=== PATIENT | female | born 1980 | race Caucasian/White ===

== ENCOUNTER 2023-04-21 07:54 | Outpatient (OUT) | payer OTHER, SELFPAY | END 2023-04-21 07:55 | disposition home or self-care (01) | LOC: PST 07:58 | PROVIDERS: PCP Family Medicine; Visit Provider Obstetrics & Gynecology | DX: Z01.818 Encounter for other preprocedural examination (principal); N92.0 Excessive and frequent menstruation with regular cycle; R10.2 Pelvic and perineal pain; N94.10 Unspecified dyspareunia ==

== ENCOUNTER 2023-04-28 05:57 | Day surgery (SDC) | payer OTHER, SELFPAY ==
[2023-04-21 08:39] VITALS: BP 114/73; PULSE 82; RESP 16; TEMP 36.1; O2SAT 97; BMI 30.6
[2023-04-28] VITALS (18 sets, daily range): BP systolic 97–127; BP diastolic 54–76; PULSE 69–96; RESP 10–20; TEMP 36.3–36.4; O2SAT 95–100; BMI 30.8
[2023-04-28 06:21] LABS: Basophils Absolute Auto 0.1 10^3/uL (0.0-0.1); Basophils Percent Auto 0.8 % (0.2-2.0); Eosinophils Absolute Auto 0.1 10^3/uL (0.0-0.7); Eosinophils Percent Auto 0.8 % (0.9-7.0); Hematocrit 38.8 % (36.0-48.0); Hemoglobin 12.9 g/dL (12.0-16.0); Immature Granulocytes Abs Auto 0.02 10^3/uL (0.00-0.03); Immature Granulocytes Pct Auto 0.3 % (0.0-0.5); Lymphocytes Absolute Auto 1.3 10^3/uL (1.2-3.8); Lymphocytes Percent Auto 21.2 % (20.5-60.0); Mean Corpuscular HGB Conc 33.2 g/dL (29.9-35.2); Mean Corpuscular Hemoglobin 31.7 pg (26.7-34.0); Mean Corpuscular Volume 95.3 fL (81.0-99.0); Mean Platelet Volume 9.1 fL (9.5-13.5); Monocytes Absolute Auto 0.7 10^3/uL (0.3-0.8); Monocytes Percent Auto 10.7 % (1.7-12.0); Neutrophils Absolute Auto 4.1 10^3/uL (1.4-6.5); Neutrophils Percent Auto 66.2 % (43.0-75.0); Platelet Count 329 10^3/uL (150-450); Red Blood Count 4.07 10^6/uL (4.20-5.40); White Blood Count 6.3 10^3/uL (4.0-11.0)
[2023-04-28] MEDS: SCOPOLAMINE 1 MG/3 DAYS TRANSDERM PATCH 1 PATCH TD (06:37)
[2023-04-28] MEDS: LACTATED RINGER'S SOLUTION 1,000 ML 50 ML IV (06:38)
[2023-04-28 06:47] LABS: HCG Quantitative <1 mIU/mL
[2023-04-28] MEDS: METOCLOPRAMIDE HCL 10 MG/2 ML VIAL IVP (06:57)
--- NOTE | 2023-04-28 08:06 | P.ON_ITS ---
Brief Operative Note Date of procedure: 04/28/23 Pre-op diagnosis: MENORRHAGIA, DYSMENORRHEA, FAILED IUD, PELVIC PAIN, DYSPAREU ZEHRA Post-op diagnosis: same as pre-op Procedure: NAME OF PROCEDURE: [diagnostic laparoscopy with lysis of omental adhesions] PROCEDURE: The patient was taken back to the Operating Room where she was placed in dorsal lithotomy position after given general anesthesia. The patient was prepped and draped in normal sterile fashion. A sponge stick was placed into the patient's vagina. Attention was turned to the patient's abdomen, where a small umbilical incision was made. The fascia was tented using Ed clamps and the fascia was entered sharply. Confirmation of intraabdominal placement of the 10 mm port was confirmed under direct visualization using a laparoscope. The patient's abdomen was then insufflated using CO2 gas with approximately 4 liters. A second port was placed right and left laterally, this was done under direct visualization with a 5 mm ports. Survey of the patient's abdomen demonstrated normal liver and gallbladder. Survey of the patient's pelvic anatomy demonstrated normal appearing rt and lt ovary and tubes as well as normal appearing uterus. No endometrial implants could be noted, no evidence of any pelvic disease was seen, normal appearing pelvic cavity. All instruments were removed from the patient's abdomen. significant omental adhesions with lysis using the ligasure apparatus. The patient's abdomen was deinsufflated of CO2 gas. The patient tolerated the procedure well. Sponge stick was removed from the patient's vagina. The patient's infraumbilical fascia was closed using #0 Vicryl on a GI needle. The patient's skin was closed laterally and infraumbilically using 4-0 Vicryl. The patient tolerated the procedure well. Sponge, lap and needle counts were correct x 2. The patient was taken to Recovery Room in stable condition.Clips from prior surgery noted adhered to bladder, the clips were grasped and gently removed Anesthesia: ILA Surgeon: John Arreguin Assurance Manager Insurance: Katrin Sorenson Estimated blood loss (mL): 5 Pathology: none sent Condition: stable Disposition: PACU
[2023-04-28] MEDS: HYDROMORPHONE HCL 0.5 MG/0.5 ML SYRINGE IV (08:46)
[2023-04-28] MEDS: LACTATED RINGER'S SOLUTION 1,000 ML 150 ML IV (09:47)
--- NOTE | 2023-04-28 10:36 | PC.NURSE ---
pt urinates without difficulty
== END 2023-04-28 10:40 | disposition home or self-care (01) ==
PROVIDERS: PCP Family Medicine; Visit Provider Obstetrics & Gynecology
PROC: (CPT 840; principal; 2023-04-28 07:00)
DX: N92.0 Excessive and frequent menstruation with regular cycle (principal); R10.2 Pelvic and perineal pain; N94.10 Unspecified dyspareunia; E88.81 Metabolic syndrome and other insulin resistance; E66.9 Obesity, unspecified; Z87.891 Personal history of nicotine dependence; Z90.49 Acquired absence of other specified parts of digestive tract; Z68.30 Body mass index [BMI] 30.0-30.9, adult; K66.0 Peritoneal adhesions (postprocedural) (postinfection)
CPT/HCPCS: 49329; 58301; 58558; 36415; 84702; 85025; 88305; J1170; J2704

== ENCOUNTER 2023-08-08 21:36 | Outpatient (REF) | payer BC, SELFPAY ==
[2023-08-12 05:07] LABS: Age Gdln ACOG Testing Note (.); HPV Aptima Negative (Negative); IGP, Aptima HPV, rfx 16/18,45 Note (.)
== END 2023-08-08 21:37 | disposition home or self-care (01) ==
LOC: LAB 21:36
PROVIDERS: PCP Family Medicine; Visit Provider Obstetrics & Gynecology
DX: Z01.419 Encounter for gynecological examination (general) (routine) without abnormal findings (principal)
CPT/HCPCS: 87624; G0145

== ENCOUNTER 2023-12-20 14:39 | Outpatient (OUT) | payer BC, SELFPAY ==
[2023-12-20 15:18] LABS: Basophils Percent Auto 0.7 % (0.2-2.0); Eosinophils Absolute Auto 0.1 10^3/uL (0.0-0.7); Eosinophils Percent Auto 0.8 % (0.9-7.0); Hematocrit 36.1 % (36.0-48.0); Hemoglobin 11.8 g/dL (12.0-16.0); Immature Granulocytes Abs Auto 0.01 10^3/uL (0.00-0.03); Immature Granulocytes Pct Auto 0.2 % (0.0-0.5); Lymphocytes Absolute Auto 1.4 10^3/uL (1.2-3.8); Lymphocytes Percent Auto 23.5 % (20.5-60.0); Mean Corpuscular HGB Conc 32.7 g/dL (29.9-35.2); Mean Corpuscular Hemoglobin 30.5 pg (26.7-34.0); Mean Corpuscular Volume 93.3 fL (81.0-99.0); Mean Platelet Volume 9.3 fL (9.5-13.5); Monocytes Absolute Auto 0.5 10^3/uL (0.3-0.8); Monocytes Percent Auto 7.8 % (1.7-12.0); Platelet Count 327 10^3/uL (150-450); Red Blood Count 3.87 10^6/uL (4.20-5.40); Red Cell Distribution Width 12.5 % (11.0-15.0)
[2023-12-20 15:48] LABS: INR 0.99; Partial Thromboplastin Time 30.1 sec (22.3-36.2); Prothrombin Time 10.5 sec (9.0-11.6)
[2023-12-20 16:00] LABS: Alanine Aminotransferase 31 U/L (14-59); Albumin Globulin Ratio 0.7; Albumin Level 3.4 g/dL (3.4-5.0); Alkaline Phosphatase 71 U/L (46-116); Anion Gap 13.3; Aspartate Amino Transferase 19 U/L (15-37); BUN Creatinine Ratio 15.5; Bilirubin Direct 0.1 mg/dL (0.0-0.2); Bilirubin Total 0.4 mg/dL (0.2-1.0); Calcium 9.3 mg/dL (8.5-10.1); Carbon Dioxide 27.3 mmol/L (21.0-32.0); Chloride 103 mmol/L (98-107); Estimated GFR (African America >60 (>=60); Estimated GFR (Non-African Ame >60 (>=60); Globulin 4.7 g/dL; Glucose 85 mg/dL (74-106); Potassium 3.6 mmol/L (3.5-5.1); Sodium 140 mmol/L (136-145); Total Protein 8.1 g/dL (6.4-8.2)
== END 2023-12-20 14:40 | disposition home or self-care (01) ==
LOC: PST 14:40
PROVIDERS: PCP Family Medicine; Visit Provider Obstetrics & Gynecology
DX: Z01.812 Encounter for preprocedural laboratory examination (principal); N92.0 Excessive and frequent menstruation with regular cycle; R10.2 Pelvic and perineal pain; N94.6 Dysmenorrhea, unspecified; N94.10 Unspecified dyspareunia
CPT/HCPCS: 80048; 80076; 85025; 85610; 85730; 86850; 86900; 86901

== ENCOUNTER 2023-12-29 13:40 | Inpatient (IN) | payer BC, SELFPAY ==
[2023-12-20 15:05] VITALS: BP 116/74; PULSE 67; TEMP 36.5; O2SAT 98; BMI 32.6
[2023-12-29] VITALS (13 sets, daily range): BP systolic 110–136; BP diastolic 69–84; PULSE 74–91; TEMP 36.2–36.9; O2SAT 92–100; BMI 31.8
[2023-12-29 11:27] LABS: Basophils Percent Auto 0.7 % (0.2-2.0); Eosinophils Absolute Auto 0.1 10^3/uL (0.0-0.7); Eosinophils Percent Auto 1.4 % (0.9-7.0); Hematocrit 40.8 % (36.0-48.0); Hemoglobin 13.4 g/dL (12.0-16.0); Immature Granulocytes Abs Auto 0.02 10^3/uL (0.00-0.03); Immature Granulocytes Pct Auto 0.3 % (0.0-0.5); Lymphocytes Absolute Auto 1.3 10^3/uL (1.2-3.8); Lymphocytes Percent Auto 22.5 % (20.5-60.0); Mean Corpuscular HGB Conc 32.8 g/dL (29.9-35.2); Mean Corpuscular Hemoglobin 30.4 pg (26.7-34.0); Mean Corpuscular Volume 92.5 fL (81.0-99.0); Monocytes Absolute Auto 0.6 10^3/uL (0.3-0.8); Monocytes Percent Auto 10.1 % (1.7-12.0); Neutrophils Absolute Auto 3.7 10^3/uL (1.4-6.5); Platelet Count 370 10^3/uL (150-450); Red Blood Count 4.41 10^6/uL (4.20-5.40); Red Cell Distribution Width 12.5 % (11.0-15.0); White Blood Count 5.7 10^3/uL (4.0-11.0)
[2023-12-29 11:51] LABS: HCG Quantitative <1 mIU/mL
[2023-12-29] MEDS: LACTATED RINGER'S SOLUTION 1,000 ML 50 ML IV ×2 (11:58→13:32)
[2023-12-29] MEDS: FAMOTIDINE/PF 20 MG/2 ML VIAL IV (11:59)
[2023-12-29] MEDS: SCOPOLAMINE 1 MG/3 DAYS TRANSDERM PATCH 1 PATCH TD (11:59)
[2023-12-29] MEDS: CEFAZOLIN SODIUM/DEXTROSE,ISO 2 GM/50 ML PIGGYBACK IV ×3 (12:34→23:39)
--- NOTE | 2023-12-29 14:31 | P.ON_ITS ---
Brief Operative Note Date of procedure: 12/29/23 Pre-op diagnosis general: pelvic pain, dysmenorrhea, dyspareunia, aub Post-op diagnosis: same as pre-op Procedure: NAME OF PROCEDURE: [ ]Total abdominal hysterectomy, bilateral salpingectomy with cystoscopy. PROCEDURE: Patient was taken back to the Operating Room where she was given general anesthesia without difficulty. She was then prepped and draped in the normal sterile fashion. A Pfannenstiel skin incision was then made 2 cm above the symphysis and pubis and carried down to underlying rectus fascia using a Bovie. The fascia was incised in the midline and extended bilaterally using Rivers scissors. Two Ed clamps were placed on the superior aspect of the fascia and dissected off the underlying rectus muscle. The same was performed on the inferior aspect as well. The muscle was then in the midline. The peritoneum was identified and entered bluntly. Peritoneum was then extended superiorly and inferiorly with good visualization of the bladder. An O'Lxqskhel-T-Waqpxu retractor was placed into the patient's abdomen. The bowel was packed away with moist laparotomy sponges and the bladder blade was inserted. A Leahey tenaculum was placed on the patient's uterus and used for retraction. LigaSure apparatus was then used to come across the mesosalpingx from the fimbriated end to the uteroovarian ligament on the patient's right side which was then cauterized and transected. TThis wascarried down serially through the broad ligament and across the round ligament. The bladder flap was then created using the Metzenbaum scissors, and thebladder was easily dissected off the patient's lower uterine segment. A curved Stephan was placed across the uterine artery on the right side which was clamped, transected, and suture ligated using #0 Monocryl. This was performed on the contralateral side as well. The bladder was further dissected and a Zeppelin clamp was then placed across the uterosacral and cardinal ligaments. This was transected and suture ligated using #0 Monocryl. This was performed on the contralateral side as well. The uterus was then amputated using Katie scissors. The patient's cuff was closed using #0 PDS in a running locked fashion and this was transfixed to the ipsilateral uterosacral and cardinal ligaments. Excellent hemostasis was assured. The patient's abdomen wascopiously irrigated using warm saline. Cystoscopy was performed. Bladder was intact. Efflux was noted from both ostia. Cystoscope was removed.After excellent hemostasis was assured, all instruments were removed from the patient's abdomen. The patient's peritoneum was closed using 3-0 Vicryl in a running fashion. The patient's fascia was closed using #0 Vicryl in a running fashion. The patient's skin was closed using 4-0 vicryl on a randell needle. The patient tolerated the procedure well. Sponge, lap, and needle counts were correct times two. Patient taken to the Recovery Room in stable condition Anesthesia: ILA Surgeon: John Arreguin Exceptional Student Education Teacher: Mily Napier Estimated blood loss (mL): 100 Pathology: none sent (uterus cervix and tube) Condition: stable Disposition: PACU Urinary Catheter Management Urinary Catheter Management Urethral: Cath placed during this visit: no
[2023-12-29] MEDS: HYDROMORPHONE HCL 0.5 MG/0.5 ML SYRINGE IV ×2 (15:05→15:11)
--- NOTE | 2023-12-29 15:27 | PC.NURSE ---
Medicated with IV Dilaudid as ordered
--- NOTE | 2023-12-29 15:30 | PC.NURSE ---
Medicated as ordered for pain
[2023-12-29] MEDS: OXYCODONE HCL/ACETAMINOPHEN 5MG/325MG 2 TAB PO (16:41)
[2023-12-29] MEDS: LACTATED RINGER'S SOLUTION 1,000 ML 125 ML IV (17:37)
[2023-12-29] MEDS: ONDANSETRON PF 4 MG/2 ML VIAL IV (23:43)
[2023-12-29] MEDS: KETOROLAC TROMETHAMINE 30 MG/ML VIAL IVP (23:43)
[2023-12-30] MEDS: LACTATED RINGER'S SOLUTION 1,000 ML 125 ML IV (01:26)
[2023-12-30 04:51] VITALS: BP 114/69; PULSE 69; TEMP 37.2; O2SAT 97
[2023-12-30 05:44] LABS: Basophils Percent Auto 0.2 % (0.2-2.0); Eosinophils Percent Auto 0.1 % (0.9-7.0); Hematocrit 35.4 % (36.0-48.0); Hemoglobin 11.5 g/dL (12.0-16.0); Immature Granulocytes Abs Auto 0.03 10^3/uL (0.00-0.03); Immature Granulocytes Pct Auto 0.2 % (0.0-0.5); Lymphocytes Absolute Auto 1.3 10^3/uL (1.2-3.8); Lymphocytes Percent Auto 10.4 % (20.5-60.0); Mean Corpuscular HGB Conc 32.5 g/dL (29.9-35.2); Mean Corpuscular Hemoglobin 30.5 pg (26.7-34.0); Mean Corpuscular Volume 93.9 fL (81.0-99.0); Mean Platelet Volume 9.7 fL (9.5-13.5); Monocytes Absolute Auto 1.4 10^3/uL (0.3-0.8); Monocytes Percent Auto 11.1 % (1.7-12.0); Neutrophils Absolute Auto 9.5 10^3/uL (1.4-6.5); Platelet Count 343 10^3/uL (150-450); Red Blood Count 3.77 10^6/uL (4.20-5.40); Red Cell Distribution Width 12.4 % (11.0-15.0); White Blood Count 12.2 10^3/uL (4.0-11.0)
[2023-12-30] MEDS: ENOXAPARIN SODIUM 40 MG/0.4 ML SYRINGE SUBQ (06:03)
[2023-12-30] MEDS: OXYCODONE HCL/ACETAMINOPHEN 5MG/325MG 1 TAB PO (09:04)
[2023-12-30] MEDS: MAGNESIUM HYDROXIDE 2,400 MG/10 ML ORAL.SUSP 2400 MG PO (09:04)
[2023-12-30] MEDS: KETOROLAC TROMETHAMINE 30 MG/ML VIAL IVP (09:51)
[2023-12-30] MEDS: SIMETHICONE 80 MG TAB.CHEW PO (09:57)
--- NOTE | 2023-12-30 11:43 | P.GYNPN_ITS ---
SYSTEMS ENG - PN: Subj Post-Op Interval history: denies cp sob ct, ambulating well, denies nv.d.f.c. positive flatus Subjective: patient reports feeling better, patient has no complaints and pain is well controlled Exam Constitutional Vital Signs, click to edit/add: Last Vital Signs Temp 98.9 F 12/30/23 04:51 Pulse 69 12/30/23 04:51 Resp 16 12/30/23 04:51 BP 114/69 12/30/23 04:51 Pulse Ox 97 12/30/23 04:51 O2 Del Method Room Air 12/30/23 04:51 Documenting provider has reviewed patient's vital signs: yes Common normals: no apparent distress Respiratory Common normals: normal respiratory effort and clear to auscultation bilaterally Cardio Common normals: regular rate and regular rhythm GI Common normals: Normal to inspection, nondistended, normoactive bowel sounds present Extremity Common normals: no clubbing, cyanosis or edema and no calf tenderness Results Labs Labs: Short CBC 12/30/23 Range/Units 04:33 WBC 12.2 H (4.0-11.0) 10^3/uL Hgb 11.5 L (12.0-16.0) g/dL Hct 35.4 L (36.0-48.0) % Plt Count 343 (150-450) 10^3/uL SYSTEMS ENG - A/P Postoperative Procedures: Procedures Operation Date: 12/29/23 12:30 Actual Procedure Side Surgeon p Total Abdominal Hysterectomy, Bilateral salpingectomy, Cystoscopy Not Applicable John Arreguin DO Postoperative day: 1 Postoperative status SYSTEMS ENG: doing well Post-operative plan SYSTEMS ENG: routine post-op care, discharge and other (precautions given, rx on chart, fu 1wk) Fall Risk Details Lewis fall scale risk level: Low Fall Risk Current medications: Current Medications Docusate Sodium (Docusate Sodium 100 Mg Capsule) 100 mg PO BID PRN PRN Reason: Constipation Enoxaparin Sodium (Enoxaparin Sodium 40 Mg/0.4 Ml Syringe) 40 mg SUBQ Q24H [facility] Last Admin: 12/30/23 06:03 Dose: 40 mg Lactated Ringer's (Lactated Ringers) 1,000 mls @ 125 mls/hr IV .Q8H [facility] Last Admin: 12/30/23 09:56 Dose: Not Given Promethazine HCl 25 mg/ Sodium (Chloride) 51 mls @ 204 mls/hr IV Q6H PRN PRN Reason: Nausea And Vomiting Ibuprofen (Ibuprofen 400 Mg Tablet) 800 mg PO Q6H PRN PRN Reason: Pain Ketorolac Tromethamine (Ketorolac Tromethamine 30 Mg/Ml Vial) 30 mg IVP Q6H PRN PRN Reason: Pain Last Admin: 12/30/23 09:51 Dose: 30 mg Ondansetron HCl (Ondansetron Pf 4 Mg/2 Ml Vial) 4 mg IV Q6H PRN PRN Reason: Nausea Last Admin: 12/29/23 23:43 Dose: 4 mg Oxycodone/Acetaminophen (Oxycodone Hcl/Acetaminophen 5mg/325mg) 1 tab PO Q6H PRN PRN Reason: Pain Last Admin: 12/30/23 09:04 Dose: 1 tab Oxycodone/Acetaminophen (Oxycodone Hcl/Acetaminophen 5mg/325mg) 2 tab PO Q6H VT N PRN Reason: Pain Last Admin: 12/29/23 16:41 Dose: 2 tab Simethicone (Simethicone 80 Mg Tab.Chew) 80 mg PO PCHS PRN PRN Reason: Abdominal Distention Last Admin: 12/30/23 09:57 Dose: 80 mg Temazepam (Temazepam 15 Mg Capsule) 30 mg PO QHS PRN PRN Reason: Sleep Time Spent With Patient Time: Total time spent is greater than 50% in coordination of care (as documented) at patient's floor/unit and/or counseling patient: Time with patient: less than 15 minutes Urinary Catheter Management Urinary Catheter Management Urethral: Cath placed during this visit: yes Urethral indwelling: No Insertion date: 12/29/23
--- OUTSIDE RECORDS SUMMARY | 2023-12-30 12:17 | XMS_ITS | CCD ---
Author Organization [facility] Care Team Providers Care Ip/Mosaic Technician Name Role Phone DONNA, DR BLACK Primary Care Unavailable ANASTACIA SANCHEZ Consulting Unavailable SHAYNA, DR KAREL Christy Attending Unavailable SHAYNA, DR KAREL Christy Admitting Unavailable CARROLL, DR MAY Consulting Unavailable CARROLL, DR MAY Admitting Unavailable CARROLL, DR MAY Attending Unavailable DONNA, DR BLACK Primary Care Unavailable SHAYNA, DR KAREL Christy Consulting Unavailable SHAYNA, DR KAREL Christy Admitting Unavailable SHAYNA, DR KAREL Christy Attending Unavailable DONNA, DR BLACK Primary Care Unavailable ANASTACIA SANCHEZ Consulting Unavailable DONNA, DR BLACK Primary Care Unavailable SHAYNA, DR KAREL Christy Attending Unavailable SHAYNA, DR KAREL Christy Admitting Unavailable EZEQUIEL, DR JJ Jordan Consulting Unavailable SHAYNA, DR KAREL Christy Consulting Unavailable DONNA, DR BLACK Primary Care Unavailable SHAYNA, DR KAREL Christy Consulting Unavailable SHAYNA, DR KAREL Christy Admitting Unavailable SHAYNA, DR KAREL Christy Attending Unavailable DONNA, DR BLACK Primary Care Unavailable ANASTACIA SANCHEZ Consulting Unavailable SHAYNA, DR KAREL Christy Admitting Unavailable SHAYNA, DR KAREL Christy Attending Unavailable ANASTACIA SANCHEZ Consulting Unavailable SHAYNA, DR KAREL Christy Attending Unavailable SHAYNA, DR KAREL Christy Admitting Unavailable DONNA, DR BLACK Primary Care Unavailable DONNA, DR BLACK Primary Care Unavailable SHAYNA, DR KAREL Christy Attending Unavailable SHAYNA, DR KAREL Christy Consulting Unavailable SHAYNA, DR KAREL Christy Admitting Unavailable DEVENDRA LOIVA Consulting Unavailable DONNA, DR BLACK Primary Care Unavailable SHAYNA, DR KAREL Christy Consulting Unavailable SHAYNA, DR KAREL Christy Admitting Unavailable SHAYNA, DR KAREL Christy Attending Unavailable SHAYNA, DR KAREL Christy Attending Unavailable DONNA, DR BLACK Consulting Unavailable SHAYNA, DR KAREL Christy Admitting Unavailable DONNA, DR BLCAK Primary Care Unavailable SHAYNA, DR KAREL Christy Consulting Unavailable CALEROHITESH MONTGOMERY Consulting Unavailable SHAYNA, DR KAREL Christy Attending Unavailable SHAYNA, DR KAREL Christy Admitting Unavailable DONNA, DR BLACK Consulting Unavailable HOY, DR BLACK Primary Care Unavailable SANCHEZ, ANASTACIA Consulting Unavailable HOOmar, DR BLACK Primary Care Unavailable SHAYNA, DR KAREL Christy Consulting Unavailable SHAYNA, DR KAREL Christy Admitting Unavailable SHAYNA, DR KAREL Christy Attending Unavailable DEVENDRA OLIVA Consulting Unavailable DONNA, DR BLACK Primary Care Unavailable SANCHEZ, ANASTACIA Consulting Unavailable SHAYNA, DR KAREL Christy Admitting Unavailable SHAYNA, DR KAREL Christy Attending Unavailable CORRAL, DR KAREL Christy Attending Unavailable CORRAL, DR KAREL Christy Consulting Unavailable CORRAL, DR KAREL Christy Admitting Unavailable HOY, DR BLACK Primary Care Unavailable HOY, DR BLACK Primary Care Unavailable CORRAL, DR KAREL Christy Consulting Unavailable SHAYNA, DR KAREL Christy Admitting Unavailable SHAYNA, DR KAREL Christy Attending Unavailable FOREIGN BERNAL Consulting Unavailable RUBINY, DR BLACK Admitting Unavailable HOY, DR BLACK Attending Unavailable HOY, DR BLACK Consulting Unavailable HOY, DR BLACK Primary Care Unavailable BROWNJJ Consulting Unavailable SHAYNA, DR KAREL Christy Consulting Unavailable SHAYNA, DR KAREL Christy Attending Unavailable REQUEST, DR BARRON LISTED Primary Care Unavaila ble SHAYNA, DR KAREL Christy Admitting Unavailable SHAYNA, DR KAREL Christy Attending Unavailable HOOmar, DR BLACK Consulting Unavailable SHAYNA, DR KAREL Christy Admitting Unavailable HOY, DR BLACK Primary Care Unavailable SANCHEZ, ANASTACIA Consulting Unavailable HOY, DR BLACK Primary Care Unavailable HOY, DR BLACK Admitting Unavailable HOOmar, DR BLACK Attending Unavailable SANCHEZ, ANASTACIA Admitting Unavailable ZIMEREDITH, DR CIARA Oliva Consulting Unavailable SANCHEZ, ANASTACIA Attending Unavailable HOY, DR BLACK Primary Care Unavailable SANCHEZ, ANASTACIA Consulting Unavailable SHAYNA, DR KAREL Christy Attending Unavailable SHAYNA, DR KAREL Christy Admitting Unavailable HOY, DR BLACK Primary Care Unavailable SHAYNA, DR KAREL Christy Consulting Unavailable SHAYNA, DR KAREL Christy Attending Unavailable SHAYNA, DR KAREL Christy Admitting Unavailable DONNA, DR BLACK Primary Care Unavailable CARROLL, DR MAY Consulting Unavailable CARROLL, DR MAY Admitting Unavailable CARROLL, DR MAY Attending Unavailable DONNA, DR BLACK Primary Care Unavailable YADIRA HODGES Attending Unavailable ANNA BRADEN Attending Unavailable ANNA BRADEN Attending Unavailable YADIRA HODGES Attending Unavailable Problems Active Problems Problem Classification Problem Date Documented Da te Episodic/Chronic Other connective tissue disease (1 source) Pain in left leg; Translations: [PAIN IN LEFT LEG] Onset: 04-22-2022 Episodic Other connective tissue disease (1 source) Pain in right leg; Translations: [PAIN IN RIGHT LEG] Onset: 04-22-2022 Episodic Other nervous system disorders (1 source) Other chronic pain; Translations: [OTHER CHRONIC PAIN] Onset: 04-22-2022 Chronic Spondylosis; intervertebral disc disorders; other back problems (12 sources) Spondylosis without myelopathy or radiculopathy, cervical region; Translations: [Spondylosis without myelopathy or radiculopathy, lumbar region] Onset: 07-23-2021 Chronic Spondylosis; intervertebral disc disorders; other back problems (20 sources) Radiculopathy, lumbar region; Translations: [Cervicalgia] Onset: 08-17-2021 Episodic Unclassified (4 sources) LOW BACK PAIN, UNSPECIFIED; Translations: [LOW BACK PAIN, UNSPECIFIED] Onset: 03-03-2022 Unclassified (1 source) CONTACT W/AND (SUSP) EXPOS COVID-19; Translations: [CONTACT W/AND (SUSP) EXPOS COVID-19] Onset: 01-27-2022 Past or Other Problems Problem Classification Problem Date Documented Date Episodic/Chronic Immunizations and screening for infectious disease (1 source) Encounter for screening for human papillomavirus (HPV); Translations: [ENC SCREENING HUMAN PAPILLOMAVIRUS] Onset: 01-13-2022 Episodic Other screening for suspected conditions (not mental disorders or infectious disease) (4 sources) Encounter for screening for malignant neoplasm of cervix; Translations: [ENC SCREENING MALIG NEOPLASM CERV] Onset: 01-11-2022 Episodic Other skin disorders (4 sources) Generalized hyperhidrosis; Translations: [GENERALIZED HYPERHIDROSIS] Onset: 01-12-2022 Episodic Residual codes; unclassified (4 sources) Localized edema; Translations: [LOCALIZED EDEMA] Onset: 07-28-2021 Episodic Unclassified (1 source) LOW BACK PAIN, UNSPECIFIED; Translations: [LOW BACK PAIN, UNSPECIFIED] Onset: 06-15-2022 Results Test Name Value Interpretation Reference Range Facility XR LSPINE W_OBLS AND FLEX_EX Ton 06-16-2022 XR LSPINE W_OBLS AND FLEX_EXT EXAMINATION: XR LSPINE W_OBLS AND FLEX_EXT HISTORY: Lumbar radiculitis COMPARISON: 12/14/2019 FINDINGS: BONES: Normal alignment of the lumbar spine with no acute fracture or spondylolisthesis. Minimal degenerative change DISC SPACES: Stable mild to moderate narrowing L5-S1 PARASPINOUS: Negative. No paraspinous abnormality is seen. OTHER: No transient spondylolisthesis with flexion or extension IMPRESSION: Stable degenerative changes with no dynamic instability Electronically authenticated by: JJ NIEVES Date: 2022-06-16 07:28 Normal [facility] XR CSPINE OBL FLEX_EXTon XR CSPINE OBL FLEX_EXT EXAMINATION: XR CSPINE OBL FLEX_EXT HISTORY: Neck pain ; acute cervical spine pain, no known injury COMPARISON: No relevant comparison available. FINDINGS: BONES: Straightening of the normal lordotic curvature. No fracture, spondylolisthesis, or change in alignment during flexion and extension. No facet joint widening or fracture. Minimal degenerative changes of the facet joints at C5-6 and C6-7. DISC SPACES: Minimal narrowing C4-5, C5-6, C6-7-7. PARASPINOUS: No paraspinous abnormality is seen. OTHER: Negative. IMPRESSION: 1. No appreciable acute abnormality. 2. Multilevel mild degenerative changes. Electronically authenticated by: CIARA ROQUE Date: 2022-03-31 15:57 Normal [facility] PREG HCG QUALon 01-26-2022 , QUAL Negative Normal NEGATIVE [facility] Comment on above: Performed By: #### P REG #### [facility] [address] [place] [address] Dr. Linnette Ventura [facility] SARS-CoV-2 (COVID-19) RNA AYAZ+probe Ql (Unsp spec) Not detected Normal NOT DETECTED [facility] Comment on above: Result Comment: When diagnostic testing is negative, the possibility of a false negative should be considered in the context of a patient's recent exposures and the presence of clinical signs and symptoms consistent with SARS-CoV-2. This test is not yet approved or cleared by the [place] FDA. When there are no FDA-approved or cleared tests available, and other criteria are met, FDA can make tests available under an emergency access mechanism called an Emergency Use Authorization (EUA). The EUA for this test is supported by the [place] of Health and Human Service's declaration that circumstances exist to justify the emergency use of in vitro diagnostics for the detection and/or diagnosis of the virus that causes COVID-19. This EUA will remain in effect for the duration of the COVID-19 declaration justifying emergency of IVDs, unless it is terminated or revoked by the FDA (after which the test may no longer be used). Performed By: #### C VDTB #### [facility] [address] [address] [address] Linnette Ventura PAP ACOG PANEL 2: 30 to 65on 01-15-2022 . . Normal [facility] Comment on above: Result Comment: Perf ormed at: WB Performed By: #### A 1C #### [facility] [address] [place] [address] Dr. Linnette Ventura Age Gdln ACOG Testing 30-65 Normal [facility] Comment on above: Performed By: #### A 1C #### [facility] [address] [place] [address] Dr. Linnette Ventura DIAGNOSIS: Comment Normal [facility] Comment on above: Result Comment: NEGA TIVE FOR INTRAEPITHELIAL LESION OR MALIGNANCY. Performed at: WB Performed By: #### A 1C #### [facility] [address] [place] [address] Dr. Linnette Ventura HPV Aptima Negative Normal Negative [facility] Comment on above: Result Comment: This nucleic acid amplification test detects fourteen high-risk HPV types (16,18,31,33,35,39,45,51,52,56,58,59,66,68) without differentiation. Performed at: =G Performed By: #### A 1C #### [facility] [address] [place] [address] Dr. Linnette Ventura Methodology: Comment Normal [facility] Comment on above: Result Comment: This liquid based ThinPrep(R) pap test was screened with the use of an image guided system. Performed at: WB Performed By: #### A 1C #### [facility] [address] [place] [address] Dr. Linnette Ventura Note: Comment Normal [facility] Comment on above: Result Comment: The Pap smear is a screening test designed to aid in the detection of premalignant and malignant conditions of the uterine cervix. It is not a diagnostic procedure and should not be used as the sole means of detecting cervical cancer. Both false-positive and false-negative reports do occur. . Performed at: WB Performed By: #### A 1C #### [facility] [address] [place] [address] Dr. Linnette Ventura Performed by: Comment Normal [facility] Comment on above: Result Comment: Anna Pollard, Irrigation Equipment Installer (ASCP) Performed at: WB Performed By: #### A 1C #### [facility] [address] [place] [address] Dr. Linnette Ventura Specimen adequacy: Comment Normal [facility] Comment on above: Result Comment: Sati sfactory for evaluation. Endocervical and/or squamous metaplastic cells (endocervical component) are present. Performed at: WB Performed By: #### A 1C #### [facility] [address] [place] [address] Dr. Linnette Ventura CBC AUTO DIFFon 01-12-2022 BASO # 0.0 103/ul Normal 0.0-0.1 [facility] Comment on above: Performed By: #### C BC #### [facility] [address] [place] [address] Dr. Linnette Ventura Basophils/100 WBC (Bld) 0.5 % Normal 0.2-2.0 [facility] Comment on above: Performed By: #### C BC #### [facility] [address] [place] [address] Dr. Linnette Ventura EO # 0.1 103/ul Normal 0.0-0.7 [facility] Comment on above: Performed By: #### C BC #### [facility] [address] [place] [address] Dr. Linnette Ventura Eosinophils/100 WBC (Bld) 1.8 % Normal 0.9-7.0 [facility] Comment on above: Performed By: #### C BC #### [facility] [address] [place] [address] Dr. Linnette Ventura Erythrocyte distribution width (RBC) [Ratio] 12.4 % Normal 11.0-15.0 [facility] Comment on above: Performed By: #### C BC #### [facility] [address] [place] [address] Dr. Linnette Ventura Hematocrit (Bld) [Volume fraction] 39.3 % Normal 36.0-48.0 [facility] Comment on above: Performed By: #### C BC #### [facility] [address] [place] [address] Dr. Linnette Ventura Hemoglobin (Bld) [Mass/Vol] 13.2 g/dL Normal 12.0-16.0 [facility] Comment on above: Performed By: #### C BC #### [facility] [address] [place] [address] Dr. Linnette Ventura IG # 0.02 10e3/ul Normal 0.00-0.03 [facility] Comment on above: Performed By: #### C BC #### [facility] [address] [place] [address] Dr. Linnette Ventura IG % 0.4 % Normal 0.0-0.5 [facility] Comment on above: Performed By: #### C BC #### [facility] [address] [place] [address] Dr. Linnette Ventura LYMPH # 1.4 103/ul Normal 1.2-3.8 [facility] Comment on above: Performed By: #### C BC #### [facility] [address] [place] [address] Dr. Linnette Ventura Lymphocytes/100 WBC (Bld) 24.7 % Normal 20.5-60.0 [facility] Comment on above: Performed By: #### C BC #### [facility] [address] [place] [address] Dr. Linnette Ventura MANUAL DIFF REQ NO Normal [facility] Comment on above: Performed By: #### C BC #### [facility] [address] [place] [address] Dr. Linnette Ventura MCH (RBC) [Entitic mass] 31.8 pg Normal 26.7-34.0 [facility] Comment on above: Performed By: #### C BC #### [facility] [address] [place] [address] Dr. Linnette Ventura MCHC (RBC) [Mass/Vol] 33.6 g/dL Normal 29.9-35.2 [facility] Comment on above: Performed By: #### C BC #### [facility] [address] [place] [address] Dr. Linnette Ventura MCV (RBC) [Entitic vol] 94.7 fL Normal 81.0-99.0 [facility] Comment on above: Performed By: #### C BC #### [facility] [address] [place] [address] Dr. Linnette Ventura MONO # 0.7 103/ul Normal 0.3-0.8 [facility] Comment on above: Performed By: #### C BC #### [facility] [address] [place] [address] Dr. Linnette Ventura Monocytes/100 WBC (Bld) 12.2 % Critically high 1.7-12.0 [facility] Comment on above: Performed By: #### C BC #### [facility] [address] [place] [address] Dr. Linnette Ventura NEUT # 3.3 103/ul Normal 1.4-6.5 [facility] Comment on above: Performed By: #### C BC #### [facility] [address] [place] [address] Dr. Linnette Ventura Neutrophils/100 WBC (Bld) 60.4 % Normal 43.0-75.0 [facility] Comment on above: Performed By: #### C BC #### [facility] [address] [place] [address] Dr. Linnette Ventura Platelet mean volume (Bld) [Entitic vol] 8.9 fL Critically low 9.5-13.5 [facility] Comment on above: Performed By: #### C BC #### [facility] [address] [place] [address] Dr. Linnette Ventura PLT 310 103/ul Normal 150-450 [facility] Comment on above: Performed By: #### C BC #### [facility] [address] [address] [address] Linnette Ventura RBC 4.15 106/ul Critically low 4.20-5.40 [facility] Comment on above: Performed By: #### C BC #### [facility] [address] [place] [address] Dr. Linnette Ventura WBC 5.5 103/ul Normal 4.0-11.0 [facility] Comment on above: Performed By: #### C BC #### [facility] [address] [place] [address] Dr. Linnette Ventura GLYCOHEMOGLOBIN A1Con 2021 ADA RECOMMENDATION SEE BELOW Normal [facility] Comment on above: Result Comment: ADA RECOMMENDED LIMIT 4.0 - 6.0 ADA THERAPEUTIC TARGET < 7.0 ACTION SUGGESTED > 7.0 Performed By: #### A 1C #### [facility] [address] [place] [address] Dr. Linnette Ventura Glucose [Mass/Vol] 100 mg/dL Normal [facility] Comment on above: Performed By: #### A 1C #### [facility] [address] [place] [address] Dr. Linnette Ventura HbA1c (Bld) [Mass fraction] 5.1 % Normal 4.5-6.2 [facility] Comment on above: Performed By: #### A 1C #### [facility] [address] [place] [address] Dr. Linnette Ventura TSHon 01-12-2022 TSH 0.789 uIU/mL Normal 0.358-3.740 [facility] Comment on above: Performed By: #### T SH #### [facility] [address] [place] [address] Dr. Linnette Ventura PREG HCG QUALon 12-22-2021 , QUAL Negative Normal NEGATIVE [facility] Comment on above: Performed By: #### P REG #### [facility] [address] [address] [address] Linnette Ventura Covid-19 PCR (CVDTB)on 11-29 SARS-CoV-2 (COVID-19) RNA AYAZ+probe Ql (Unsp spec) Not detected Normal NOT DETECTED [facility] Comment on above: Result Comment: This test is not yet approved or cleared by the [place] FDA. When there are no FDA-approved or cleared tests available, and other criteria are met, FDA can make tests available under an emergency access mechanism called an Emergency Use Authorization (EUA). The EUA for this test is supported by the [place] of Health and Human Service's (HHS's) declaration that circumstances exist to justify the emergency use of in vitro diagnostics for the detection and/or diagnosis of the virus that causes COVID-19. This EUA will remain in effect (meaning this test can be used) for the duration of the COVID-19 declaration justifying emergency of IVDs, unless it is terminated or revoked by FDA (after which the test may no longer be used). When diagnostic testing is negative, the possibility of a false negative should be considered in the context of a patient's recent exposures and the presence of clinical signs and symptoms consistent with SARS-CoV-2. Performed By: #### P REG #### [facility] [address] [place] [address] Dr. Linnette Ventura PREG HCG QUALon 12-01-2021 , QUAL Negative Normal NEGATIVE [facility] Comment on above: Performed By: #### P REG #### [facility] [address] [place] [address] Dr. Linnette Ventura Covid-19 PCR (CVDTB)on 10-31 SARS-CoV-2 (COVID-19) RNA AYAZ+probe Ql (Unsp spec) Not detected Normal NOT DETECTED [facility] Comment on above: Result Comment: This test is not yet approved or cleared by the [place] FDA. When there are no FDA-approved or cleared tests available, and other criteria are met, FDA can make tests available under an emergency access mechanism called an Emergency Use Authorization (EUA). The EUA for this test is supported by the [place] of Health and Human Service's (HHS's) declaration that circumstances exist to justify the emergency use of in vitro diagnostics for the detection and/or diagnosis of the virus that causes COVID-19. This EUA will remain in effect (meaning this test can be used) for the duration of the COVID-19 declaration justifying emergency of IVDs, unless it is terminated or revoked by FDA (after which the test may no longer be used). When diagnostic testing is negative, the possibility of a false negative should be considered in the context of a patient's recent exposures and the presence of clinical signs and symptoms consistent with SARS-CoV-2. Performed By: #### A 1C #### [facility] [address] [address] [address] Linnette Ventura PREG HCG QUALon 09-01-2021 , QUAL Negative Normal NEGATIVE [facility] Comment on above: Performed By: #### P REG #### [facility] [address] [address] [address] Linnette Ventura Covid-19 PCR (CVDTB)on 08-02 SARS-CoV-2 (COVID-19) RNA AYAZ+probe Ql (Unsp spec) Not detected Normal NOT DETECTED [facility] Comment on above: Result Comment: This test is not yet approved or cleared by the [place] FDA. When there are no FDA-approved or cleared tests available, and other criteria are met, FDA can make tests available under an emergency access mechanism called an Emergency Use Authorization (EUA). The EUA for this test is supported by the [place] of Health and Human Service's (HHS's) declaration that circumstances exist to justify the emergency use of in vitro diagnostics for the detection and/or diagnosis of the virus that causes COVID-19. This EUA will remain in effect (meaning this test can be used) for the duration of the COVID-19 declaration justifying emergency of IVDs, unless it is terminated or revoked by FDA (after which the test may no longer be used). When diagnostic testing is negative, the possibility of a false negative should be considered in the context of a patient's recent exposures and the presence of clinical signs and symptoms consistent with SARS-CoV-2. Performed By: #### C VDTBH #### [facility] [address] [place] [address] Dr. Linnette Ventura US CARL DOP LEG LTon 07-28-20 US CARL DOP LEG LT Ultrasound venous duplex scan left lower extremity CLINICAL: Left leg swelling TECHNIQUE: Boston-scale, color-flow, and Spectral Doppler examination of the left lower extremity were performed with and without provocative maneuvers. FINDINGS: Sonographic examination of the left lower extremity deep venous system to include the common femoral, superficial femoral and popliteal veins, demonstrates normal compressibility, color-flow, respiratory variation, and augmentation. The origin and proximal segment of the greater saphenous vein also demonstrates normal compression and color-flow. There is normal color-flow in the peroneal, posterior tibial, and anterior tibial veins. IMPRESSION: No deep venous thrombosis of the left lower extremity. Electronically authenticated by: JJ CARRILLO Date: 2021-07-28 17:24 Normal [facility] PREG HCG QUALon 07-21-2021 , QUAL Negative Normal NEGATIVE [facility] Comment on above: Performed By: #### P REG #### [facility] [address] [address] [address] Linnette Ventura Encounters Encounter Date Encounter Type Care Provider Facility Start: 11-30-2023 End: 11-30-2023 ambulatory YADIRA HODGES Not Available Start: 10-05-2023 End: 10-05-2023 ambulatory ANNA BRADEN Not Available Start: 09-05-2023 End: 09-05-2023 ambulatory ANNA BRADEN Not Available Start: 08-08-2023 End: 08-08-2023 ambulatory YADIRA HODGES Not Available Start: 07-01-[address] KAREL CORRAL Facili ty:[facility] Start: 06-15-2022 End: 06-16-[address] WAYNE SOLIMAN Facility:[facility] Start: 04-20-2022 End: 04-21-[address] KAREL CORRAL Facility:[facility] Start: 03-31-2022 End: 04-01-2022 ambulatory ANASTACIA SANCHEZ Facility:[facility] Start: 03-11-2022 End: 03-12-[address] KAREL CORRAL Facility:[facility] Start: 02-25-2022 End: 02-26-[address] KAREL CORRAL Facility:[facility] Start: 01-27-2022 Encounter for prepro cedural laboratory examination DR KAREL CORRAL [facility] Start: 01-26-2022 End: 01-26-[address] KAREL CORRAL Facility:[facility] Start: 01-22-2022 End: 01-23-[address] KAREL CORRAL Facility:[facility] Start: 01-22-2022 End: 01-23-2022 Encounter for preprocedural laboratory examination DR KAREL CORRAL Facility:[facility] Start: 01-12-2022 End: 01-13-[address] YADIRA HODGES Facility:[facility] Start: 01-11-2022 End: 01-11-[address] YADIRA HODGES Facility:[facility] Start: 01-06-2022 End: 01-07-[address] WAYNE SOLIMAN Facility:[facility] Start: 12-22-2021 End: 12-22-[address] WAYNE SOLIMAN Facility:[facility] Start: 12-17-2021 End: 12-18-[address] KAREL CORRAL Facility:[facility] Start: 12-09-2021 End: 12-10-[address] WAYNE SOLIMAN Facility:[facility] Start: 12-01-2021 End: 12-01-[address] WAYNE SOLIMAN Facility:[facility] Start: 11-27-2021 End: 11-28-[address] WAYNE SOLIMAN Facility:[facility] Start: 10-08-2021 End: 10-09-[address] WAYNE SOLIMAN Facility:[facility] Start: 09-01-2021 End: 09-01-[address] WAYNE SOLIMAN Facility:[facility] Start: 08-28-2021 End: 08-29-[address] WAYNE SOLIMAN Facility:[facility] Start: 08-06-2021 End: 08-07-2021 ambulatory ANASTACIA SANCHEZ Facility:[facility] Start: 08-03-[address] WAYNE SOLIMAN Facility :[facility] Start: 07-28-2021 End: 07-29-[address] WAYNE SOLIMAN Facility:[facility] Start: 07-21-2021 End: 07-21-[address] KAREL CORRAL Facility:[facility] Payers Date Payer Category Payer Unknown [id number] 2023 Unknown [id number] 1982 Unknown [id number] 2.16.84 0.1.340034.3.579.2.593 1982 Unknown [id number] 2.16.84 0.1.327584.3.579.2.593 1982 Unknown [id number] 2.16.84 0.1.275594.3.579.2.593 1982 Unknown [id number] 2.16.84 0.1.418642.3.579.2.593 1982 Unknown [id number] 2.16.84 0.1.250047.3.579.2.593 1982 Unknown [id number] 2.16.84 0.1.235076.3.579.2.593 1982 Unknown [id number] 2.16.84 0.1.169438.3.579.2.593 1982 Unknown [id number] 2.16.84 0.1.476307.3.579.2.593 1982 Unknown [id number] 2.16.84 0.1.738125.3.579.2.593 1982 Unknown [id number] 2.16.84 0.1.009142.3.579.2.593 1982 Unknown [id number] 2.16.84 0.1.761353.3.579.2.593 1982 Unknown [id number] 2.16.84 0.1.170501.3.579.2.593 1982 Unknown [id number] 2.16.84 0.1.156153.3.579.2.593 1982 Unknown [id number] 2.16.84 0.1.684604.3.579.2.593 1982 Unknown [id number] 2.16.84 0.1.789369.3.579.2.593 1982 Unknown [id number] 2.16.84 0.1.466777.3.579.2.593 1982 Unknown [id number] 2.16.84 0.1.587303.3.579.2.593 1982 Unknown [id number] 2.16.84 0.1.344758.3.579.2.593 1982 Unknown [id number] 2.16.84 0.1.684629.3.579.2.593 1982 Unknown [id number] 2.16.84 0.1.240713.3.579.2.593 1982 Unknown [id number] 2.16.84 0.1.198192.3.579.2.593 1982 Unknown [id number] 2.16.84 0.1.332191.3.579.2.593 1982 Unknown [id number] 2.16.84 0.1.416206.3.579.2.593 1982 Unknown [id number] 2.16.84 0.1.083028.3.579.2.1259 1982 Unknown [id number] 2.16.84 0.1.754317.3.579.2.1259 1982 Unknown [id number] 2.16.84 0.1.000091.3.579.2.1259 1982 Unknown [id number] 2.16.84 0.1.445094.3.579.2.1259 1959 Unknown [id number] Consultation note 04-20-2022 Note Date & Type Note Facility 04-20-2022 Note CONSULTATION CONSULTATION DATE: 04/20/2022 CHIEF COMPLAINT: Chronic low back pain, bilateral leg pain. HISTORY OF PRESENT ILLNESS: This is a 41-year-old female who reports 8-9/10 pain. The patient ambulates without any assistive devices and in a fluid manner and with a normal gait. The patient reports any activity such as twisting, bending, housework activities, squatting aggravate the patient's pain along with ADLs. The patient reports sleep disturbances secondary to the pain. The patient also has a new pain in her cervical region. X-ray of the cervical spine was done. Reports are noted on to the chart. Minor degenerative changes are noted. The patient currently takes Motrin 800 mg q.a.m., Adipex 37 mg daily, Excedrin. The patient's PAST MEDICAL HISTORY / SURGICAL HISTORY / REVIEW OF SYSTEMS are noted on the chart, along with the MEDICATION LIST / ALLERGIES and the X-RAY of her cervical spine. PHYSICAL EXAMINATION: Upon physical examination, this is a pleasant, cooperative female, who does not appear to be in any acute distress. VITAL SIGNS: Stable at 114/78 with a heart rate of 75. At a height of 5'8 , the patient weighs 90 kg. FOCUSED EVALUATION: It was difficult to evaluate the patient because the patient had an exaggerated, non-physiological jump response when palpating the cervical region. The similar response was noted in her lumbar spine. EXTREMITIES: Motor examination of the lower extremity - The patient has good muscle tone in her lower extremities bilaterally. No pedal edema. MUSCULOSKELETAL: Intact at 5/5. NEUROLOGICALLY: Due to the leggings, difficult to ascertain the patient's sensory evaluation. PSYCHIATRICALLY: Affect is appropriate. IMPRESSION: Current working diagnosis on the patient is chronic low back pain, bilateral lower extremity pain, etiology unclear; significant non-physiological jump response. PLAN: We will get a simple x-ray, flexion/extension, of her lumbar spine. Depending on the results there, we will consider the possibility of a lumbar MRI, given the patient's age and her complaint of the bilateral leg discomfort. The patient understands and would like to proceed. CC: aWyne Soliman M.D. [facility] Consultation note 03-11-2022 Note Date & Type Note Facility 03-11-2022 Note CONSULTATION PROCEDURE DATE: 03/11/2022 PROCEDURE NOTE PREOPERATIVE DIAGNOSIS: Bilateral lumbar paravertebral spasms. POSTOPERATIVE DIAGNOSIS: Bilateral lumbar paravertebral spasms. PROCEDURE: Bilateral lumbar trigger point injections. Subsequent to obtaining informed consent, the patient was placed in the supine position. Alcohol prep was used to sterilize the site. A 25 gauge needle with 0.125% Marcaine and 20 mg of Kenalog was divided into two sites. The needle was placed to rest inside the trigger zone. Negative heme. Medication was injected in a fan-like pattern. Patient tolerated procedure well without overt complications. The patient will be followed up in the office in approximately two weeks' time and, in addition, a cervical x-ray will be sent. We will review that x-ray at her follow up. [facility] Consultation note 02-25-2022 Note Date & Type Note Facility 02-25-2022 Note CONSULTATION CONSULTATION DATE: 02/25/2022 HISTORY OF PRESENT ILLNESS: This is a 41-year-old female returning to the clinic status post bilateral lumbar RFA of L2, L3 and L4, L5 completed on 01/26/2022. The patient states she received 50% relief for approximately one week. The patient feels that she has been generally unresponsive to procedures and it is becoming frustrating for her. She currently takes Motrin 800 mg daily, in addition to Adipex, tizanidine 4 mg q.h.s. and tramadol 50 mg b.i.d. The patient feels the tramadol is not effective and would like that medication discharged. She is asking for no other medications at this time. Activities such as standing, walking, sitting, squatting, housework and lifting aggravate her pain. She is considering possibly applying for a medical marijuana card by her PCP. Patient does have sustained allodynia to her diffuse lower back as well as lower lumbar swelling, which is chronic. Patient's REVIEW OF SYSTEMS / PAST MEDICAL HISTORY / ALLERGIES and IMAGES have been reviewed and they are noted on the chart. PHYSICAL EXAM: VITAL SIGNS: Blood pressure is 117/74. Heart rate is 56. Temperature is 98.4. She is 5'8 and weighs 91.8 kg. GENERAL APPEARANCE: Pleasant, appropriate, no acute distress. FOCUSED EXAM - BACK: Diffuse allodynia and edema to her lower lumbar area. No reproduction of spinal axial pain to compression along the facets, which is indicative of successful RFA. Paravertebral muscle tenderness and trigger points identified bilateral lower lumbar area. Positive jump response. Laura's point is non-tender bilaterally. MUSCULOSKELETAL: Motor is intact, 4/5 bilateral to lower extremities. Patient walks with a stable gait, has good muscle tone.. NEUROLOGICAL: Negative polyneuropathy. Radicular sensory is intact to lower extremities. IMPRESSION: Lumbar spondylosis, lumbar degenerative disc, chronic lower back pain and lumbar spasms. PLAN: We will pre-authorize with her insurance for bilateral lumbar trigger point injections. Her spasms are severe enough that compression of those reproduces her pain pattern. I believe she would greatly benefit from these injections. We discussed about an inversion table and patient is going to do her own research on that. Patient will be brought back to the clinic pending authorization for trigger point injections, and patient agrees with this plan. The trigger point injections would be to bilateral trapezius, one injection each side, with 0.125% Marcaine and 20 mg of Kenalog into each site, total of two injections. [facility] Consultation note 01-06-2022 Note Date & Type Note Facility 01-06-2022 Note CONSULTATION CONSULTATION DATE: 01/06/2022 This is a 41-year-old female returning to the clinic status post #2 bilateral MBB to L2, L3 and L4, L5 completed on 12/22/2021. The patient reports it gave her 80% relief for approximately 3 hours. Today she reports her pain 6 out of 10 and is in her lower lumbar area. She does report her legs feeling weak and jello-like by the end of her shift. 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 The patient did have an episode of emesis during her last procedure which was done under local anesthesia. The patient does have concern about getting sick when it comes to her ablation procedures. Current medications include Zanaflex 4 mg q.h.s., Tramadol 50 mg q. day p.r.n., lidocaine gel and 800 mg of ibuprofen. It was recommended at her last appointment to try Solarcaine spray which the patient did but she was not happy with the sensation it gave her. She continues to have numbness, tingling and weakness to bilateral lower extremities. Right is greater than left. She reports no falls or injuries. REVIEW OF SYSTEMS, PAST MEDICAL HISTORY, ALLERGIES AND IMAGES: Have been reviewed and noted in the chart. PHYSICAL EXAM: VITAL SIGNS: Blood pressure 120/74, heart rate is 85, temperature is 98.2. Height is 5'8 , weighs 92.2 kg. GENERAL APPEARANCE: No acute distress. The patient is pleasant and appropriate. FOCUSED EXAM: BACK: Allodynia, diffusely across the lower lumbar region. Reproduction of spinoaxial pain to direct compression along the posterior elements of lumbar facets of L2, L3 and L4 and L5 bilaterally, which is concurrent with ill facet arthropathy, lumbar spondylosis. The patient does radiate to the level of the knee on the right lower extremity. Laura's point is mildly tender to the right with no referral to the groin. MUSCULOSKELETAL: The patient ambulates with a steady gait; does not use assistive device. Muscle density is good. Motor is intact, 5 out of 5 strength bilaterally. NEUROLOGICAL: Patchy hypesthesia noted along L4-5 bilaterally, right greater than left. Plus 1 bilateral patellar reflexes. DIAGNOSIS: Lumbar spondylosis, lumbar degenerative disk, lumbar radiculitis spinoaxial lower back PLAN: We will due a U-tox in the office today. Medications were reinforced as was nutrition and vitamin importance. We will gain authorization to move forward with radiofrequency ablation starting on the right side of L2, L3 and L4, L5 and subsequently move to the left. This will be done under general sedation and I recommend the patient be pre-medicated with 4 mg of IV Zofran prior to the procedure. She is to continue using her Biofreeze and stretches were recommended for her paravertebral muscle. The patient agrees with the plan of care and would like to move forward. [facility] Signed and Approved by: ANASTACIA SANCHEZ . 01/14/2022 16:04:00 [facility] Consultation note 12-09-2021 Note Date & Type Note Facility 12-09-2021 Note CONSULTATION CONSULTATION DATE: 12/09/2021 HISTORY: This is a 41-year-old female, returned to the clinic status post #1 bilateral MBB to L2, L3 and L4, L5 completed on 12/01/2021 that afforded her 80% relief for two hours. Patient was very satisfied with the results and had decreased paresthesia to her bilateral lower legs. Today, she feels her pain is back at baseline and reports it 6/10 and sharp. Activities that aggravate her pain are twisting, turning, pushing, pulling, bending, stairs and lifting. Washing dishes particularly bother her. She does take ibuprofen 800 mg daily in addition to tramadol 50 mg b.i.d. and the use of lidocaine gel. She does not find the gel helpful. She is willing to move forward with the rhizotomy series. Patient's REVIEW OF SYSTEMS / PAST MEDICAL HISTORY / ALLERGIES and IMAGES have been reviewed and they are noted on the chart. PHYSICAL EXAM: VITALS: Blood pressure is 114/74. Heart rate is 89. Temperature is 97.8. She is 5'8 and weighs 93 kg. FOCUSED EXAM - BACK: Range of motion is guarded in lateral rotation, left over right. Flexion and extension are limited as well. Bilateral paravertebral muscles are non-spasmodic but taut. Reproduction of spinal axial pain to direct compression along the posterior elements of the facets that does radiate below the knees. This is concordant with facet arthropathy, lumbar spondylosis at L2, L3 and L4, L5 bilaterally. Laura's point is tender to the right. Levi's is negative. MUSCULOSKELETAL: Motor is intact, 4/5 bilaterally. Patient walks with a stable gait. NEUROLOGICAL: Patchy hypoesthesia noted along bilateral lower extremities to L5-S1 distribution. IMPRESSION: Lumbar degenerative disc disease, lumbar radiculitis, lumbar spondylosis and spinal axial lower back pain. PLAN: Will gain authorization to move forward with the #2 bilateral MBB to L2, L3 and L4, L5. She will be placed on muscle relaxer, Zanaflex 4 mg q.h.s. She was encouraged to use a heat rub and a heat source daily, in addition to taking magnesium glycinate 400 mg q.h.s. Patient states understanding and would like to proceed with the next injection. She will be followed up post procedure. [facility] Signed and Approved by: ANASTACIA SANCHEZ . 12/10/2021 12:52:00 [facility] Consultation note 10-08-2021 Note Date & Type Note Facility 10-08-2021 Note CONSULTATION PAIN MANAGEMENT CONSULTATION This is a pleasant and active 41-year-old female reporting to the clinic status post lumbar epidural steroid injection on 09/01/2021 that the patient reports minimal relief. Today she reports her pain is 6 out of 10. 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 She did have a bilateral medial branch block of L1, L2 and L3, L4 that afforded here minimal relief. The patient feels that we went to high with the procedure as she feels pain much lower. Due to soreness, she is unable to touch her skin in her back along the upper gluteal region. She reports a grinding feeling in her hips. Activities that aggravate her pain are prolonged standing, bending, twisting, turning and transitioning to positions. Activities that mitigate the pain are the use of heat. She takes Motrin 800 mg b.i.d. which she reports minimal to no help. She is inquiring about something different for pain relief. REVIEW OF SYSTEMS, PAST MEDICAL HISTORY, ALLERGIES AND IMAGES: Have been reviewed and noted in the chart. PHYSICAL EXAM: VITAL SIGNS: Blood pressure 97/65, heart rate is 94. Height 5'7 , weighs 89 kg. GENERAL APPEARANCE: No acute distress, pleasant and appropriate. FOCUSED EXAM: Back: Reproduction of the patent's spinal axial pain noted to direct compression of the facets of L2, L3 and L4; L5. Laura's point is tender bilaterally. Levi's as well as compression or thigh thrust test is positive. Range of motion is functional but somewhat guarded in lateral rotation and flexion and extension. MUSCULOSKELETAL: Motor is intact, 4 out of 5 bilaterally. No vasomotor changes. NEUROLOGICAL: Patchy hypesthesia noted along the L4, L5 dermatome to the level of her ankles bilaterally. DIAGNOSIS: Lumbar spondylosis, lumbar radiculitis, lumbar disk displacement and spinal axial lower back pain. PLAN: After discussion with the patient, we agreed to move lower with her MBBs with #1 MBB to L2, L3 and L4, L5. We will start her on Tramadol 50 mg b.i.d. P. r.n. pain. We will start her on tramadol 50 mg b.i.d., p.r.n. for pain. She is to continue with heat rub and with an option to use Salonpas Lidocaine patch for her allodynia. The patient agrees with the plan of care and would like to proceed. She will be followed up in the office post procedure IFC Signed and Approved by: ANASTACIA SANCHEZ . 10/15/2021 12:38:00 [facility] Consultation note 08-06-2021 Note Date & Type Note Facility 08-06-2021 Note [facility] [place], [place] NAME: LIANA JONES DATE OF : MEDICAL REC#: [id number] COLORER MACHINE: JAREN CASE ADMIT DATE: 08/06/2021 14:56:00 VICE INVESTIGATOR DATE: 08/10/2021 10:00 DICTATING PHYSICIAN: ANASTACIA SANCHEZ DICTATION DATE: 08/06/2021 16:00 PAIN MANAGEMENT Consultation Date: 08-06-21 HISTORY OF PRESENT ILLNESS: This is a pleasant 41 year-old female who returns to the clinic status post #1 bilateral medial branch block to L1, L2 and L3, L4 completed on 07-21-21 that afforded her zero relief. Today the patient is stating she has increased weakness in her legs and feels that her Motrin is decreasing the pain but not to a great effect. She states since the injection she feels her left foot has been swollen. She followed up with her PCP Dr. Soliman and testing was sent to rule-out a DVT in her left lower leg. She does ambulate and get around just fine. Has no history of falls. She was doing Physical Therapy for her lower back and had a total of 26 visits and she has thus far completed 18. MEDICATIONS: Ibuprofen 800 mg b.i.d., multivitamin, Adipex. ADL: Activities that aggravate her pain are pushing, pulling, sitting, bending, lifting, and activity. Squatting is extremely uncomfortable for her. Standing decreases the pain. Shes complaining of skin sensitivity to the area of her injections and it is difficult to keep her waistband of her cloths over that area. REVIEW OF SYSTEMS / PAST MEDICAL HISTORY / ALLERGIES / IMAGES and MEDICATIONS: Have been reviewed and are noted in the chart. PHYSICAL EXAM: VITALS:Blood pressure 116/70, heart rate 81, temperature 97.8, height 170 cm, weight 197 pounds. GENERAL:Pleasant in no acute distress. FOCUSED EXAM BACK: Allodynia diffusely across her lower lumbar region. Range of motion is functional, however, guarded in lateral rotation. The patient is unable to tolerate a spinal axial exam or compression to her facets. Possible hematoma to lumbar region. MUSCULOSKELETAL:Motor is intact 4/5 bilaterally. Ambulates with a steady gait with no assist device. NEUROLOGICALLY:Patchy hypoesthesia town bilateral lower extremities along the L4, L5 dermatomes. DIAGNOSIS: 1. Chronic lower back pain. 2. Lumbar neuritis. 3. Lumbar spondylosis. PLAN: 1. I encouraged the patient to use Solarcaine spray on her lower back for the allodynia. 2. At this time and in reviewing the patient's MRI with her, we will not proceed with a #2 bilateral medial branch block, however, we will do a lumbar epidural steroid injection at the level of L3, L4. 3. In addition, the patient is inquiring about aquatic therapy and a TENS unit, stating that that has helped her in the past when doing Physical Therapy. A repeat referral for those services will be given. The patient agrees to proceed with the plan of care and will be followed up in the office post procedure. Electronically Authenticated and Edited by: Anastacia Sanchez CNP on 08/16/2021 11:41 PM EST [facility] Signed and Approved by: ANASTACIA SANCHEZ . 08/16/2021 23:41:00 [facility] Summary Purpose Family History No Family History Records FoundNo Family History Records Found Advance Directives No Advanced Directives Records FoundNo Advanced Directives Records Found Additional Source Comments INFORMATION SOURCE (unrecogn ized section and content) DATE CREATED AUTHOR 07/07/2022 [facility] DATE CREATED AUTHOR 'S ORGANIZ ATION 12/02/[address] [facility] FOR RECORDS PERTAINING TO PATIENTS WHO ARE OR HAVE BEEN ENROLLED IN A CHEMICAL DEPENDENCY/SUBSTANCEABUSE PROGRAM, SOME INFORMATION MAY BE OMITTED. This clinical summary was aggregated from multiple sources. Caution should be exercised in using it in the provision of clinical care. This summary normalizes information from multiple sources, and as a consequence, information in this document may materially change the coding, format and clinical context of patient data. In addition, data may be omitted in some cases. CLINICAL DECISIONS SHOULD BE BASED ON THE PRIMARY CLINICAL RECORDS. [employer] provides no warranty or guarantee of the accuracy or completeness of information in this document.
--- NOTE | 2024-01-02 15:30 | CM.DCFOLLOWU ---
Person spoke with: patient How are you feeling? alright, still some pain How is your pain? still some pain, no bowel movement Did you understand your discharge instructions? yes Do you have any questions about your discharge instructions? no Were you given any prescriptions at discharge? yes Were you able to get your prescriptions filled? yes Do you understand how to take your medications as ordered? yes Do you have any questions about your follow up appointment and do you plan to keep your follow up appointment? no questions, concerns about no bowel movement, has follow up 01/05/[address] Arreguin. Advised to call Dr. Soliman or Dr. Arreguin's office if no BM and pain continues Is there anything else that you would like to discuss? no Questions/Comments/Concerns/Other: no
== END 2023-12-30 13:01 | disposition home or self-care (01) | DRG 743 ==
LOC: SURGOUT 16:01 → MS 12-30 12:14
PROVIDERS: Admitting Provider Obstetrics & Gynecology; PCP Family Medicine; Visit Provider Obstetrics & Gynecology
PROC: 0UT90ZZ Resection of Uterus, Open Approach (ICD-10-PCS; principal; 2023-12-29 12:30)
DX: N92.0 Excessive and frequent menstruation with regular cycle (principal); R10.2 Pelvic and perineal pain; N94.6 Dysmenorrhea, unspecified; N94.10 Unspecified dyspareunia; N93.9 Abnormal uterine and vaginal bleeding, unspecified; Z87.891 Personal history of nicotine dependence; Z90.49 Acquired absence of other specified parts of digestive tract; E66.9 Obesity, unspecified; Z68.30 Body mass index [BMI] 30.0-30.9, adult
CPT/HCPCS: 36415; 84702; 85025; 88307; 94667; 96372; 96374; 96375; 96376; J1094; J1170; J2704

== ENCOUNTER 2024-06-26 08:43 | Outpatient (OUT) | payer BC, SELFPAY ==
[2024-06-26 09:04] LABS: Basophils Percent Auto 0.5 % (0.2-2.0); Eosinophils Percent Auto 0.3 % (0.9-7.0); Hematocrit 38.5 % (36.0-48.0); Hemoglobin 12.8 g/dL (12.0-16.0); Immature Granulocytes Abs Auto 0.01 10^3/uL (0.00-0.03); Immature Granulocytes Pct Auto 0.2 % (0.0-0.5); Lymphocytes Absolute Auto 1.1 10^3/uL (1.2-3.8); Lymphocytes Percent Auto 17.4 % (20.5-60.0); Mean Corpuscular HGB Conc 33.2 g/dL (29.9-35.2); Mean Corpuscular Hemoglobin 30.5 pg (26.7-34.0); Mean Corpuscular Volume 91.9 fL (81.0-99.0); Mean Platelet Volume 9.1 fL (9.5-13.5); Monocytes Absolute Auto 0.6 10^3/uL (0.3-0.8); Monocytes Percent Auto 8.5 % (1.7-12.0); Neutrophils Absolute Auto 4.7 10^3/uL (1.4-6.5); Neutrophils Percent Auto 73.1 % (43.0-75.0); Platelet Count 351 10^3/uL (150-450); Red Blood Count 4.19 10^6/uL (4.20-5.40); Red Cell Distribution Width 12.7 % (11.0-15.0); White Blood Count 6.5 10^3/uL (4.0-11.0)
--- OUTSIDE RECORDS SUMMARY | 2024-06-26 09:07 | XMS_ITS | CCD ---
Author Organization [facility] Care Team Providers Care Grain Processor Name Role Phone DONNA, DR BLACK Primary Care Unavailable ANASTACIA SANCHEZ Consulting Unavailable SHAYNA, DR KAREL Christy Attending Unavailable SHAYNA, DR KAREL Christy Admitting Unavailable KALLIE, DR MAY Consulting Unavailable KALLIE, DR MAY Admitting Unavailable KALLIE, DR MAY Attending Unavailable DONNA, DR BLACK [...] SHAYNA, DR KAREL Christy Admitting Unavailable DEVENDRA OLIVA Consulting Unavailable DONNA, DR [...] KAREL Christy Admitting Unavailable HOY, DR BLACK Consulting Unavailable HOY, DR BLACK Primary Care Unavailable SANCHEZ, ANASTACIA Consulting Unavailable HOY, DR BLACK Primary Care Unavailable CORRAL, DR KAREL Christy Consulting Unavailable SHAYNA, DR KAREL Christy Admitting Unavailable CORRAL, DR KAREL Christy Attending Unavailable DEVENDRA OLIVA Consulting Unavailable HOY, DR BLACK Primary Care Unavailable SANCHEZ, ANASTACIA Consulting Unavailable SHAYNA, DR KAREL Christy Admitting Unavailable CORRAL, DR KAREL Christy Attending Unavailable CORRAL, DR KAREL Christy Attending Unavailable CORRAL, DR KAREL Christy Consulting Unavailable CORRAL, DR KAREL Christy Admitting Unavailable HOY, DR BLACK Primary Care Unavailable HOY, DR BLACK Primary Care Unavailable SHAYNA, DR KAREL Christy Consulting Unavailable SHAYNA, DR KAREL Christy Admitting Unavailable CORRAL, DR KAREL Christy Attending Unavailable FOREIGN BERNAL Consulting Unavailable HOY, DR BLACK Admitting Unavailable HOY, DR BLACK Attending Unavailable HOY, DR BLACK Consulting Unavailable HOY, DR BLACK Primary Care Unavailable BROWN, JJ Consulting Unavailable SHAYNA, DR KAREL Christy Consulting Unavailable SHAYNA, DR KAREL Christy Attending Unavailable REQUEST, DR BEATRICE STUART Primary Care Unavaila ble SHAYNA, DR KAREL Christy Admitting Unavailable CORRAL, DR KAREL Christy Attending Unavailable HOY, DR BLACK Consulting Unavailable CORRAL, DR KAREL Christy Admitting Unavailable HOY, DR BLACK Primary Care Unavailable SANCHEZ, ANASTACIA Consulting Unavailable HOY, DR BLACK Primary Care Unavailable HOY, DR BLACK Admitting Unavailable HOY, DR BLACK Attending Unavailable SANCHEZ, ANASTACIA Admitting Unavailable ZIEBER, DR CIARA Oliva Consulting Unavailable SANCHEZ, ANASTACIA Attending Unavailable HOY, DR BLACK Primary Care Unavailable SANCHEZ, ANASTACIA Consulting Unavailable CORRAL, DR KAREL Christy Attending Unavailable CORRAL, DR KAREL Christy Admitting Unavailable HOY, DR BLACK Primary Care Unavailable CORRAL, DR KAREL Christy Consulting Unavailable SHAYNA, DR KAREL Christy Attending Unavailable CORRAL, DR KAREL Christy Admitting Unavailable HOY, DR BLACK Primary Care Unavailable KALLIE, DR MAY Consulting Unavailable KALLIE, DR MAY Admitting Unavailable KALLIE, DR MAY Attending Unavailable HOY, DR BLACK Primary Care Unavailable KALLIE, YADIRA Attending Unavailable ASIYA, ANNA Attending Unavailable ASIYA, ANNA Attending Unavailable KALLIEYADIRA Attending Unavailable KALLIEYADIRA STERN Attending Unavailable KALLIEYADIRA STERN Attending Unavailable Liliane Taylor Attending Unavailable Kallie, Yadira Referring Unavailable Liliane Taylor Attending Unavailable Problems Active Problems Problem Classification Problem Date Documented Da te Episodic/Chronic Other connective tissue disease (1 source) Pain in left leg; Translations: [PAIN IN LEFT LEG] Onset: 04-22-2022 Episodic Other connective tissue disease (1 source) Pain in right leg; Translations: [PAIN IN RIGHT LEG] Onset: 04-22-2022 Episodic Other nervous system disorders (2 sources) Other chronic pain; Translations: [OTHER CHRONIC PAIN] Onset: 04-22-2022 Chronic Spondylosis; intervertebral disc disorders; other back problems (12 sources) Spondylosis without myelopathy or radiculopathy, cervical region; Translations: [Spondylosis without myelopathy or radiculopathy, lumbar region] Onset: 07-23-2021 Chronic Unclassified (4 sources) LOW BACK PAIN, UNSPECIFIED; [...] [ENC SCREENING HUMAN PAPILLOMAVIRUS] Onset: 01-13-2022 Episodic Nonmalignant breast conditions (2 sources) Hypertrophy of breast; Translations: [Ptosis of breast] Onset: 03-07-2024 Episodic Other screening for suspected conditions (not mental disorders or infectious disease) (4 sources) Encounter for screening for malignant neoplasm of cervix; Translations: [ENC SCREENING MALIG NEOPLASM CERV] Onset: 01-11-2022 Episodic Other skin disorders (4 sources) Generalized hyperhidrosis; Translations: [GENERALIZED HYPERHIDROSIS] Onset: 01-12-2022 Episodic Residual codes; unclassified (4 sources) Localized edema; Translations: [LOCALIZED EDEMA] Onset: 07-28-2021 Episodic Spondylosis; intervertebral disc disorders; other back problems (20 sources) Radiculopathy, lumbar region; Translations: [Cervicalgia] Onset: 08-17-2021 Episodic Unclassified (1 source) LOW BACK PAIN, UNSPECIFIED; Translations: [LOW BACK PAIN, UNSPECIFIED] Onset: 06-15-2022 Results Test Name Value Interpretation Reference Range Facility Plastic Surgery Visit Report on 02-15-2024 Plastic Surgery Visit Report [facility] Plastic Reconstructive Surgery [address], [address] [place] [address] OFFICE VISIT Date of Service: 02/15/24 MR#: [id number] Acct: [id number] Name: LIANA KHAN Rep #: [id number] : 1980 Provider: Dr. Liliane white MD Age/Sex: 43/F Location: [facility] Status: Signed Intake Vital Signs 02/15/24 15:04 Height 5 ft 7 in Weight: 208 lb 3 oz BMI 32.5 BP 108/68 Blood Pressure Location Lt brachial Position Sitting Respiration 18 Pulse 95 Temp 98.3 F Temp Source Oral Pulse Oximetry (%) 97 Oxygen Delivery Method room air Intake Visit Reasons: Breast Reduction Chief Complaint: breast reduction consult Is patient in pain?: Yes (back) Allergies No Known Allergies Allergy (Verified 02/15/24 15:05) Medications ???Medication ???Instructions ???Recorded ???Confirmed ???Type ibuprofen 800 mg tablet 800 mg PO BID 02/15/24 02/15/24 History multivitamin (Daily Multi-Vitamin 1 tab PO DAILY 02/15/24 02/15/24 History tablet) omeprazole 10 mg capsule,delayed 10 mg PO DAILY 02/15/24 02/15/24 History release Nurse's Note: pt here for breast reduction consult [facility] Medical History (Updated 02/15/24 @ 15:[address] Liliane Taylor MD) History of back problems Surgical History (Updated 02/15/24 @ 14:34 by Giselle Alex) History of cholecystectomy History of section History of appendectomy History of hysterectomy Family History (Updated 02/15/24 @ 15:04 by Giselle Alex) Grandmother Alcohol abuse Anxiety Asthma Arthritis Cancer ovarian Diabetes Uterine cancer Hypertension High cholesterol Grandfather Alcohol abuse Asthma Heart disease High cholesterol CVA (cerebral vascular accident) Mother Anxiety Alcohol abuse Cancer cervical and ovarian,uterine Brother Alcohol abuse Social History (Updated 02/15/24 @ 14:58 by Giselle Alex) Smoking Status: Never smoker alcohol intake: current details: social substance use type: does not use additional social history: pt denies vaping, denies marijuana, does not use aspirin Uses edibles daily for lower back pain uses 800mg ibuprofen daily HPI Breast Reduction Details: Liana is a 43-year-old female who presents for consideration of breast reduction. She states she is otherwise in good health. She has a long history of neck and back pain. She has pursued physical therapy and senior caregiver for her back in the past. She is currently being seen by pain management for this. She has had 3 children and breast-fed her last 1 for approximately 1 year. She has never had a mammogram. There is a history of breast cancer in a paternal grandmother and a paternal aunt. She takes marijuana edibles occasionally for back pain. She denies use of nicotine. Dr. Soliman is her PCP. ROS General General: Yes good health; No fever(s) or weight loss HENMT HENMT: No rhinitis, sore throat/mouth sore, nasal congestion, contacts or glaucoma Endo Endocrine: No thyroid disease, polydipsia, heat intolerance, cold intolerance, hepatitis or excessive urine Skin Skin: No Bleeding, bruising, changing moles or suspicious lesion Musc Musculoskeletal: Yes back pain; No joint pain, joint stiffness, muscle weakness, osteoarthritis or Muscle aches/ myalgia Neuro Neurological: No headache(s), No lightheadedness and No numbness Psych Psychiatric: No depression, claustrophobia or anxiety Resp Respiratory: No spitting up, shortness of breath, sleep apnea, asthma, emphysema, TB, Cough or Smoker Gastro Gastrointestinal: No diarrhea, constipation, blood in stool, nausea, vomiting or abdominal bloating Gary Hematologic: No anemia, No bleeding and No abnormal bleeding Genitourinary: No urinary frequency, blood in urine or incontinence Exam Details Patient with evidence of solar damaged skin. She has bilateral breast hypertrophy and grade 3 ptosis. There is no palpable masses or axillary adenopathy. She has pierced nipples. Her areolas are widened. She has hypertrophy of the trapezius muscle. She would be a good candidate for breast reduction surgery based on her size and history of chronic neck and back pain. I reviewed breast reduction surgery with her including the incisions and scars as well as the limitations after surgery. She is aware that she would have smaller areolas following the surgery. I reviewed the recovery time as well as a surgical preparation including medical clearance and preop appointments. The expected pre-, intra-, postoperative course is reviewed. She will need to be off all marijuana edibles for 3 months. I will then see her back for evaluation. Following this, we will pursue obtaining preauthorization for breast reduction surgery after h (more content not included)... Normal [facility] XR LSPINE W_OBLS AND FLEX_EX Ton 06-16-2022 [...] JJ NIEVES Date: 2022-06-16 07:28 Normal [facility] XR CSPINE OBL FLEX_EXTon XR CSPINE OBL [...] by: CIARA ROQUE Date: 2022-03-31 15:[address] [facility] PREG HCG QUALon 01-26-2022 , QUAL Negative Normal NEGATIVE [facility] Comment on above: Performed By: #### P REG #### [facility] [address] [place] [address] Dr. Linnette Ventura Covid-19 PCR (CVDTBH)on 12-31 SARS-CoV-2 (COVID-19) RNA AYAZ+probe Ql (Unsp spec) Not detected Normal NOT DETECTED [facility] Comment on above: Result Comment: When [...] for this test is supported by the Special Agent Secret Service of Health and Human Service's declaration that [...] longer be used). Performed By: #### C VDTBH #### [facility] [address] [place] [address] Dr. Linnette Ventura PAP ACOG PANEL 2: 30 to 65on 01-15-[address] [facility] Comment on above: Result Comment: Perf ormed at: WB Performed By: #### A 1C #### [facility] [address] [place] [address] Dr. Linnette Ventura Age Gdln ACOG Testing -[address] [facility] Comment on above: Performed By: #### A 1C #### [facility] [address] [address] [address] Linnette Ventura DIAGNOSIS: Comment Normal [facility] Comment on above: Result Comment: NEGA TIVE FOR INTRAEPITHELIAL LESION OR MALIGNANCY. Performed at: WB Performed By: #### A 1C #### [facility] [address] [place] [address] Dr. Linnette Ventura HPV Aptima Negative Normal Negative [facility] Comment on above: Result Comment: This nucleic acid amplification test detects fourteen high-risk HPV types (16,18,31,33,35,39,45,51,52,56,58,59,66,68) without differentiation. Performed at: =G Performed By: #### A 1C #### [facility] [address] [place] [address] Dr. Linnette Ventura Methodology: Comment Normal [facility] Comment on above: Result Comment: This liquid based ThinPrep(R) pap test was screened with the use of an image guided system. Performed at: WB Performed By: #### A 1C #### [facility] [address] [place] [address] Dr. Linnette Ventura Note: Comment Normal [facility] Comment on above: Result Comment: The [...] WB Performed By: #### A 1C #### [facility] [address] [place] [address] Dr. Linnette Ventura Performed by: Comment Normal [facility] Comment on above: Result Comment: Anna Pollard, Golf Course [employer] (ASCP) Performed at: WB Performed By: #### A 1C #### [facility] [address] [place] [address] Dr. Linnette Ventura Specimen adequacy: Comment Normal [facility] Comment on above: Result Comment: Sati sfactory for evaluation. Endocervical and/or squamous metaplastic cells (endocervical component) are present. Performed at: WB Performed By: #### A 1C #### [facility] [address] [place] [address] Dr. Linnette Ventura CBC AUTO DIFFon 01-12-2022 BASO # 0.0 103/ul Normal 0.0-0.1 [facility] Comment on above: Performed By: #### C BC #### [facility] [address] [place] [address] Dr. Linnette Ventura Basophils/100 WBC (Bld) 0.5 % Normal 0.2-2.0 [facility] Comment on above: Performed By: #### C BC #### [facility] [address] [place] [address] Dr. Linnette Ventura EO # 0.1 103/ul Normal 0.0-0.7 [facility] Comment on above: Performed By: #### C BC #### [facility] [address] [place] [address] Dr. Linnette Ventura Eosinophils/100 WBC (Bld) 1.8 % Normal 0.9-7.0 [facility] Comment on above: Performed By: #### C BC #### [facility] [address] [place] [address] Dr. Linnette Ventura Erythrocyte distribution width (RBC) [Ratio] 12.4 % Normal 11.0-15.0 [facility] Comment on above: Performed By: #### C BC #### [facility] [address] [place] [address] Dr. Linnette Ventura Hematocrit (Bld) [Volume fraction] 39.3 % Normal 36.0-48.0 [facility] Comment on above: Performed By: #### C BC #### [facility] [address] [place] [address] Dr. Linnette Ventura Hemoglobin (Bld) [Mass/Vol] 13.2 g/dL Normal 12.0-16.0 [facility] Comment on above: Performed By: #### C BC #### [facility] [address] [place] [address] Dr. Linnette Ventura IG # 0.02 10e3/ul Normal 0.00-0.03 [facility] Comment on above: Performed By: #### C BC #### [facility] [address] [place] [address] Dr. Linnette Ventura IG % 0.4 % Normal 0.0-0.5 [facility] Comment on above: Performed By: #### C BC #### [facility] [address] [place] [address] Dr. Linnette Ventura LYMPH # 1.4 103/ul Normal 1.2-3.8 [facility] Comment on above: Performed By: #### C BC #### [facility] [address] [place] [address] Dr. Linnette Ventura Lymphocytes/100 WBC (Bld) 24.7 % Normal 20.5-60.0 [facility] Comment on above: Performed By: #### C BC #### [facility] [address] [place] [address] Dr. Linnette Ventura MANUAL DIFF REQ NO Normal [facility] Comment on above: Performed By: #### C BC #### [facility] [address] [place] [address] Dr. Linnette Ventura MCH (RBC) [Entitic mass] 31.8 pg Normal 26.7-34.0 [facility] Comment on above: Performed By: #### C BC #### [facility] [address] [place] [address] Dr. Linnette Ventura MCHC (RBC) [Mass/Vol] 33.6 g/dL Normal 29.9-35.2 [facility] Comment on above: Performed By: #### C BC #### [facility] [address] [place] [address] Dr. Linnette Ventura MCV (RBC) [Entitic vol] 94.7 fL Normal 81.0-99.0 [facility] Comment on above: Performed By: #### C BC #### [facility] [address] [place] [address] Dr. Linnette Ventura MONO # 0.7 103/ul Normal 0.3-0.8 [facility] Comment on above: Performed By: #### C BC #### [facility] [address] [place] [address] Dr. Linnette Ventura Monocytes/100 WBC (Bld) 12.2 % Critically high 1.7-12.0 [facility] Comment on above: Performed By: #### C BC #### [facility] [address] [place] [address] Dr. Linnette Ventura NEUT # 3.3 103/ul Normal 1.4-6.5 [facility] Comment on above: Performed By: #### C BC #### [facility] [address] [address] [address] Linnette Ventura Neutrophils/100 WBC (Bld) 60.4 % Normal 43.0-75.0 [facility] Comment on above: Performed By: #### C BC #### [facility] [address] [address] [address] Linnette Ventura Platelet mean volume (Bld) [Entitic vol] 8.9 fL Critically low 9.5-13.5 [facility] Comment on above: Performed By: #### C BC #### [facility] [address] [address] [address] Linnette Ventura PLT 310 103/ul Normal 150-450 [facility] Comment on above: Performed By: #### C BC #### [facility] [address] [place] [address] Dr. Linnette Ventura RBC 4.15 106/ul Critically low 4.20-5.40 [facility] Comment on above: Performed By: #### C BC #### [facility] [address] [address] [address] Linnette Ventura WBC 5.5 103/ul Normal 4.0-11.0 [facility] Comment on above: Performed By: #### C BC #### [facility] [address] [address] [address] Linnette Ventura GLYCOHEMOGLOBIN A1Con 2021 ADA RECOMMENDATION SEE BELOW Normal [facility] Comment on above: Result Comment: ADA RECOMMENDED LIMIT 4.0 - 6.0 ADA THERAPEUTIC TARGET < 7.0 ACTION SUGGESTED > 7.0 Performed By: #### A 1C #### [facility] [address] [address] [address] Linnette Ventura Glucose [Mass/Vol] 100 mg/dL Normal [facility] Comment on above: Performed By: #### A 1C #### [facility] [address] [place] [address] Dr. Linnette Ventura HbA1c (Bld) [Mass fraction] 5.1 % Normal 4.5-6.2 [facility] Comment on above: Performed By: #### A 1C #### [facility] [address] [address] [address] Linnette Ventura TSHon 01-12-2022 TSH 0.789 uIU/mL Normal 0.358-3.740 [facility] Comment on above: Performed By: #### T SH #### [facility] [address] [address] [address] Linnette Ventura PREG HCG QUALon 12-22-2021 , QUAL Negative Normal NEGATIVE [facility] Comment on above: Performed By: #### P REG #### [facility] [address] [address] [address] Linnette Ventura Covid-19 [facility]on [facility]-29 SARS-CoV-2 (COVID-19) RNA AYAZ+probe Ql (Unsp spec) Not detected Normal NOT DETECTED [facility] Comment on above: Result Comment: This test is not yet approved or cleared by the [place] FDA. When there are no FDA-approved or cleared tests available, and other criteria are met, FDA can make tests available under an emergency access mechanism called an Emergency Use Authorization (EUA). The EUA for this test is supported by the Special Agent Secret Service of Health and Human Service's (HHS's) declaration [...] SARS-CoV-2. Performed By: #### P REG #### [facility] [address] [place] [address] Dr. Linnette Ventura PREG HCG QUALon 12-01-2021 , QUAL Negative Normal NEGATIVE [facility] Comment on above: Performed By: #### P REG #### [facility] [address] [address] [address] Linnette Ventura Covid-19 PCR (CVDTB)on 10-31 SARS-CoV-2 (COVID-19) RNA AYAZ+probe Ql (Unsp spec) Not detected Normal NOT DETECTED [facility] Comment on above: Result Comment: This test is not yet approved or cleared by the [place] FDA. When there are no FDA-approved or cleared tests available, and other criteria are met, FDA can make tests available under an emergency access mechanism called an Emergency Use Authorization (EUA). The EUA for this test is supported by the Special Agent Secret Service of Health and Human Service's (HHS's) declaration [...] SARS-CoV-2. Performed By: #### A 1C #### [facility] [address] [place] [address] Dr. Linnette Ventura PREG HCG QUALon 09-01-2021 , QUAL Negative Normal NEGATIVE [facility] Comment on above: Performed By: #### P REG #### [facility] [address] [place] [address] Dr. Linnette Ventura Covid-19 PCR (CVDTB)on 08-02 SARS-CoV-2 (COVID-19) RNA AYAZ+probe Ql (Unsp spec) Not detected Normal NOT DETECTED [facility] Comment on above: Result Comment: This test is not yet approved or cleared by the [place] FDA. When there are no FDA-approved or cleared tests available, and other criteria are met, FDA can make tests available under an emergency access mechanism called an Emergency Use Authorization (EUA). The EUA for this test is supported by the [place] of Health and Human Service's (HHS's) declaration [...] consistent with SARS-CoV-2. Performed By: #### C [facility] #### [facility] [address] [address] [address] Linnette Ventura US CARL DOP LEG [...] JJ CARRILLO Date: 2021-07-28 17:24 Normal [facility] PREG HCG QUALon 07-21-2021 , QUAL Negative Normal NEGATIVE [facility] Comment on above: Performed By: #### P REG #### [facility] [address] [address] [address] Linnette Ventura Encounters Encounter Date Encounter Type Care Provider Facility Start: 06-12-2024 ambulatory [facility] Start: 02-15-2024 End: 02-15-2024 ambulatory [facility] Start: 02-08-2024 End: 02-08-2024 ambulatory YADIRA KALLIE Not Available Start: 01-05-2024 End: 01-05-2024 ambulatory YADIRA KALLIE Not Available Start: 11-30-2023 End: 11-30-2023 ambulatory YADIRA KALLIE Not Available Start: 10-05-2023 End: 10-05-2023 ambulatory ANNA BRADEN Not Available Start: 09-05-2023 End: 09-05-2023 ambulatory ANNA BRADEN Not Available Start: 08-08-2023 End: 08-08-2023 ambulatory YADIRA KALLIE Not Available Start: 07-01-[address] KAREL [...] prepro cedural laboratory examination DR KAREL CORRAL [facility] Start: 01-26-2022 End: 01-26-[address] [...] CORRAL Facility:[facility] Payers Date Payer Category Payer Self-pay 2023 Unknown [id number] 2023 Unknown [id number] 1980 Unknown [id number] 2.16.84 [id number] 1980 Unknown [id number] 2.16.84 0.1.922426.3.579.2.593 1982 Unknown [id number] 2.16.84 0.1.350536.3.579.2.593 1982 Unknown [id number] 2.16.84 0.1.979678.3.579.2.593 1982 Unknown [id number] 2.16.84 0.1.432302.3.579.2.593 1982 Unknown [id number] 2.16.84 0.1.057693.3.579.2.593 1982 Unknown [id number] 2.16.84 0.1.869286.3.579.2.593 1982 Unknown [id number] 2.16.84 0.1.401331.3.579.2.593 1982 Unknown [id number] 2.16.84 0.1.501936.3.579.2.593 1982 Unknown [id number] 2.16.84 0.1.242106.3.579.2.593 1982 Unknown [id number] 2.16.84 0.1.123778.3.579.2.593 1982 Unknown [id number] 2.16.84 0.1.149039.3.579.2.593 1982 Unknown [id number] 2.16.84 0.1.918254.3.579.2.593 1982 Unknown [id number] 2.16.84 0.1.509088.3.579.2.593 1982 Unknown [id number] 2.16.84 0.1.955715.3.579.2.593 1982 Unknown [id number] 2.16.84 0.1.052465.3.579.2.593 1982 Unknown [id number] 2.16.84 0.1.442143.3.579.2.593 1982 Unknown [id number] 2.16.84 0.1.978978.3.579.2.593 1982 Unknown [id number] 2.16.84 0.1.954373.3.579.2.593 1982 Unknown [id number] 2.16.84 0.1.153877.3.579.2.593 1982 Unknown [id number] 2.16.84 0.1.310955.3.579.2.593 1982 Unknown [id number] 2.16.84 0.1.752930.3.579.2.593 1982 Unknown [id number] 2.16.84 0.1.088936.3.579.2.593 1982 Unknown [id number] 2.16.84 0.1.031899.3.579.2.1259 1980 Unknown [id number] 2.16.84 0.1.103871.3.579.2.1259 1980 Unknown [id number] 2.16.84 0.1.047777.3.579.2.1259 1982 Unknown [id number] 2.16.84 0.1.147731.3.579.2.1259 1982 Unknown [id number] 2.16.84 0.1.766119.3.579.2.1259 1982 Unknown [id number] 2.16.84 0.1.111216.3.579.2.1259 1959 Unknown [id number] Unknown [id number] 2.16.8 40.1.005210.3.579.2.462 Unknown [id number] 2.16.8 40.1.454479.3.579.2.462 Consultation note 04-20-2022 Note Date & Type [...] understands and would like to proceed. CC: Wayne Soliman M.D. [facility] Consultation note 03-11-2022 Note Date & Type [...] that x-ray at her follow up. [facility] Consultation note 02-25-2022 Note Date & Type [...] each site, total of two injections. [facility] Consultation note 01-06-2022 Note Date & Type [...] care and would like to move forward. [facility] Signed and Approved by: ANASTACIA SANCHEZ . 01/14/2022 16:04:00 [facility] Consultation note 12-09-2021 Note Date & Type [...] She will be followed up post procedure. [facility] Signed and Approved by: ANASTACIA SANCHEZ . 12/10/2021 12:52:00 [facility] Consultation note 10-08-2021 Note Date & Type [...] by: ANASTACIA SANCHEZ . 10/15/2021 12:38:00 [facility] Consultation note 08-06-2021 Note Date & Type Note Facility 08-06-2021 Note The [place], [place] NAME: LIANA JONES DATE OF : MEDICAL REC#: [id number] FAMILY LAW ATTORNEY: 1421 JAREN GUAJARDO ADMIT DATE: 08/06/2021 14:56:00 PUBLIC HEALTH ASSISTANT DATE: 08/10/2021 10:00 DICTATING PHYSICIAN: ANASTACIA SANCHEZ [...] Anastacia Sanchez CNP on 08/16/2021 11:41 PM [facility] Signed and Approved by: ANASTACIA SANCHEZ . 08/16/2021 23:41:00 [facility] Summary Purpose Family History No Family History Records FoundNo Family History Records FoundNo Family History Records Found Advance Directives No Advanced Directives Records FoundNo Advanced Directives Records FoundNo Advanced Directives Records Found Additional Source Comments INFORMATION SOURCE (unrecogn ized section and content) DATE CREATED AUTHOR 07/07/2022 [facility] DATE CREATED AUTHOR AUTHOR'S ORGANIZ ATION 02/15/2024 [facility] EPIC DATE CREATED AUTHOR AUTHOR'S ORGANIZ ATION 06/12/2024 [facility] FOR RECORDS PERTAINING TO PATIENTS WHO ARE [...] BE BASED ON THE PRIMARY CLINICAL RECORDS. [facility]. provides no warranty or guarantee of the accuracy or completeness of information in this document.
[2024-06-26 10:47] LABS: C Reactive Protein 2.59 mg/dL (<=0.50); Uric Acid 4.4 mg/dL (2.6-6.0)
[2024-06-27 06:10] LABS: Antistreptolysin O Ab 66.7 IU/mL (0.0-200.0); Rheumatoid Factor (RF) <10.0 IU/mL (<14.0)
[2024-06-27 16:10] LABS: Antinuclear Antibodies, IFA Positive (.)
== END 2024-06-26 08:44 | disposition home or self-care (01) ==
LOC: LAB 08:44
PROVIDERS: PCP Family Medicine; Visit Provider Family Medicine
DX: M19.90 Unspecified osteoarthritis, unspecified site (principal); R53.83 Other fatigue
CPT/HCPCS: 36415; 84550; 85025; 86038; 86060; 86140; 86431

== ENCOUNTER 2024-06-27 14:34 | Outpatient (OUT) | payer BC, SELFPAY ==
--- NOTE | 2024-06-27 14:41 | XR_ITS ---
The [address] [address] Patient Name: LIANA KHAN MRN: [id number] date: 1980 Sex: F Assigned Patient Location: [facility] Current Patient Location: Accession/Order Number: [id number] Exam Date: 06/27/2024 14:50 Report Date: 07/01/2024 12:00 At the request of: WAYNE THOMPSON Procedure: XR foot RT 2V PROCEDURE: XR foot RT 2V HISTORY: Right Foot Pain ; first metatarsal phalangeal joint pain COMPARISON: None. FINDINGS: BONES:No fracture, acute abnormality, or significant arthropathy. SOFT TISSUES:1.2 cm lobular density/calcification within soft tissues plantar medial to the first metatarsal neck. EFFUSION:None visible. OTHER: Negative. XR/XR foot RT 2V IMPRESSION: 1. No acute bone abnormality or significant degenerative joint disease. 2. Irregular soft tissue density, possibly calcification within plantar medial soft tissues of uncertain etiology; bone lesion versus sequela of remote injury. Consider MRI of the right foot. Electronically authenticated by: CIARA ROQUE Date: 07/01/2024 12:00
--- OUTSIDE RECORDS SUMMARY | 2024-06-27 14:51 | XMS_ITS | CCD ---
Author Organization [facility] Care Team Providers Care Rn Delivery Name Role Phone DONNA, DR BLACK Primary [...] Unavailable ANASTACIA SANCHEZ Consulting Unavailable SHAYNA, DR KARLE Christy Attending Unavailable SHAYNA, DR KAREL Christy [...] Report on 02-15-2024 Plastic Surgery Visit Report [facility] Plastic Reconstructive Surgery [address], [address] [place] [address] OFFICE VISIT Date of Service: 02/15/24 MR#: [id number] Acct: [id number] Name: LIANA KHAN Rep #: [id number] : 1980 Provider: Dr. Liliane white MD Age/Sex: 43/F Location: [facility] Status: Signed Intake Vital Signs 02/15/24 15:04 [...] Note: pt here for breast reduction consult [facility] Medical History (Updated 02/15/24 @ 15:36 by [...] pain. She has pursued physical therapy and home care coordinator for her back in the past. She [...] after h (more content not included)... Normal [facility] XR LSPINE W_OBLS AND FLEX_EX Ton 06-16-2022 [...] JJ NIEVES Date: 2022-06-16 07:28 Normal [facility] XR CSPINE OBL FLEX_EXTon XR CSPINE [...] by: CIARA ROQUE Date: 2022-03-31 15:57 Normal [facility] PREG HCG QUALon 01-26-2022 , QUAL Negative Normal NEGATIVE [facility] Comment on above: Performed By: #### P REG #### [facility] [address] [place] [address] Dr. Linnette Ventura Covid-19 PCR (CVDTBH)on 12-31 SARS-CoV-2 (COVID-19) RNA AYAZ+probe Ql (Unsp spec) Not detected Normal NOT DETECTED [facility] Comment on above: Result Comment: When [...] for this test is supported by the Juvenile Correctional Officer of Health and Human Service's declaration that [...] used). Performed By: #### C VDTBH #### [facility] [address] [place] [address] Dr. Linnette Ventura PAP ACOG PANEL 2: 30 to 65on 01-15-2022 . . Normal [facility] Comment on above: Result Comment: Perf ormed at: WB Performed By: #### A 1C #### [facility] [address] [place] [address] Dr. Linnette Ventura Age Gdln ACOG Testing -67 Normal [facility] Comment on above: Performed By: #### A 1C #### [facility] [address] [address] [address] Linnette Ventura DIAGNOSIS: Comment Normal [facility] Comment on above: Result Comment: NEGA TIVE FOR INTRAEPITHELIAL LESION OR MALIGNANCY. Performed at: WB Performed By: #### A 1C #### [facility] [address] [place] [address] Dr. Linnette Ventura HPV Aptima Negative Normal Negative [facility] Comment on above: Result Comment: This nucleic acid amplification test detects fourteen high-risk HPV types (16,18,31,33,35,39,45,51,52,56,58,59,66,68) without differentiation. Performed at: =G Performed By: #### A 1C #### [facility] [address] [place] [address] Dr. Linnette Ventura Methodology: Comment Normal [facility] Comment on above: Result Comment: This liquid based ThinPrep(R) pap test was screened with the use of an image guided system. Performed at: WB Performed By: #### A 1C #### [facility] [address] [place] [address] Dr. Linnette Ventura Note: Comment Normal [facility] Comment on above: Result Comment: The [...] WB Performed By: #### A 1C #### [facility] [address] [place] [address] Dr. Linnette Ventura Performed by: Comment Normal [facility] Comment on above: Result Comment: Anna Pollard, Lean Manufacturing Coordinator (ASCP) Performed at: WB Performed By: #### A 1C #### [facility] [address] [place] [address] Dr. Linnette Ventura Specimen adequacy: Comment Normal [facility] Comment on above: Result Comment: Sati sfactory for evaluation. Endocervical and/or squamous metaplastic cells (endocervical component) are present. Performed at: WB Performed By: #### A 1C #### [facility] [address] [place] [address] Dr. Linnette Ventura CBC AUTO DIFFon 01-12-2022 BASO # 0.0 103/ul Normal 0.0-0.1 [facility] Comment on above: Performed By: #### C BC #### [facility] [address] [place] [address] Dr. Linnette Ventura Basophils/100 WBC (Bld) 0.5 % Normal 0.2-2.0 [facility] Comment on above: Performed By: #### C BC #### [facility] [address] [place] [address] Dr. Linnette Ventura EO # 0.1 103/ul Normal 0.0-0.7 [facility] Comment on above: Performed By: #### C BC #### [facility] [address] [place] [address] Dr. Linnette Ventura Eosinophils/100 WBC (Bld) 1.8 % Normal 0.9-7.0 [facility] Comment on above: Performed By: #### C BC #### [facility] [address] [place] [address] Dr. Linnette Ventura Erythrocyte distribution width (RBC) [Ratio] 12.4 % Normal 11.0-15.0 [facility] Comment on above: Performed By: #### C BC #### [facility] [address] [place] [address] Dr. Linnette Ventura Hematocrit (Bld) [Volume fraction] 39.3 % Normal 36.0-48.0 [facility] Comment on above: Performed By: #### C BC #### [facility] [address] [place] [address] Dr. Linnette Ventura Hemoglobin (Bld) [Mass/Vol] 13.2 g/dL Normal 12.0-16.0 [facility] Comment on above: Performed By: #### C BC #### [facility] [address] [place] [address] Dr. Linnette Ventura IG # 0.02 10e3/ul Normal 0.00-0.03 [facility] Comment on above: Performed By: #### C BC #### [facility] [address] [place] [address] Dr. Linnette Ventura IG % 0.4 % Normal 0.0-0.5 [facility] Comment on above: Performed By: #### C BC #### [facility] [address] [place] [address] Dr. Linnette Ventura LYMPH # 1.4 103/ul Normal 1.2-3.8 [facility] Comment on above: Performed By: #### C BC #### [facility] [address] [place] [address] Dr. Linnette Ventura Lymphocytes/100 WBC (Bld) 24.7 % Normal 20.5-60.0 [facility] Comment on above: Performed By: #### C BC #### [facility] [address] [place] [address] Dr. Linnette Ventura MANUAL DIFF REQ NO Normal [facility] Comment on above: Performed By: #### C BC #### [facility] [address] [place] [address] Dr. Linnette Ventura MCH (RBC) [Entitic mass] 31.8 pg Normal 26.7-34.0 [facility] Comment on above: Performed By: #### C BC #### [facility] [address] [place] [address] Dr. Linnette Ventura MCHC (RBC) [Mass/Vol] 33.6 g/dL Normal 29.9-35.2 [facility] Comment on above: Performed By: #### C BC #### [facility] [address] [place] [address] Dr. Linnette Ventura MCV (RBC) [Entitic vol] 94.7 fL Normal 81.0-99.0 [facility] Comment on above: Performed By: #### C BC #### [facility] [address] [place] [address] Dr. Linnette Ventura MONO # 0.7 103/ul Normal 0.3-0.8 [facility] Comment on above: Performed By: #### C BC #### [facility] [address] [place] [address] Dr. Linnette Ventura Monocytes/100 WBC (Bld) 12.2 % Critically high 1.7-12.0 [facility] Comment on above: Performed By: #### C BC #### [facility] [address] [place] [address] Dr. Linnette Ventura NEUT # 3.3 103/ul Normal 1.4-6.5 [facility] Comment on above: Performed By: #### C BC #### [facility] [address] [address] [address] Linnette Ventura Neutrophils/100 WBC (Bld) 60.4 % Normal 43.0-75.0 [facility] Comment on above: Performed By: #### C BC #### [facility] [address] [address] [address] Linnette Ventura Platelet mean volume (Bld) [Entitic vol] 8.9 fL Critically low 9.5-13.5 [facility] Comment on above: Performed By: #### C BC #### [facility] [address] [address] [address] Linnette Ventura PLT 310 103/ul Normal 150-450 [facility] Comment on above: Performed By: #### C BC #### [facility] [address] [place] [address] Dr. Linnette Ventura RBC 4.15 106/ul Critically low 4.20-5.40 [facility] Comment on above: Performed By: #### C BC #### [facility] [address] [address] [address] Linnette Ventura WBC 5.5 103/ul Normal 4.0-11.0 [facility] Comment on above: Performed By: #### C BC #### [facility] [address] [address] [address] Linnette Ventura GLYCOHEMOGLOBIN A1Con 2021 ADA RECOMMENDATION SEE BELOW Normal [facility] Comment on above: Result Comment: ADA RECOMMENDED LIMIT 4.0 - 6.0 ADA THERAPEUTIC TARGET < 7.0 ACTION SUGGESTED > 7.0 Performed By: #### A 1C #### [facility] [address] [address] [address] Linnette Ventura Glucose [Mass/Vol] 100 mg/dL Normal [facility] Comment on above: Performed By: #### A 1C #### [facility] [address] [place] [address] Dr. Linnette Ventura HbA1c (Bld) [Mass fraction] 5.1 % Normal 4.5-6.2 [facility] Comment on above: Performed By: #### A 1C #### [facility] [address] [address] [address] Linnette Ventura TSHon 01-12-2022 TSH 0.789 uIU/mL Normal 0.358-3.740 [facility] Comment on above: Performed By: #### T SH #### [facility] [address] [address] [address] Linnette Venutra PREG HCG QUALon 12-22-2021 , QUAL Negative Normal NEGATIVE [facility] Comment on above: Performed By: #### P REG #### [facility] [address] [address] [address] Linnette Ventura [facility]on 11-29 SARS-CoV-2 (COVID-19) RNA AYAZ+probe Ql (Unsp spec) Not detected Normal NOT DETECTED [facility] Comment on above: Result Comment: This test is not yet approved or cleared by the [place] FDA. When there are no FDA-approved or cleared tests available, and other criteria are met, FDA can make tests available under an emergency access mechanism called an Emergency Use Authorization (EUA). The EUA for this test is supported by the Juvenile Correctional Officer of Health and Human Service's (HHS's) declaration [...] SARS-CoV-2. Performed By: #### P REG #### [facility] [address] [place] [address] Dr. Linnette Ventura PREG HCG QUALon 12-01-2021 , QUAL Negative Normal NEGATIVE [facility] Comment on above: Performed By: #### P REG #### [facility] [address] [address] [address] Linnette Ventura Covid-19 PCR (CVDTB)on 10-31 SARS-CoV-2 (COVID-19) RNA AYAZ+probe Ql (Unsp spec) Not detected Normal NOT DETECTED [facility] Comment on above: Result Comment: This test is not yet approved or cleared by the [place] FDA. When there are no FDA-approved or cleared tests available, and other criteria are met, FDA can make tests available under an emergency access mechanism called an Emergency Use Authorization (EUA). The EUA for this test is supported by the Juvenile Correctional Officer of Health and Human Service's (HHS's) declaration [...] SARS-CoV-2. Performed By: #### A 1C #### [facility] [address] [place] [address] Dr. Linnette Ventura PREG HCG QUALon 09-01-2021 , QUAL Negative Normal NEGATIVE [facility] Comment on above: Performed By: #### P REG #### [facility] [address] [place] [address] Dr. Linnette Ventura Covid-19 PCR (CVDTB)on 08-02 SARS-CoV-2 (COVID-19) RNA AYAZ+probe Ql (Unsp spec) Not detected Normal NOT DETECTED [facility] Comment on above: Result Comment: This test is not yet approved or cleared by the [place] FDA. When there are no FDA-approved or cleared tests available, and other criteria are met, FDA can make tests available under an emergency access mechanism called an Emergency Use Authorization (EUA). The EUA for this test is supported by the [place] of Health and Human Service's (HHS's) declaration [...] consistent with SARS-CoV-2. Performed By: #### [facility] #### [facility] [address] [address] [address] Linnette Ventura US CARL DOP LEG [...] JJ CARRILLO Date: 2021-07-28 17:24 Normal [facility] PREG HCG QUALon 07-21-2021 , QUAL Negative Normal NEGATIVE [facility] Comment on above: Performed By: #### P REG #### [facility] [address] [address] [address] Linnette Ventura Encounters Encounter Date Encounter Type Care Provider Facility Start: 06-12-2024 ambulatory [facility] Facility :[facility] Start: 02-15-2024 End: 02-15-2024 ambulatory [facility] Start: 02-08-2024 End: [...] prepro cedural laboratory examination DR KAREL CORRAL [facility] Start: 01-26-2022 End: 01-26-[address] [...] Date Payer Category Payer Self-pay 2023 Unknown [id number] 2023 Unknown [id number] 1980 Unknown [id number] 2.16.84 0.1.550096.3.579.2.593 1980 Unknown [id number] 2.16.84 0.1.612677.3.579.2.593 1980 Unknown [id number] 2.16.84 0.1.504064.3.579.2.593 1982 Unknown [id number] 2.16.84 0.1.551790.3.579.2.593 1982 Unknown [id number] 2.16.84 0.1.255251.3.579.2.593 1982 Unknown [id number] 2.16.84 0.1.557967.3.579.2.593 1982 Unknown [id number] 2.16.84 0.1.184587.3.579.2.593 1982 Unknown [id number] 2.16.84 0.1.640386.3.579.2.593 1982 Unknown [id number] 2.16.84 0.1.094733.3.579.2.593 1982 Unknown [id number] 2.16.84 0.1.230107.3.579.2.593 1982 Unknown [id number] 2.16.84 0.1.161611.3.579.2.593 1982 Unknown [id number] 2.16.84 0.1.321912.3.579.2.593 1982 Unknown [id number] 2.16.84 0.1.362292.3.579.2.593 1982 Unknown [id number] 2.16.84 0.1.515304.3.579.2.593 1982 Unknown [id number] 2.16.84 0.1.461400.3.579.2.593 1982 Unknown [id number] 2.16.84 0.1.391683.3.579.2.593 1982 Unknown [id number] 2.16.84 0.1.056057.3.579.2.593 1982 Unknown [id number] 2.16.84 0.1.123414.3.579.2.593 1982 Unknown [id number] 2.16.84 0.1.568607.3.579.2.593 1982 Unknown [id number] 2.16.84 0.1.109596.3.579.2.593 1982 Unknown [id number] 2.16.84 0.1.820084.3.579.2.593 1982 Unknown [id number] 2.16.84 0.1.682717.3.579.2.593 1982 Unknown [id number] 2.16.84 0.1.819477.3.579.2.593 1982 Unknown [id number] 2.16.84 0.1.745396.3.579.2.1259 1982 Unknown [id number] 2.16.84 0.1.555770.3.579.2.1259 1982 Unknown [id number] 2.16.84 0.1.478307.3.579.2.1259 1982 Unknown [id number] 2.16.84 0.1.434700.3.579.2.1259 1982 Unknown [id number] 2.16.84 0.1.442909.3.579.2.1259 1982 Unknown [id number] 2.16.84 0.1.975507.3.579.2.1259 1959 Unknown [id number] Unknown [id number] 2.16.8 40.1.347169.3.579.2.462 Unknown [id number] 2.16.8 40.1.980863.3.579.2.462 Consultation note 04-20-2022 Note Date & Type [...] to proceed. CC: Wayne Soliman M.D. [facility] Consultation note 03-11-2022 Note Date & [...] that x-ray at her follow up. [facility] Consultation note 02-25-2022 Note Date & [...] each site, total of two injections. [facility] Consultation note 01-06-2022 Note Date & [...] care and would like to move forward. [facility] Signed and Approved by: ANASTACIA SANCHEZ . 01/14/2022 16:04:00 [facility] Consultation note 12-09-2021 Note Date & [...] She will be followed up post procedure. [facility] Signed and Approved by: ANASTACIA SANCHEZ . 12/10/2021 12:52:00 [facility] Consultation note 10-08-2021 Note Date & [...] by: ANASTACIA SANCHEZ . 10/15/2021 12:38:00 [facility] Consultation note 08-06-2021 Note Date & Type Note Facility 08-06-2021 Note The [place], [place] NAME: LIANA JONES DATE OF : MEDICAL REC#: [id number] RIDE OPERATOR: 1421 JAREN GUAJARDO ADMIT DATE: 08/06/2021 14:56:00 IMPORT/EXPORT ADMINISTRATOR DATE: 08/10/2021 10:00 DICTATING PHYSICIAN: ANASTACIA SANCHEZ [...] Anastacia Sanchez CNP on 08/16/2021 11:41 PM [facility] Signed and Approved by: ANASTACIA SANCHEZ . 08/16/2021 23:41:00 [facility] Summary Purpose Family History No Family History Records FoundNo Family History Records FoundNo Family History Records Found Advance Directives No Advanced Directives Records FoundNo Advanced Directives Records FoundNo Advanced Directives Records Found Additional Source Comments INFORMATION SOURCE (unrecogn ized section and content) DATE CREATED AUTHOR 07/07/2022 [facility] DATE CREATED AUTHOR AUTHOR'S ORGANIZ ATION 02/15/2024 [facility] EPIC DATE CREATED AUTHOR AUTHOR'S ORGANIZ ATION 06/12/2024 [facility] FOR RECORDS PERTAINING TO PATIENTS WHO [...] BE BASED ON THE PRIMARY CLINICAL RECORDS. [facility] [employer] [facility]. provides no warranty or guarantee of the accuracy or completeness of information in this document.
== END 2024-06-27 14:35 | disposition home or self-care (01) ==
LOC: RAD 14:36
PROVIDERS: PCP Family Medicine; Visit Provider Family Medicine
DX: M79.671 Pain in right foot (principal)
CPT/HCPCS: 73620

== ENCOUNTER 2024-07-30 15:11 | Outpatient (OUT) | payer BC, SELFPAY ==
--- NOTE | 2024-07-30 15:14 | MR_ITS ---
The [address] [address] Patient Name: LIANA KHAN MRN: [id number] date: 1980 Sex: F Assigned Patient Location: MRI Current Patient Location: Accession/Order Number: [id number] Exam Date: 07/30/2024 15:30 Report Date: 08/02/2024 12:21 At the request of: WAYNE THOMPSON Procedure: MR foot RT wo con EXAM: MR foot RT wo con REASON FOR EXAM: Soft Tissue Injury, Foot Pain. TECHNIQUE: Multiplanar, multisequence imaging of the right foot was performed without contrast COMPARISON: Radiographs 06/27/2024. FINDINGS: The bone marrow signal is without acute fracture or osteonecrosis. The visualized midfoot appears congruent. The partially imaged Lisfranc ligament is intact. There may be mild hallux valgus deformity of the first MTP joint. No bony erosive or resorptive changes are evident. A discrete plantar plate injury is not evident. Within the subcutaneous tissues along the plantar medial aspect of the first metatarsal neck, there is soft tissue T1 and T2 hypointense structure with some mild surrounding edema measuring 9 mm in maximum dimension. This likely correlates with radiographic finding. This appears to extend into close proximity to the flexor pollicis longus tendon. No definite aggressive features identified. This could reflect changes of fat necrosis and/or changes from prior tendon injury/hematoma. Again no aggressive features are present. There is mild first through third intermetatarsal web space bursitis. A discrete neuroma is not evident. No acute flexor or extensor tendon injury is evident. MR/MR foot RT wo con IMPRESSION: 1. Possible remote injury involving the flexor pollicis longus tendon at the level of the metatarsal neck with associated calcification is seen on recent radiograph. No acute tear is not evident. 2. Mild first through third intermetatarsal web space bursitis without neuroma. 3. No acute osseous abnormality. 4. Intact Lisfranc ligament Electronically authenticated by: PENELOPE WILLAMS Date: 08/02/2024 12:21
== END 2024-07-30 15:12 | disposition home or self-care (01) ==
LOC: MRI 15:11
PROVIDERS: PCP Family Medicine; Visit Provider Family Medicine
DX: T14.90XA Injury, unspecified, initial encounter (principal); M79.671 Pain in right foot; M77.51 Other enthesopathy of right foot and ankle
CPT/HCPCS: 73718

== ENCOUNTER 2024-12-25 19:21 | Outpatient (REF) | payer BC, SELFPAY ==
--- OUTSIDE RECORDS SUMMARY | 2024-09-13 09:00 | XMS_ITS ---
Author Organization The [facility] in [place] Address [address] [place] [address] Care Team Providers Care Locomotive Inspector Name Role Phone Jose Cruz Soliman Primary Care Provider Allergies No Known Allergies REASON FOR VISIT right bottom of foot pain, cracked open- wants to know if can try a fungal med orally, Anxiety- wants to get on something for this- has never tried any meds in the past, Taking pantoprazole once daily- said that not working all the time Medications Medication SIG (Take, Route, Frequency, Duration) Notes Start Date End Date Status Mirtazapine 30 MG 1 tablet at bedtime Orally Once a day for 30 day(s) 09/13/2024 Active Ketoconazole 2 % 1 application Quality Tester ally bid for 14 days 09/13/2024 Active Terbinafine HCl 250 MG 1 tablet Orally O nce a day for 30 days 09/13/2024 Active Ibuprofen 800 MG 1 tablet with food o r milk as needed Orally every 8 hrs PRN 06/25/2024 Active Pantoprazole Sodium 40 MG take 1 tablet by mouth once daily for 30 Active Social History Tobacco Use: Social History Observation Description Date Details (start date - stop date) Never Smoker NA - NA Tobacco Use/Smoking Question Answer Notes Patient is a nonsmoker Problems Problem Type SNOMED Code ICD Code Onset Dates Problem Status W/U Status Risk Notes Problem Gastroesophageal reflux disease (338123517) GERD (gastroeso phageal reflux disease) (K21.9) Active confirmed Vital Signs Weight 210.4 lbs 09/13/2024 Height 67 in 09/13/2024 Blood pressure systolic 122 mm Hg 09/13/19 25 Blood pressure diastolic 82 mm Hg 025 BMI 32.95 kg/m2 09/13/2024 Encounters Encounter Location Date Provider Diagnosis [facility] [address] [place] [address] 09/13/2024 Jose Cruz Soliman Tinea pedis B35.3 an d GERD (gastroesophageal reflux disease) K21.9 Assessments Encounter Date Diagnosis (ICD Code) Assessment Notes Treatment Notes Treatment Clinical Notes Section Notes 09/13/2024 Tinea pedis (ICD-10 - B35.3) 09/13/2024 GERD (gastroesophage al reflux disease) (ICD-10 - K21.9) Plan Of Treatment Medication Medication Name Sig Start Date Stop Date Notes Mirtazapine 30 MG 1 tablet at bedtime Orally Once a day for 30 day(s) 09/13/2024 Ketoconazole 2 % 1 application Quality Tester ally bid for 14 days 09/13/2024 Terbinafine HCl 250 MG 1 tablet Orally O nce a day for 30 days 09/13/2024 Progress Notes * Joi LANTIGUA LDOB:[birth year] (44 yo F)Acc No.[id number]:09/13/2024 Progress Note Patient: Joi GREENE Fara Provider: Daniel Soliman ([facility])MD :1980 A ge:44 Y S ex:Female Date:09/13/2024 Address:[address] [place], [place] [id number] Check In:12:58 PM ESTCheck O ut:01:30 PM EST Subjective: * Chief Complaints: * R ight bottom of foot pain, cracked open- wants to know if can try a fungal med orallyAnxiety- wants to get on something for this- has never tried any meds in the pastTaking pantoprazole once daily- said that not working all the time * HPI: D epression Screening: PHQ-2 (2015 Edition) L ittle interest or pleasure in doing things??Not at all F eeling down, depressed, or hopeless? S everal days T otal Score 1 cracking in foot tried multple steroids - not helpoing. * ROS: E ENT: hearing changes d enies. v isual changes d enies.?non-healing mouth sores d enies. s wollen glands or neck lumps d enies. h oarseness d enies. s ore throat d enies. d ifficulty swallowing d enies. n ose bleeds d enies. n raimundo congestion d enies. e ar ache d enies. e ar discharge?denies. r inging in ears d enies. l ight sensitivity d enies. e ye pain d enies. b lurring d enies. e ye irritation d enies. d ouble vision d enies.?vision loss d enies. G eneral/Constitutional: Sweats: D enies. F atigue d enies. S leep problems d enies. A norexia d enies. M alaise d enies. W eight loss d enies.?Fatigue or Weakness d enies. F ever or Chills d enies. C ardiovascular: Shortness of Breath w/lying flat d enies. L ightheadedness/dizziness d enies. C hest tightness/ heavy pressure d enies. S welling of legs, ankles, or feet d enies. W aking up with shortness of breath d enies. C hest pain denies. P alpitations d enies. W eight gain d enies. R espiratory: Chronic or frequent cough d enies. C oughing up blood?denies. D ifficulty breathing d enies. P roductive cough d enies. S noring?denies. S hortness of breath that awakens from sleep (PND) d enies. C hest pain d enies. S putum production d enies. W heezing d enies. M usculoskeletal: Joint pain d enies. J oint Fluid d enies. B ack pain d enies. K nee pain d enies. N mera pain d enies. J oint Stiffness d enies. M uscle cramps d enies. W eakness of muscles d enies. A rthritis d enies. M uscle aches d enies. P ain in shoulder(s) d enies. S wollen joints d enies. * Active Problem List M19.90 Arthritis Modified On:04/21/2023U Status:confirmed E66.3 Overweight Modified On:04/21/2023U Status:confirmed B07.9 Wart Modified On:04/21/2023 Status:confirmed L30.9 Eczema Modified On:04/21/2023U Status:confirmed M54.30 Sciatic leg pain Modified On:04/21/2023 Status:confirmed K52.9 Gastroenteritis Modified On:04/21/2023 Status:confirmed G43.909 Migraines Modified On:04/21/2023 Status:confirmed M51.26 Herniated lumbar int ervertebral disc Modified On:04/21/2023 Status:confirmed R53.83 Fatigue Modified On:04/21/2023 Status:confirmed L70.0 Cystic acne Modified On:04/21/2023U Status:confirmed N60.19 Fibrocystic breast Modified On:04/21/2023 Status:confirmed N93.8 Dysfunctional uterin e bleeding Modified On:04/21/2023U Status:confirmed N73.9 Pelvic inflammatory disease Modified On:04/21/2023U Status:confirmed L30.8 Eczema craquele Modified On:04/26/2024U Status:confirmed K21.9 GERD (gastroesophage al reflux disease) Modified On:09/13/2024U Status:confirmed * Medical History: * Surgical History: C HOLECYSTECTOMY 2006CESAREAN DELIVERY x3 LITHOTRIPSY Laproscopy 3partial hysterectomy 12/22 * Hospitalization/Major Diagno stic Procedure: D enies Past Hospitalization * Family History: F ather: alive. M other: alive, Cancer- woman parts. B rother(s): alive, schizophrenia, bipolar, mental health issues. S on(s): alive, Cancer- childhood. D aughter(s): alive.?1 brother(s) . 1 son(s) , 2 daughter(s) . . * Social History: T obacco Use: T obacco Use/Smoking P atient is a n onsmoker * Medications: T akingIbuprofen 800 MG Tablet 1 tablet with food or milk as needed Orally every 8 hrs , Notes to Pharmacist: PRNPantoprazole Sodium 40 MG Tablet Delayed Release take 1 tablet by mouth once daily Taking Ibuprofen 800 MG Tablet 1 tablet with food or milk as needed Orally every 8 hrs , Notes to Pharmacist: PRNTaking Pantoprazole Sodium 40 MG Tablet Delayed Release take 1 tablet by mouth once daily DiscontinuedClobetasol Propionate 0.05 % Gel 1 application Externally Twice a day Fluocinonide 0.05 % Gel 1 application Externally Twice a day Ibuprofen 800 MG Tablet 1 tablet Orally qid Phentermine HCl 37.5 MG Tablet take 1 tablet by mouth every morning Oral Triamcinolone Acetonide 0.1 % Cream 1 application Externally Two times a Week Medication List reviewed and reconciled with the patientDiscontinued Clobetasol Propionate 0.05 % Gel 1 application Externally Twice a day Discontinued Fluocinonide 0.05 % Gel 1 application Externally Twice a day Discontinued Ibuprofen 800 MG Tablet 1 tablet Orally qid Discontinued Phentermine HCl 37.5 MG Tablet take 1 tablet by mouth every morning Oral Discontinued Triamcinolone Acetonide 0.1 % Cream 1 application Externally Two times a Week Medication List reviewed and reconciled with the patient * Allergies: N .K.D.A.no[Allergies Verified] Objective: * Vitals: W t:210.4lbs, Ht: 67 in, BP:122/82mm Hg, BMI:32.95Index, Ht-cm: 170.18 cm, Wt-k.44 kg. * Examination: P hysical Exam: GENERAL: w ell developed, well nourished, in no acute distress. HEAD: n ormocephalic/atraumatic. EYES: p upils equal, round and reactive to light, conjunctivae and sclerae normal. EARS: n o deformity or lesion of external ear, canals and TM appear normal bilaterally, TM's intact, not inflamed with normal light reflex, hearing grossly normal to conversational speech. NOSE: n o deformity, discharge, inflammation, or lesions.? MOUTH: m ucous membranes moist, normal oropharynx and posterior pharynx without lesions or exudates, tongue normal, dentition normal. NECK: n mera supple, no masses or palpable cervical nodes, trachea midline, thyroid without nodules, masses, tenderness, or enlargement. CHEST: n o chest wall deformity, no chest wall tenderness.? LUNGS: n ormal respiratory effort and clear to auscultation, no wheezes, rales, or rhonchi, good air exchange. CARDIO: r egular rate and rhythm, normal S1 and S2, nor murmur, rub, or gallop. PULSES: n ormal capillary refill. ABDOMEN: s oft, non-distended, non-tender, no masses. MUSCULOSKELETAL: n o deformity or scoliosis noted, normal range of motion, joints normal, no erythema, edema, effusion, or ecchymosis. EXTREMITY: n o clubbing, cyanosis, edema, or deformity with normal ROM in both upper and lower bilateral extremities. NEUROLOGIC: g rossly normal. SKIN: n o rashes, ulcerations, or suspicious lesions. LYMPH NODES: n o cervical adenopathy, nodes normal. MENTAL STATUS: a lert and oriented x3, normal mood and affect. Assessment: * Assessment: 1. T inea pedis - B35.3 (Primary) 2 . G ERD (gastroesophageal reflux disease) - K21.9 Plan: * Treatment: * Procedure Codes: * Preventive Medicine: Screenings/Counseling: B LA ACTION PLAN Above Normal BMI Follow-up D ietary management education, guidance, and counseling * * Sign off status: Completed Visit Status: C HK (Check Out) true * Provider: Daniel Soliman ([facility])MD Date: 0 09/13/2024 Generated for Aaron copeland/Ashley/eTransmitting on: 0 12/25/2024 07:25 PM EDT History and Physical Notes * HPI (History of Present Illness) Category Sub-Category Detail Notes Category Not es Depression Screening PHQ-2 (2015 Edition) Little interest or pleasure in doing things?: Not at all cracking in foot tried multple steroids - not helpoing Feeling down, depressed, or hopeless?: S everal days Total Score: 1 Examination Category Sub-Category Detail Notes Category Not es Physical Exam GENERAL: well developed, well nourished, in no acute distress HEAD: normocephalic/atraum atic EYES: pupils equal, round and reactive to light, conjunctivae and sclerae normal EARS: no deformity or lesi on of external ear, canals and TM appear normal bilaterally, TM's intact, not inflamed with normal light reflex, hearing grossly normal to conversational speech NOSE: no deformity, discha rge, inflammation, or lesions MOUTH: mucous membranes lisa st, normal oropharynx and posterior pharynx without lesions or exudates, tongue normal, dentition normal NECK: neck supple, no mass es or palpable cervical nodes, trachea midline, thyroid without nodules, masses, tenderness, or enlargement CHEST: no chest wall deform ity, no chest wall tenderness LUNGS: normal respiratory e ffort and clear to auscultation, no wheezes, rales, or rhonchi, good air exchange CARDIO: regular rate and rhy thm, normal S1 and S2, nor murmur, rub, or gallop PULSES: normal capillary ref ill ABDOMEN: soft, non-distended, non-tender, no masses RECTAL: MUSCULOSKELETAL: no deformity or scol iosis noted, normal range of motion, joints normal, no erythema, edema, effusion, or ecchymosis EXTREMITY: no clubbing, cyanosi s, edema, or deformity with normal ROM in both upper and lower bilateral extremities NEUROLOGIC: grossly normal SKIN: no rashes, ulceratio ns, or suspicious lesions LYMPH NODES: no cervical adenopat hy, nodes normal MENTAL STATUS: alert and oriented x 3, normal mood and affect
--- OUTSIDE RECORDS SUMMARY | 2024-10-01 09:38 | XMS_ITS ---
Author Organization The [facility] in [place] Address [address] [place] [address] Care Team Providers Care Supervisor Shearing Name Role Phone Jose Cruz Soliman Primary Care Provider REASON FOR VISIT update anxiety Medications Medication SIG (Take, Route, Fr equency, Duration) Notes Start Date End Date Status Mirtazapine 30 MG 1 1/2 tablet at bedt hang Orally Once a day for 30 days 09/13/2024 Active Encounters Encounter Location Date Provider Diagnosis [facility] [address] [place] [address] 10/01/2024 Jose Cruz Soliman Tinea pedis B35. 3 Assessments Encounter Date Diagnosis (ICD Code) Assessment Notes Treatment Notes Treatment Clinical Notes Section Notes 10/01/2024 Tinea pedis (ICD-10 - B35.3) Plan Of Treatment Medication Medication Name Sig Start Date Stop Date Notes Mirtazapine 30 MG 1 1/2 tablet at bedt hang Orally Once a day for 30 days 09/13/2024 Progress Notes * Joi LANTIGUA LDOB:[birth year] (44 yo F)Acc No.[id number]:10/01/2024 Patient: Khris Joi KAPOOR :1980 A ge:44 Y S ex:Female Address:[address] [place] [address] , [place], [address] * Refills Refill Mirtazapine Tablet, 30 MG, Orally, 45, 1 1/2 tablet at bedtime, Once a day, 30 days, Refills=11 * true * Date: Generated for Aaron copeland/Ashley/Rosy on: 0 12/25/2024 07:26 PM EDT
--- OUTSIDE RECORDS SUMMARY | 2024-10-15 11:48 | XMS_ITS ---
Author Organization The [facility] in [place] Address [address] [place] [address] Care Team Providers Care Drawing Tender Name Role Phone Jose Cruz Soliman Primary Care Provider [phone] REASON FOR VISIT anxiety Medications Medication SIG (Take, Route, Frequency, Duration) Notes Start Date End Date Status Abilify 2 MG 1 tablet Orally ever y morning for 30 days 10/15/2024 Active Encounters Encounter Location Date Provider Diagnosis [facility] [address] [place] [address] 10/15/2024 Jose Cruz Soliman Plan Of Treatment Medication Medication Name Sig Start Date Stop Date Notes Abilify 2 MG 1 tablet Orally every morning for 30 days Progress Notes * Joi LANTIGUA LDOB:[birth year] (44 yo F)Acc No.[id number]:10/15/2024 Patient: Khris Joi KAPOOR :1980 A ge:44 Y S ex:Female Address:[address] [place] [address] , [place], [address] * Refills Start Abilify Tablet, 2 MG, Orally, 30, 1 tablet, every morning, 30 days, Refills=11 * true * Date: Generated for Printi ng/Faxing/eTransmitting on: 0 12/25/2024 10:16 AM EDT
--- OUTSIDE RECORDS SUMMARY | 2024-12-25 10:30 | XMS_ITS | Encounter Summary ---
Author Organization [facility] Address [address] [place] [address] Care Team Providers Care Certified Medical Aide Name Role Phone Aidan Soliman MD Primary Care Provider [phone] Reason for Visit * Reason Comments Well Women Visit Encounter Details Date Type Department Care Team (Late Contact Info) Description 12/25/2024 10:30 AM EDT Office Visit [facility] OB [address] [facility] [place] [address] John Arreguin DO [address] [facility] [address] [place], [facility]11 Well woman exam with routine gynecological exam; Breast cancer screening by mammogram; Dyspareunia in female; H/O: hysterectomy; Encounter for weight management Social History Tobacco Use Types Packs/Day Years Used Date Smoking Tobacco: Former Cigarettes Smokeless Tobacco: Never Comments No Sex and Gender Information Value Date Recorded Sex Assigned at Not on file Legal Sex Female 11:47 PM EDT Gender Identity Not on file Sexual Orientation Not on file documented as of this encounter Last Filed Vital Signs Vital Sign Reading Time Taken Comments Blood Pressure 118/76 12/25/2024 10:49 AM EDT Pulse - - Temperature - - Respiratory Rate - - Oxygen Saturation - - Inhaled Oxygen Concentration - - Weight 98.9 kg (218 lb 1.9 oz) 12/25/2024 10:49 AM EDT Height - - Body Mass Index 34.16 03/14/2024 4:25 PM EDT documented in this encounter Progress Notes * Pearl Escobedo LPN - 12/25/2024 10:30 AM EDT Reason for Appointment: Patient ID: Joi Lantigua is a 44 y.o. female who presents for Well Women Visit Patient presents today for Annual Exam. MEDICATIONS Current Outpatient Medications Medication Instructions estradiol (ESTRACE) 0.5 mg, Oral, Daily, Take 1 tablet by mouth for 30 days ibuprofen 800 mg, Oral, 4 times daily metFORMIN XR (GLUCOPHAGE-XR) 500 mg, Oral, Daily with evening meal, Do not crush, chew, or split. pantoprazole (PROTONIX) 40 mg, Oral, Daily phentermine (ADIPEX-P) 37.5 mg, Oral, Daily before breakfast phentermine (ADIPEX-P) 37.5 mg, Oral, Daily before breakfast phentermine (ADIPEX-P) 37.5 mg, Oral, Daily before breakfast phentermine (ADIPEX-P) 37.5 mg, Oral, Daily before breakfast ALLERGIES No Known Allergies PROBLEMS Active Ambulatory Problems Diagnosis Date Noted Menorrhagia with regular cycle 08/08/2023 Pelvic pain in female 08/08/2023 Dysmenorrhea 08/08/2023 Dyspareunia in female 08/08/2023 Acute postoperative pain 01/05/2024 Postop check 01/05/2024 Resolved Ambulatory Problems Diagnosis Date Noted No Resolved Ambulatory Problems Past Medical History: Diagnosis Date Abdominal cramping Abnormal uterine bleeding (AUB) Abnormal weight Insulin resistance Menorrhagia Night sweat Obesity (BMI 30-39.9) HISTORY PAST MEDICAL HISTORY SOCIAL HISTORY Past Medical History: Diagnosis Date Abdominal cramping Abnormal uterine bleeding (AUB) Abnormal weight Insulin resistance Menorrhagia Night sweat Obesity (BMI 30-39.9) Social History Tobacco Use Smoking status: Former Types: Cigarettes Smokeless tobacco: Never Substance Use Topics Alcohol use: Not on file Drug use: Never FAMILY HISTORY No family history on file. SURGICAL HISTORY Past Surgical History: Procedure Laterality Date APPENDECTOMY 11/11/2010 SECTION, LOW TRANSVERSE 06/09/2007 SECTION, LOW TRANSVERSE 06/08/2004 SECTION, LOW TRANSVERSE 08/24/2000 CHOLECYSTECTOMY 11/11/2010 CHOLECYSTECTOMY 01/19/2010 TOTAL ABDOMINAL HYSTERECTOMY 12/29/2023 BREANA, bilateral salpingectomy w/ cystoscopy REVIEW OF SYSTEMS Review of Systems: Review of Systems Constitutional: Negative. HENT: Negative. Eyes: Negative. Respiratory: Negative. Cardiovascular: Negative. Gastrointestinal: Negative. Genitourinary: Negative. Musculoskeletal: Negative. Skin: Negative. Neurological: Negative. All other systems reviewed and are negative. Hematological: Negative. Endocrine: Negative. Allergic/Immunologic: Negative. OBJECTIVE Objective: Physical Exam Constitutional: Appearance: Normal appearance. She is well-developed. Genitourinary: Vulva normal. Vaginal cuff intact. Cervix is absent. Uterus is absent. Cardiovascular: Rate and Rhythm: Normal rate and regular rhythm. Abdominal: General: Bowel sounds are normal. There is no distension. Palpations: Abdomen is soft. Tenderness: There is no abdominal tenderness. There is no guarding or rebound. Musculoskeletal: General: No swelling. Normal range of motion. Right lower leg: No edema. Left lower leg: No edema. Neurological: Mental Status: She is alert and oriented to person, place, and time. Skin: General: Skin is warm and dry. Psychiatric: Mood and Affect: Mood normal. Behavior: Behavior normal. Vitals and nursing note reviewed. Exam conducted with a concrete buildings assembler present. Vitals: Estimated body mass index is 34.16 kg/m?? as calculated from the following: Height as of 03/14/24: 5' 7 . Weight as of this encounter: 218 lb 1.9 oz. BP: 118/76 No LMP recorded (lmp unknown). Patient has had a hysterectomy. ASSESSMENT & PLAN ICD-10-CM 1. Well woman exam with routine gynecological exam Z01.419 THIN PREP TIS PAP AND HR HPV DNA 2. Breast cancer screening by mammogram Z12.31 Bilateral screening mammogram Bilateral screening mammogram Annual: Patient presents today for an annual exam. Patient states she is doing well and has complaints of dyspareunia, rx for estrace cream faxed to pharmacy. Pt to stay on cream for two weeks, and increasedoral estrogen to 1 mg. Will revisit dyspareunia. Pt to have ct scan obtained with scar tissue. Pap was obtained without difficulty and patient given mammogram order to have scheduled/obtained. Patient presents today for initial Adipex prescription. The importance of keeping a food journal, proper nutrition/diet, and exercise regimen while taking Adipex has been discussed. Patient verbalized understanding and signed consents to initiate (Adipex) medication therapy. Patient was given a printed pre scription signed by provider to take to their local pharmacy. Follow Up: Patient is to return to the office in 1 month for further evaluation to assess patient progress. Weight and blood pressure will need to be captured in order for patient to receive 2nd prescription. Orders Placed This Encounter Procedures Bilateral screening mammogram Follow Up: Patient is to return in one year for annual unless needed otherwise. Documented by Pearl Escobedo LPN on behalf of: John Arreguin DO documented in this encounter Plan of Treatment Upcoming Encounters Date Type Department Care Team (Late st Contact Info) Description 01/21/2025 4:00 PM EDT Office Visit [facility] [address] [facility] [place] [phone] Anna Quarles PA [address] [facility] [place] [address] 01/02/2026 10:00 AM EDT Office Visit [facility] [address] [facility] [place] [place] [address] John Arreguin DO [address] [facility] [place] [address] Scheduled Orders Name Type Priority Associated Diagnoses Orde r Schedule Bilateral screening mammogram Imaging Routine Breast cancer screening by mammogram Expected: 12/25/2024 (Approximate), Expires: 02/24/2026 THIN PREP TIS PAP AND HR HPV DNA Pathology and Cytology Routine Well woman exam with routine gynecological exam Ordered: 12/25/2024 documented as of this encounter Visit Diagnoses Diagnosis Well woman exam with routine gynecological exam Routine gynecological examination Breast cancer screening by mammogram Dyspareunia in female H/O: hysterectomy Acquired absence of both cervix and uterus Encounter for weight management documented in this encounter Care Teams Certified Medical Aide Relationship Specialty Start Date End Date Aidan Soliman MD [address] [facility] [place] [address] PCP - General Family Medicine 01/06/23 documented as of this encounter
--- OUTSIDE RECORDS SUMMARY | 2024-12-25 19:25 | XMS_ITS | Encounter Summary ---
Author Organization [facility] Address [address] [facility] [place] [address] Care Team Providers Care Form Setter/Driver Name Role Phone Aidan Soliman MD Primary Care Provider [phone] Encounter Details Date Type Department Care Team (Late st Contact Info) Description 02/22/2024 Abstract [facility] OB [address] [place] [address] Tawny Ruelas LPN [address] [place] [id number] Social History Tobacco Use Types Packs/Day Years Used Date Smoking Tobacco: Former Cigarettes Smokeless Tobacco: Never Comments No Sex and Gender Information Value Date Recorded Sex Assigned at Not on file Legal Sex Female 11:47 PM EDT Gender Identity Not on file Sexual Orientation Not on file documented as of this encounter Plan of Treatment Upcoming Encounters Date Type Department Care Team (Late st Contact Info) Description 01/21/2025 4:00 PM EDT Office Visit [facility] OB [address] [place] [address] Anna Quarles PA [address] [facility] [address] [place], [facility]11 01/02/2026 10:00 AM EDT Office Visit [facility] OB [address] [place] [address] John Arreguin DO [address] [facility] [address] [place], [place] [id number] documented as of this encounter Visit Diagnoses Not on filedocumented in this encounter Care Teams Form Setter/Driver Relationship Specialty Start Date End Date Aidan Soliman MD [address] [place] [address] PCP - General Family Medicine 01/06/23 documented as of this encounter
--- OUTSIDE RECORDS SUMMARY | 2024-12-25 19:26 | XMS_ITS | Clinical Summary ---
Author Organization [facility] Address [address] [facility] [place] [address] Care Team Providers Care Director Prospect Name Role Phone Aidan Soliman MD Primary Care Provider [phone] Allergies No known active allergies Medications ibuprofen 800 MG tablet Take 800 mg by mouth in the morning and 800 mg at noon and 800 mg in the evening and 800 mg before bedtime. 4 Active pantoprazole (ProtoNix) 40 MG EC tablet Take 40 mg by mouth in the morning. Active phentermine (Adipex-P) 37.5 MG tabletIndication s:Encounter for weight management Take 1 tablet (37.5 mg) by mouth in the morning. Take before meals. 30 tablet 4 Active phentermine (Adipex-P) 37.5 MG tabletIndication s:Encounter for weight management Take 1 tablet (37.5 mg) by mouth in the morning. Take before meals. 30 tablet 4 Active phentermine (Adipex-P) 37.5 MG tabletIndication s:Abnormal weight gain,Encounter for weight management Take 1 tablet (37.5 mg) by mouth in the morning. Take before meals. 30 tablet 4 Active phentermine (Adipex-P) 37.5 MG tabletIndication s:Encounter for weight management Take 1 tablet (37.5 mg) by mouth in the morning. Take before meals. 90 tablet 4 Active metFORMIN XR (Glucophage-XR) 500 MG 24 hr tabletIndication s:H/O: hysterectomy,Enc ounter for weight management Take 1 tablet (500 mg) by mouth in the evening. Take with meals Do not crush, chew, or split. 30 tablet 11 5 06/07/20 25 Active estradiol (Estrace) 0.1 MG/GM vaginal creamIndications :Dyspareunia in female 2g vaginal daily for 2 weeks, then 2 times weekly following initial 2 weeks 42.5 g 5 Active estradiol (Estrace) 1 MG tabletIndication s:H/O: hysterectomy Take 1 tablet (1 mg) by mouth Daily Take 1 tablet by mouth for 30 days 30 tablet 11 5 01/25/20 25 Active phentermine (Adipex-P) 37.5 MG tabletIndication s:Encounter for weight management Take 1 tablet (37.5 mg) by mouth in the morning. Take before meals. 30 tablet 5 01/25/20 25 Active estradiol (Estrace) 0.5 MG tabletIndication s:H/O: hysterectomy Take 1 tablet (0.5 mg) by mouth Daily Take 1 tablet by mouth for 30 days 30 tablet 3 5 12/26/19 25 Discontin ued(Reord er) Active Problems Problem Noted Date Diagnosed Date Acute postoperative pain 01/05/2024 Postop check 01/05/2024 Menorrhagia with regular cycle 08/08/2023 Pelvic pain in female 08/08/2023 Dysmenorrhea 08/08/2023 Dyspareunia in female 08/08/2023 Encounters Date Type Department Care Team Description 12/25/2024 10:30 AM EDT Office [facility] [address] [place] [address] John Arreguin, Well woman exam with routine gynecological exam; Breast cancer screening by mammogram; Dyspareunia in female; H/O: hysterectomy; Encounter for weight management 12/25/2024 Bamboo flowsheet [facility] [place] [address] [place] [address] John Arreguin DO 12/06/2024 9:50 AM EDT Office Visit [facility] [place] [address] [place] [address] John Arreguin DO Pain at surgical incision; H/O: hysterectomy; Encounter for weight management 12/06/2024 Bamboo flowsheet [facility] [address] [place] [phone] oJhn Arreguin DO from Last 3 Months Social History Tobacco Use Types Packs/Day Years Used Date Smoking Tobacco: Former Cigarettes Smokeless Tobacco: Never Tobacco Cessation:Counseling Given: Not Answered Comments No Sex and Gender Information Value Date Recorded Sex Assigned at Not on file Legal Sex Female 11:47 PM EDT Gender Identity Not on file Sexual Orientation Not on file Last Filed Vital Signs Vital Sign Reading Time Taken Comments Blood Pressure 118/76 12/25/2024 10:49 AM EDT Pulse - - Temperature - - Respiratory Rate - - Oxygen Saturation - - Inhaled Oxygen Concentration - - Weight 98.9 kg (218 lb 1.9 oz) 12/25/2024 10:49 AM EDT Height 170.2 cm (5' 7 ) 03/14/2024 4:25 PM EDT Body Mass Index 34.16 03/14/2024 4:25 PM EDT Plan of Treatment Upcoming Encounters Date Type Department Care Team (Late st Contact Info) Description 01/21/2025 4:00 PM EDT Office Visit [facility] OB [address] [place] [address] [place] [address] Anna Quarles PA [address] [facility] [address] [place], [place] [id number] 01/02/2026 10:00 AM EDT Office Visit [facility] OB [address] [place], [place] [address] [place] [address] John Arreguin DO [address] [facility] [address] [place], [place] [phone] Insurance BS Care Teams Director Prospect Relationship Specialty Start Date End Date Aidan Soliman MD [address] [place] [address] PCP - General Family Medicine 01/06/23
--- OUTSIDE RECORDS SUMMARY | 2024-12-25 19:26 | XMS_ITS | Referral Summary ---
Author Organization [facility] Address [address] [place] [address] Care Team Providers Care Leadlighter Name Role Phone Unavailable Primary Care Provider Unavailabl e Allergies No known active allergies Medications Medication Sig Dispensed Refills Start Date End Date Status HYDROcodone-acetamin ophen ([place]) 5-325 mg tablet take 1 tablet by mouth every 6 hours if needed for pain 01/05/2024 Active oxyCODONE-acetaminop hen (Percocet) 5-325 mg tablet Take 1 tablet by mouth every 6 (six) hours. 12/30/2023 Active phentermine (Adipex-P) 37.5 mg tablet TAKE 1 TABLET BY MOUTH IN THE MORNING BEFORE MEALS Active Laxative, bisacodyl, 10 mg suppository unwrap and insert 1 suppository rectally once daily 01/03/2024 Active pantoprazole (ProtoNix) 40 mg EC tablet Take 40 mg by mouth in the morning. Active fluocinonide (Lidex) 0.05 % gel APPLY TO THE AFFECTED AREA(S) TWICE DAILY 04/30/2024 Active Active Problems Problem Noted Date Diagnosed Date Positive NISH (antinuclear antibody) 08/07/2024 Arthralgia of right foot 08/07/2024 Acute postoperative pain 01/05/2024 Postop check 01/05/2024 Dysmenorrhea 08/08/2023 Dyspareunia in female 08/08/2023 Menorrhagia with regular cycle 08/08/2023 Pelvic pain in female 08/08/2023 Social History Tobacco Use Types Packs/Day Years Used Date Smoking Tobacco: Never Smokeless Tobacco: Never Tobacco Cessation:Counseling Given: Not Answered Alcohol Use Standard Drinks/Week Comments Not Currently 0 (1 standard drink = 0.6 oz pur e alcohol) PHQ-2 Answer Date Recorded Patient Health Questionnaire-2 Score 0 08/07/2024 Sex and Gender Information Value Date Recorded Sex Assigned at Not on file Gender Identity Not on file Sexual Orientation Not on file Last Filed Vital Signs Vital Sign Reading Time Taken Comments Blood Pressure 107/74 08/07/2024 3:55 PM EST Pulse 85 08/07/2024 3:55 PM EST Temperature - - Respiratory Rate - - Oxygen Saturation 94% 08/07/2024 3:55 PM EST Inhaled Oxygen Concentration - - Weight 92.5 kg (204 lb) 08/07/2024 3:55 PM EST Height 170.2 cm (5' 7 ) 08/07/2024 3:55 PM EST Body Mass Index 31.95 08/07/2024 3:55 PM EST Plan of Treatment Upcoming Encounters Date Type Department Care Team (Late st Contact Info) Description 03/13/2025 3:45 PM EDT Follow-Up [facility] Rheumatology [address] [place] [address] Pro Morales MD [address] [facility] [place] [address]
--- OUTSIDE RECORDS SUMMARY | 2024-12-25 19:26 | XMS_ITS | Encounter Summary ---
Author Organization [facility] Address [address] [facility] [place] [address] Care Team Providers Care General Merchandise Salesperson Name Role Phone Aidan Soliman MD Primary Care Provider [phone] Encounter Details Date Type Department Care Team (Late st Contact Info) Description 01/03/2024 Abstract [facility] OB [address] [facility] [place] [address] Karla Dominguez LPN [address] [facility] [address] [id number] Social History Tobacco Use Types Packs/Day Years [...] 01/21/2025 4:00 PM EDT Office Visit [facility] OB [address] [facility] [place] [address] Anna Quarles PA [address] [facility] [address] [place], [facility]11 01/02/2026 10:00 AM EDT Office Visit [facility] OB [address] [facility] [place] [address] John Arreguin DO [address] [facility] [place] [address] documented as of this encounter Visit Diagnoses Not on filedocumented in this encounter Care Teams General Merchandise Salesperson Relationship Specialty Start Date End Date Aidan Soliman MD [address] [place] [phone] PCP - General Family Medicine 01/06/23 documented as of this encounter
--- OUTSIDE RECORDS SUMMARY | 2024-12-25 19:26 | XMS_ITS | Clinical Summary ---
Author Organization [facility] Address [address] [place] [address] Care Team Providers Care Line Fisher Name Role Phone Unavailable Primary Care Provider Unavailabl e Allergies No known active allergies Medications Medication Sig Dispensed Refills Start Date End Date Status HYDROcodone-acetamin ophen ([place]) 5-325 mg tablet take 1 tablet by [...] Info) Description 03/13/2025 3:45 PM EDT Follow-Up [facility] Rheumatology [address] [place] [address] Pro Morales MD [address] [facility] [place] [address] Health Maintenance Due Date Last Done Comments Varicella Vaccines (1 of 2 - 13+ 2-dose series) 1995 Hepatitis B Vaccines (1 of 3 - 19+ 3-dose series) 2001 Pap Smear 2003 Adult Tetanus 2004 Cervical Cancer Screening 2012 HPV/Cotest 2012 Mammogram 2022 COVID-19 Vaccine ( - 2023-2 5 season) 2024 Influenza Vaccine (Season Ended) 2025 Depression Screening 08/07/2025 08/07/2024 Zoster Vaccines (1 of 2) 2032 HIB Vaccines Aged Out No longer eligi ble based on patient's age to complete this topic HPV Vaccines Aged Out No longer eligi ble based on patient's age to complete this topic IPV Vaccines Aged Out No longer eligi ble based on patient's age to complete this topic Meningococcal B Vaccine Aged Out No l onger eligible based on patient's age to complete this topic Meningococcal Vaccine Aged Out No jem molly eligible based on patient's age to complete this topic Pneumococcal Vaccine: Pediat rics (0 to 5 Years) and At-Risk Patients (6 to 64 Years) Aged Out No longer eligi ble based on patient's age to complete this topic Rotavirus Vaccines Aged Out No longer eligible based on patient's age to complete this topic
--- OUTSIDE RECORDS SUMMARY | 2024-12-25 19:26 | XMS_ITS | Encounter Summary ---
Author Organization [facility] Address [address] [facility] [place] [address] Care Team Providers Care Bench Inspector Name Role Phone Aidan Soliman MD Primary Care Provider [phone] Encounter Details Date Type Department Care Team (Late st Contact Info) Description 12/29/2023 Abstract [facility] OB [address] [place] [address] John Arreguin [address] [place], [facility]11 Social History Tobacco Use Types Packs/Day Years [...] 01/21/2025 4:00 PM EDT Office Visit [facility] OB [address] [place] [address] [place] [address] Anna Quarles PA [address] [place] [address] Dr [place], [facility]11 01/02/2026 10:00 AM EDT Office Visit [facility] [address] [place] [address] John Arreguin DO [address] [place], [place] [address] [place] [address] documented as of this encounter Visit Diagnoses Not on filedocumented in this encounter Care Teams Bench Inspector Relationship Specialty Start Date End Date Aidan Soliman MD [address] [place] [address] PCP - General Family Medicine 01/06/23 documented as of this encounter
--- OUTSIDE RECORDS SUMMARY | 2024-12-25 19:26 | XMS_ITS | Encounter Summary ---
Author Organization [facility] Address [address] [facility] [place] [address] Care Team Providers Care Petroleum Geologist Name Role Phone Aidan Soliman MD Primary Care Provider [phone] Encounter Details Date Type Department Care Team (Late st Contact Info) Description 12/25/2024 Bamboo flowsheet [facility] OB [address] [facility] [place] [address] [address] [place], [place] [id number] Social History Tobacco Use Types Packs/Day Years [...] 01/21/2025 4:00 PM EDT Office Visit [facility] OB [address] [facility] [place] [address] Anna Quarles PA [address] [place] [address] [place], [place] [id number] 01/02/2026 10:00 AM EDT Office Visit [facility] OB [address] [facility] [place] [address] John Arreguin, [address] [place], [place] [address] [place] [address] documented as of this encounter Visit Diagnoses Not on filedocumented in this encounter Care Teams Petroleum Geologist Relationship Specialty Start Date End Date Aidan Soliman MD [address] [place] [address] PCP - General Family Medicine 01/06/23 documented as of this encounter
--- OUTSIDE RECORDS SUMMARY | 2024-12-25 19:26 | XMS_ITS | Patient Health Record ---
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0 % Platelet Count 351 150-450 10 3/uL Mean Platelet Volume 9.1 9.5-13.5 fL Neutrophils Percent Auto 73.1 43.0-75.0 % Lymphocytes Percent Auto 17.4 20.5-60.0 % Monocytes Percent Auto 8.5 1.7-12.0 % Eosinophils Percent Auto 0.3 0.9-7.0 % Basophils Percent Auto 0.5 0.2-2.0 % Immature Granulocytes Pct Auto 0.2 0.0-0.5 % Neutrophils Absolute Auto 4.7 1.4-6.5 10 3/uL Lymphocytes Absolute Auto 1.1 1.2-3.8 10 3/uL Monocytes Absolute Auto 0.6 0.3-0.8 10 3/uL Eosinophils Absolute Auto 0.0 0.0-0.7 10 3/uL Basophils Absolute Auto 0.0 0.0-0.1 10 3/uL Immature Granulocytes Abs Auto 0.01 0.00-0.03 10 3/uL Performing Lab: see note ML - [facility] LB CBC AUTO DIFF Reviewed date:12/29/2023 10:05:20 PM Interpretation: Performing Lab: Notes/Report: [facility] , White Blood Count 5.7 4.0-11.0 10 3/uL Red Blood Count 4.41 4.20-5.40 10 6/uL Hemoglobin 13.4 12.0-16.0 g/dL Hematocrit 40.8 36.0-48.0 % Mean Corpuscular Volume 92.5 81.0-99.0 fL Mean Corpuscular Hemoglobin 30.4 26.7-34.0 pg Mean Corpuscular HGB Conc 32.8 29.9-35.2 g/dL Red Cell Distribution Width 12.5 11.0-15.0 % Platelet Count 370 150-450 10 3/uL Mean Platelet Volume 9.0 9.5-13.5 fL Neutrophils Percent Auto 65.0 43.0-75.0 % Lymphocytes Percent Auto 22.5 20.5-60.0 % Monocytes Percent Auto 10.1 1.7-12.0 % Eosinophils Percent Auto 1.4 0.9-7.0 % Basophils Percent Auto 0.7 0.2-2.0 % Immature Granulocytes Pct Auto 0.3 0.0-0.5 % Neutrophils Absolute Auto 3.7 1.4-6.5 10 3/uL Lymphocytes Absolute Auto 1.3 1.2-3.8 10 3/uL Monocytes Absolute Auto 0.6 0.3-0.8 10 3/uL Eosinophils Absolute Auto 0.1 0.0-0.7 10 3/uL Basophils Absolute Auto 0.0 0.0-0.1 10 3/uL Immature Granulocytes Abs Auto 0.02 0.00-0.03 10 3/uL Performing Lab: see note ML - [facility] LB PREG QUANT HCG Reviewed date:12/29/2023 10:05:20 PM Interpretation: Performing Lab: Notes/Report: [facility] , HCG Quantitative <1 10,000-100,000 5-6 WEEKS 15,000-200,000 6-8 WEEKS 500-10,000 3-4 WEEKS 1,000-50,000 4-5 WEEKS 10,000-100,000 2-3 MONTHS 50-500 1-2 WEEKS 100-5,000 2-3 WEEKS 5-50 0.2-1 WEEK Performing Lab: see note ML - [facility] LB NISH by IFA Reviewed date:06/27/2024 05:28:01 PM Interpretation: Performing Lab: Notes/Report: [facility] , Antinuclear Antibodies, IFA Positive . Positive >1:80 Borderline 1:80 Negative <1:80 Homogeneous Pattern TNP . Nucleolar Pattern TNP . Speckled Pattern 1:160 . ICAP nomenclature: AC-2,4,5,29 in systemic autoimmune rheumatic diseases. Dense Fine Speckled pattern is noted. This pattern suggests the presence of DFS70 antibody which has a low prevalence Centromere Pattern TNP . Spindle Apparatus Pattern TNP . Nuclear Membrane Pattern TNP . Midbody Pattern TNP . Nuclear Dot Pattern TNP . PCNA Pattern TNP . Centriole Pattern TNP . Note: Comment . Erythematosus, Subacute Cutaneous Lupus, Myositis Overlap Syndrome, Systemic Systemic Lupus Erythematosus, Chronic Rheumatic Disease, Autoimmune Cytopenias, Nucleolar Systemic Sclerosis, Scleroderma-Autoimmune Nuclear Dot Primary Biliary Cholangitis Autoimmune hepatitis, Juvenile Idiopathic Lay Out Inspector: Arvind Garsia PhD, Phone: [phone] Erythematosus-Scleroder ma-Autoimmune Pattern Potential Disease Association Arthritis Myositis Overlap Syndrome, Sjogren Autoimmune Rheumatic Disease, Syndrome, Raynaud phenomenon, Pulmonary Rheumatic Disease, Cancer Nuclear Primary Biliary Cholangitis, Autoimmune Centromere Scleroderma-CREST, Limited Cutaneous SSc, Linear Scleroderma, Antiphospholipid Syndrome Lupus, Congenital Heart Block, Homogeneous Systemic Lupus Erythematosus, Drug Induced Speckled Sjogren Syndrome, Systemic Lupus Mixed Connective Tissue Disease, Scleroderma-diffuse, Scleroderma-Autoimmune Membrane Hepatitis/Liver disease, Systemic Autoimmune Undifferentiated Connective Tissue Disease Raynaud's Phenomenon, Primary Biliary Cholangitis Performed at: - [facility] [phone] Myositis Overlap Syndrome, Systemic Lupus Arterial Hypertension, Systemic Autoimmune Performing Lab: see note LC - [facility] LB CRP Reviewed date:06/26/2024 02:30:10 PM Interpretation: Performing Lab: Notes/Report: [facility] , C Reactive Protein 2.59 <=0.50 mg/dL Performing Lab: see note ML - [facility] LB RHEUMATOID FACTOR Reviewed date:06/27/2024 05:28:01 PM Interpretation: Performing Lab: Notes/Report: [facility] , Rheumatoid Factor (RF) <10.0 <14.0 IU/mL Performing Lab: see note LC - [facility] LB URIC ACID SERUM Reviewed date:06/26/2024 02:30:10 PM Interpretation: Performing Lab: Notes/Report: [facility] , Uric Acid 4.4 2.6-6.0 mg/dL Performing Lab: see note - [facility] LB Antistreptolysin O Ab Reviewed date:06/27/2024 05:28:01 PM Interpretation: Performing Lab: Notes/Report: [facility] , Antistreptolysin O Ab 66.7 0.0-200.0 IU/mL Performed at: [facility] Lay Out Inspector: Arvind Garsia PhD, Phone: [phone] [address] [place], [place] [phone] Performing Lab: see note LC - [facility] LB XR FOOT RT 2V Reviewed date:07/01/2024 12:20:24 PM Interpretation: Performing Lab: Notes/Report: Source Facility: [place] [address] XRay Report Signed Patient: LIANA LANTIGUA MR#: [id number] : 1980 Acct:[id number] Age/Sex: 44 / F ADM Date: 06/27/24 Loc: [facility] Attending Dr: Wayne Thompson M.D. Ordering Physician: Wayne Thompson M.D. Date of Service: 06/27/24 Procedure(s): XR foot RT 2V Accession Number(s): [id number] cc: Wayne Thompson M.D. [place] [address] Patient Name: LIANA LANTIGUA MRN: [id number] date: 1980 Sex: F Assigned Patient Location: [facility] Current Patient Location: Accession/Order Number: [id number] Exam Date: 06/27/2024 14:50 Report Date: 07/01/2024 12:00 At the request of: WAYNE THOMPSON Procedure: XR foot RT 2V PROCEDURE: XR foot RT 2V HISTORY: Right Foot Pain ; first metatarsal phalangeal joint pain COMPARISON: None. FINDINGS: BONES:No fracture, acute abnormality, or significant arthropathy. SOFT TISSUES:1.2 cm lobular density/calcification within soft tissues plantar medial to the first metatarsal neck. EFFUSION:None visible. OTHER: Negative. XR/XR foot RT 2V IMPRESSION: 1. No acute bone abnormality or significant degenerative joint disease. 2. Irregular soft tissue density, possibly calcification within plantar medial soft tissues of uncertain etiology; bone lesion versus sequela of remote injury. Consider MRI of the right foot. Electronically authenticated by: QUENTIN FERREIRA Date: 07/01/2024 12:00 Dictated By: Quentin Ferreira M.D. Signed By: 07/01/24 1203 DD/ 1200 TD/TT: Underground Utility Locator: [place] [address] XRay Report Signed Patient: MAXIMO LANTIGUA MR#: [id number] : 1980 Acct:[id number] Age/Sex: 44 / F ADM Date: 06/27/24 Loc: [facility] Attending Dr: Helga Thompson M.D. Ordering Physician: Wayne Thompson M.D. Date of Service: 06/27/24 Procedure(s): XR ramin t RT 2V Accession Number(s): [id number] cc: Wayne Thompson M.D. [place] [address] Patient Name: LIANA LANTIGUA MRN: [id number] date: 1980 Sex: F Assigned Patient Location: [facility] Current Patient Location: Accession/Order Number: [id number] Exam Date: 14:50 Report Date: 07/01/2024 12:00 At the request of: WAYNE THOMPSON Procedure: XR foot R T 2V PROCEDURE: XR foot R T 2V HISTORY: Right Foot Pain ; first metatarsal phalangeal joint pain COMPARISON: None. FINDINGS: BONES:No fracture, acute abnormality, or significant arthropathy. SOFT TISSUES:1.2 cm lobular density/calcification within soft tissues plantar medial to the first metatarsal neck. EFFUSION:None visible. OTHER: Negative. XR/XR foot RT 2V IMPRESSION: 1. No acute bone abnormality or significant degenerative joint disease. 2. Irregular soft tissue density, possibly calcification within plantar medial soft tissues of uncertain etiology; bone lesion versus sequela of remote injury. Consider MRI of the right foot. Electronically authenticated by: QUENTIN FERREIRA Date: 07/01/2024 12:00 Dictated By: Quentin Ferreira M.D. Signed By: 07/01/24 1203 DD/ 1200 TD/TT: Underground Utility Locator: MR foot RT wo con Reviewed date:08/05/2024 05:32:28 PM Interpretation: Performing Lab: Notes/Report: Source Facility: [place] [address] Magnetic Resonance Report Signed Patient: LIANA LANTIGUA MR#: [id number] : 1980 Acct:[id number] Age/Sex: 44 / F ADM Date: 07/30/24 Loc: MRI Attending Dr: Wayne Thompson M.D. Ordering Physician: Wayne Thompson M.D. Date of Service: 07/30/24 Procedure(s): MR foot RT wo con Accession Number(s): [id number] cc: Wayne Thompson M.D. [place] [address] Patient Name: LIANA LANTIGUA MRN: [id number] date: 1980 Sex: F Assigned Patient Location: MRI Current Patient Location: Accession/Order Number: [id number] Exam Date: 07/30/2024 15:30 Report Date: 08/02/2024 12:21 At the request of: WAYNE THOMPSON Procedure: MR foot RT wo con EXAM: MR foot RT wo con REASON FOR EXAM: Soft Tissue Injury, Foot Pain. TECHNIQUE: Multiplanar, multisequence imaging of the right foot was performed without contrast COMPARISON: Radiographs 06/27/2024. FINDINGS: The bone marrow signal is without acute fracture or osteonecrosis. The visualized midfoot appears congruent. The partially imaged Lisfranc ligament is intact. There may be mild hallux valgus deformity of the first MTP joint. No bony erosive or resorptive changes are evident. A discrete plantar plate injury is not evident. Within the subcutaneous tissues along the plantar medial aspect of the first metatarsal neck, there is soft tissue T1 and T2 hypointense structure with some mild surrounding edema measuring 9 mm in maximum dimension. This likely correlates with radiographic finding. This appears to extend into close proximity to the flexor pollicis longus tendon. No definite aggressive features identified. This could reflect changes of fat necrosis and/or changes from prior tendon injury/hematoma. Again no aggressive features are present. There is mild first through third intermetatarsal web space bursitis. A discrete neuroma is not evident. No acute flexor or extensor tendon injury is evident. MR/MR foot RT wo con IMPRESSION: 1. Possible remote injury involving the flexor pollicis longus tendon at the level of the metatarsal neck with associated calcification is seen on recent radiograph. No acute tear is not evident. 2. Mild first through third intermetatarsal web space bursitis without neuroma. 3. No acute osseous abnormality. 4. Intact Lisfranc ligament Electronically authenticated by: PENELOPE WILLAMS Date: 08/02/2024 12:21 Dictated By: Penelope Willams M.D. Signed By: 08/02/24 1224 DD/ 1221 TD/TT: Underground Utility Locator: [place] [address] Magnetic Resonance Report Signed Patient: MAXIMO LANTIGUA MR#: [id number] : 1980 Acct:[id number] Age/Sex: 44 / F ADM Date: 07/30/24 Loc: MRI Attending Dr: Helga Thompson M.D. Ordering Physician: Wayne Thompson M.D. Date of Service: 07/30/24 Procedure(s): MR ramin jiménez RT wo con Accession Number(s): [id number] cc: Wayne Thompson M.D. [place] [id number] Patient Name: LIANA LANTIGUA MRN: [id number] date: 1980 Sex: F Assigned Patient Location: MRI Current Patient Location: Accession/Order Number: [id number] Exam Date: 15:30 Report Date: 08/02/2024 12:21 At the request of: WAYNE THOMPSON Procedure: MR foot R T wo con EXAM: MR foot RT wo con REASON FOR EXAM: Sof t Tissue Injury, Foot Pain. TECHNIQUE: Multiplanar, multisequence imaging of the right foot was performed without contrast COMPARISON: Radiographs 06/27/2024. FINDINGS: The bone marrow sign al is without acute fracture or osteonecrosis. The visualized midfoot appears congruent. The partially imaged Lisfranc ligament is intact. There may be mild hallux valgus deformity of the first MTP joint. No bony erosive or resorptive changes are evident. A discrete plantar plate injury is not evident. With in the subcutaneous tissues along the plantar medial aspect of the first metatarsal neck, there is soft tissue T1 and T2 hypointense structure with some mild surrounding edema measuring 9 mm in maximum dimension. This likely correlat es with radiographic finding. This appears to extend into close proximity to t he flexor pollicis longus tendon. No definite aggressive features identified. This could reflect changes of fat necrosis and/or changes from prior tendon injury/hematoma. Again no aggressive features are present. There is mild first through third intermetatarsal web space bursitis. A discrete neuroma is not evident. No acute flexor or extensor tendon injury is evident. MR/MR foot RT wo con IMPRESSION: 1. Possible remote injury involving the flexor pollicis longus tendon at the level of the metatarsal neck with associated calcification is seen on recent radiograph. No acute tear is not evident. 2. Mild first throug h third intermetatarsal web space bursitis without neuroma. 3. No acute osseous abnormality. 4. Intact Lisfranc ligament Electronically authenticated by: PENELOPE WILLAMS Date: 08/02/2024 12:21 Dictated By: Penelope Willams M.D. Signed By: 08/02/24 1224 DD/ 1221 TD/TT: Underground Utility Locator: [facility] DIFF Reviewed date:12/30/2023 12:56:00 PM Interpretation: Performing Lab: Notes/Report: [facility] , White Blood Count 12.2 4.0-11.0 10 3/uL Red Blood Count 3.77 4.20-5.40 10 6/uL Hemoglobin 11.5 12.0-16.0 g/dL Hematocrit 35.4 36.0-48.0 % Mean Corpuscular Volume 93.9 81.0-99.0 fL Mean Corpuscular Hemoglobin 30.5 26.7-34.0 pg Mean Corpuscular HGB Conc 32.5 29.9-35.2 g/dL Red Cell Distribution Width 12.4 11.0-15.0 % Platelet Count 343 150-450 10 3/uL Mean Platelet Volume 9.7 9.5-13.5 fL Neutrophils Percent Auto 78.0 43.0-75.0 % Lymphocytes Percent Auto 10.4 20.5-60.0 % Monocytes Percent Auto 11.1 1.7-12.0 % Eosinophils Percent Auto 0.1 0.9-7.0 % Basophils Percent Auto 0.2 0.2-2.0 % Immature Granulocytes Pct Auto 0.2 0.0-0.5 % Neutrophils Absolute Auto 9.5 1.4-6.5 10 3/uL Lymphocytes Absolute Auto 1.3 1.2-3.8 10 3/uL Monocytes Absolute Auto 1.4 0.3-0.8 10 3/uL Eosinophils Absolute Auto 0.0 0.0-0.7 10 3/uL Basophils Absolute Auto 0.0 0.0-0.1 10 3/uL Immature Granulocytes Abs Auto 0.03 0.00-0.03 10 3/uL Performing Lab: see note ML - [facility] LB Reason For Referral Diagnosis 1 Arthritis (M19.90) Referral Organization [facility] Referring Provider First Name Jose Cruz Referring Provider Last Name Janny Referring Provider Speciality [facility] karolina Referred Provider Madyson Quick Referred Provider Specialty Rheumatology Referral Priority Routine Medications Medication SIG (Take, Route, Frequency, Duration) Notes Start Date End Date Status Mirtazapine 30 MG 1 1/2 tablet at bedt hang Orally Once a day for 30 days 09/13/2024 Active Ketoconazole 2 % 1 application Mat Roller ally bid for 14 days 09/13/2024 Active Pantoprazole Sodium 40 MG take 1 tablet by mouth once daily for 30 Active Terbinafine HCl 250 MG 1 tablet Orally O nce a day for 30 days 09/13/2024 Active Abilify 2 MG 1 tablet Orally ever y morning for 30 days 10/15/2024 Active Ibuprofen 800 MG 1 tablet with food o r milk as needed Orally every 8 hrs PRN 06/25/2024 Active Social History Tobacco Use: Social History Observation Description Date Details (start date - stop date) Never Smoker NA - NA Tobacco Use/Smoking Question Answer Notes Patient is a nonsmoker Alcohol Screen (Audit-C) Question Answer Notes Did you have a drink contain ing alcohol in the past year? Yes How many drinks did you have on a typical day when you were drinking in the past year? 1 or 2 drinks (0 point) How often did you have a dri nk containing alcohol in the past year? Less than monthly (1 point) Points 1 Interpretation Negative Problems Problem Type SNOMED Code ICD Code Onset Dates Problem Status W/U Status Risk Notes Problem Overweight (728419959) Overweight (E66.3) Active confirmed Problem Fatigue (52142054) Fatigue (R53.83) Active conf irmed Problem Wart (71475025) Wart (B07.9) Active confirmed Problem Gastroesophageal reflux disease (771468439) GERD (gastroesophageal reflux disease) (K21.9) Active confirmed Problem Arthritis (1780172) Arthritis (M19.90) Active c onfirmed Problem Eczema (72933994) Eczema (L30.9) Active confirm ed Problem migraine (disorder) (25236545) Migraines (G43.909) Active confirmed Problem Sciatica (67792702) Sciatic leg pain (M54.30) Active confirmed Problem Gastroenteritis (16449526) Gastroenteritis (K52.9) Active confirmed Problem Fibrocystic breast changes (50082017) Fibrocystic breast (N60.19) Active confirmed Problem Eczema craquele (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) 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) Active confirmed Problem Dysfunctional uterine bleeding (11857531851733) Dysfunctional uterine bleeding (N93.8) Active confirmed Problem Cystic acne (75213943) Cystic acne (L70.0) Active confirmed Problem Displacement of lumbar intervertebral disc without myelopathy (93913084) Herniated lumbar intervertebral disc (M51.26) Active confirmed Problem Pelvic inflammatory disease (888957766) Pelvic inflammatory disease (N73.9) Active confirmed Vital Signs Blood pressure diastolic 82 mm Hg 09/13/2024 Height 67 in 09/13/2024 Blood pressure systolic 122 mm Hg 09/13/2024 Weight 210.4 lbs 09/13/2024 BMI 32.95 kg/m2 09/13/2024 Encounters Encounter Location Date Provider Diagnosis [facility] [address] [place] [address] 04/26/2024 Jose Cruz Hoy Eczema craquele L30. 8 [facility] [address] [place] [address] 06/25/2024 Jose Cruz Hoy Arthritis M19.90 [facility] [address] [place] [address] 09/13/2024 Jose Cruz Hoy Tinea pedis B35.3 an d GERD (gastroesophageal reflux disease) K21.9 [facility] ([place], [place]) [address] [place] [address] 03/14/2024 Jose Cruz Hoy [facility] [address] [place] [address] 04/30/2024 Jose Cruz Hoy Eczema craquele L30. 8 [facility] [address] [place] [address] 04/30/2024 Jose Cruz Hoy [facility] [address] [place] [address] 06/26/2024 Jose Cruz Hoy Right foot pain M79.671 [facility] [address] [place] [address] 06/27/2024 Jose Cruz Hoy [facility] [address] [place] [address] 07/01/2024 Jose Cruz Hoy Soft tissue injury T14.90XA and Foot pain, right M79.671 [facility] [address] [place] [address] 07/09/2024 Jose Cruz Hoy Arthritis M19.90 [facility] [address] [place] [address] 08/05/2024 Jose Cruz Hoy [facility] [address] [place] [address] 10/01/2024 Jose Cruz Thompson Tinea pedis B35.3 [facility] [address] [place] [address] 10/15/2024 Jose Cruz Thompson Assessments Encounter Date Diagnosis (ICD Code) Assessment Notes Treatment Notes Treatment Clinical Notes Section Notes 04/26/2024 Eczema craquele (ICD-10 - L30.8) 06/25/2024 Arthritis (ICD-10 - M19.90) 09/13/2024 Tinea pedis (ICD-10 - B35.3) 09/13/2024 GERD (gastroesophage al reflux disease) (ICD-10 - K21.9) 04/30/2024 Eczema craquele (ICD-10 - L30.8) 06/26/2024 Right foot pain (ICD-10 - M79.671) 07/01/2024 Foot pain, right (ICD-10 - M79.671) 07/01/2024 Soft tissue injury (ICD-10 - T14.90XA) 07/09/2024 Arthritis (ICD-10 - M19.90) 10/01/2024 Tinea pedis (ICD-10 - B35.3) Plan Of Treatment Pending Test Test Name Order Date UA (URINALYSIS, COMPLETE) 02/23/2023 Urine Culture 02/23/2023 RHEUMATOID PANEL 06/25/2024 XR Foot 2 Views Right 06/26/2024 URINE MICROSCOPIC ONLY 02/23/2023 US KIDNEYS 02/23/2023 MRI FOOT RIGHT WO CONTRAST 07/01/2024 Insurance Providers Payer Name Payer Address Payer Phone Subscriber Number Group Number Insured Name Patient Relationship to Insured Coverage Start Date Coverage End Date [employer] PPO PLUS LOCAL PLAN [address] [place] [address] [id number] Liana Lantigua Self - patient is the insured Medications Administered Medication Instructions Date of Administration Dosage Notes Ketorolac Tromethamine 06/25/2024 60 mg Triamcinolone 40 mg/ml 06/25/2024 80 mg Medical (General) History Medical History History ICD Code Migraines G43.909 Cystic acne L70.0 Fibrocystic breast disease 610.1 Pelvic inflammatory disease N73.9 Nephrolithiasis N20.0 Arthritis M19.90 Overweight E66.3 Wart B07.9 Eczema L30.9 Sciatic leg pain M54.30 Gastroenteritis K52.9 Herniated lumbar intervertebral disc M51 .26 Fatigue R53.83 Fibrocystic breast N60.19 Dysfunctional uterine bleeding N93.8 Surgical History Surgery Date(Month/Year) CHOLECYSTECTOMY 2005 DELIVERY x3 LITHOTRIPSY Laproscopy 04/2023 partial hysterectomy 12/22
--- OUTSIDE RECORDS SUMMARY | 2024-12-25 19:26 | XMS_ITS | Encounter Summary ---
Author Organization [facility] Address [address] [facility] [place] [address] Care Team Providers Care Network Infrastructure Architect Name Role Phone Aidan Soliman MD Primary Care Provider [phone] Encounter Details Date Type Department Care Team (Late st Contact Info) Description 12/29/2023 Abstract [facility] OB [address] [place] [address] [address] Ar[address]uin [address] Sanam Haney, [facility]11 Social History Tobacco Use Types Packs/Day Years [...] 01/21/2025 4:00 PM EDT Office Visit [facility] OB [address] [place] [address] [place] [address] Anna Quarles PA [address] [place] [address] Dr Aldana, [facility]11 01/02/2026 10:00 AM EDT Office Visit [facility] [address] [place] [address] John Arreguin DO [address] [place], [place] [address] [place] [address] documented as of this encounter Visit Diagnoses Not on filedocumented in this encounter Care Teams Network Infrastructure Architect Relationship Specialty Start Date End Date Aidan Soliman MD [address] [place] [address] PCP - General Family Medicine 01/06/23 documented as of this encounter
--- OUTSIDE RECORDS SUMMARY | 2024-12-25 19:41 | XMS_ITS | CCD ---
Author Organization [facility] Care Team Providers Care Slp Teacher Name Role Phone DONNA, DR BLACK Primary [...] Unavailable SHAYNA, DR KAREL Christy Admitting Unavailable BATH, DR JJ Jordan Consulting Unavailable SHAYNA, DR [...] DR BLACK Primary Care Unavailable DONNA, DR BLAKC Primary Care Unavailable SHAYNA, DR KAREL Christy [...] DR KAREL Christy Consulting Unavailable CORRAL, DR AKREL Christy Admitting Unavailable HOY, DR BLACK Primary Care Unavailable HOY, DR BLACK Primary Care Unavailable CORRAL, DR KAREL Christy Consulting Unavailable SHAYNA, DR KARLE Christy Admitting Unavailable SHAYNA, DR KAREL Christy [...] Unavailable HOY, DR BLACK Primary Care Unavailable Liliane Taylor Attending Unavailable Yadira Arreguin Referring Unavailable Liliane Taylor Attending Unavailable MONICO HUNTER Attending UnavailPRO Meneses Attending Unavailable Wayne Soliman MD Primary Care Provider [phone] YADIRA ARREGUIN Attending Unavailable YADIRA ARREGUIN Attending Unavailable YADIRA ARREGUIN Attending Unavailable ANNA BRADEN Attending Unavailable Medications Current Medications Medication Drug Class(es) Dates Sig (Normalized) Sig (Original) estradiol 0.5 mg oral tablet (3 sources) Estrogen Start: 12-06-2024 End: 01-05-2025 take 1 tablet by mouth once daily estradiol (Estrace) 0.5 MG tablet Indications: H/O: hysterectomy Take 1 tablet (0.5 mg) by mouth Daily Take 1 tablet by mouth for 30 days 30 tablet 3 12/06/2024 01/05/2025 Active ibuprofen 800 mg oral tablet (4 sources) Nonsteroidal Anti-inflammatory Drug Start: 08-04-2023 ibuprofen 800 MG tablet Take 800 mg by mouth in the morning and 800 mg at noon and 800 mg in the evening and 800 mg before bedtime. 08/04/2023 Active 24 hr metFORMIN hydrochloride 500 mg extended release oral tablet (3 sources) Biguanide Start: 12-06-2024 End: 01-05-2025 take 1 tablet by mouth every twenty-four hours at mealtime metFORMIN XR (Glucophage-XR) 500 MG 24 hr tablet Indications: H/O: hysterectomy , Encounter for weight management Take 1 tablet (500 mg) by mouth in the evening. Take with meals Do not crush, chew, or split. 30 tablet 11 12/06/2024 01/05/2025 Active pantoprazole 40 mg delayed release oral tablet (4 sources) Proton Pump Inhibitor take 1 tablet by mouth in the morning pantoprazole (ProtoNix) 40 MG EC tablet Take 40 mg by mouth in the morning. Active phentermine hydrochloride 37.5 mg oral tablet (16 sources) Sympathomimetic Amine Anorectic Start: 09-05-2023 take 1 tablet by mouth before mealtime phentermine (Adipex-P) 37.5 MG tablet Indications: Encounter for weight management Take 1 tablet (37.5 mg) by mouth in the morning. Take before meals. 90 tablet 03/14/2024 Active Problems Active Problems Problem Classification Problem Date Documented Date Episodic/Chronic Administrative/social admission (2 sources) Patient encounter status; Translations: [Persons encountering health services in other specified circumstances] 12-06-2024 Episodic Complications of surgical procedures or medical care (4 sources) Wound pain ; Translations: [Other postprocedural complications of skin and subcutaneous tissue] 12-06-2024 Episodic Immunizations and screening for infectious disease (3 sources) Encounter for screening for human papillomavirus (HPV); Translations: [Other specified abnormal immunological findings in serum] Onset: 01-13-2022 Episodic Menstrual disorders (8 sources) Menorrhagia; Translations: [Excessive and frequent menstruation with regular cycle] Onset: 08-08-2023 08-08-2023 Chronic Other connective tissue disease (1 source) Pain in left leg; Translations: [PAIN IN LEFT LEG] Onset: 04-22-2022 Episodic Other connective tissue disease (1 source) Pain in right leg; Translations: [PAIN IN RIGHT LEG] Onset: 04-22-2022 Episodic Other female genital disorders (4 sources) Pain in female genitalia on intercourse; Translations: [Unspecified dyspareunia] Onset: 08-08-2023 08-08-2023 Chronic Other nervous system disorders (2 sources) Other chronic pain; Translations: [OTHER CHRONIC PAIN] Onset: 04-22-2022 Chronic Other non-traumatic joint disorders (2 sources) Pain in right ankle and joints of right foot; Translations: [Pain in right ankle and joints of right foot] Onset: 08-07-2024 Episodic Other non-traumatic joint disorders (2 sources) Pain in unspecified joint; Translations: [Pain in unspecified joint] Onset: 07-11-2024 Episodic Other screening for suspected conditions (not mental disorders or infectious disease) (6 sources) Encounter for screening for malignant neoplasm of cervix; Translations: [Elevated C-reactive protein (CRP)] Onset: 01-11-2022 Episodic Other skin disorders (2 sources) Rash and other nonspecific skin eruption; Translations: [Rash and other nonspecific skin eruption] Onset: 07-11-2024 Episodic Spondylosis; intervertebral disc disorders; other back [...] Problem Classification Problem Date Documented Date Episodic/Chronic Abdominal pain (4 sources) Pain in female pelvis; Translations: [Pelvic and perineal pain] Onset: 08-08-2023 08-08-2023 Episodic Nonmalignant breast conditions (2 sources) Hypertrophy of breast; Translations: [Ptosis of breast] Onset: 03-07-2024 Episodic Other aftercare (4 sources) Surgical follow-up; Translations: [Encounter for follow-up examination after completed treatment for conditions other than malignant neoplasm] Onset: 01-05-2024 01-05-2024 Episodic Other nervous system disorders (4 sources) Acute postoperative pain; Translations: [Other acute postprocedural pain] Onset: 01-05-2024 01-05-2024 Episodic Other skin disorders (4 sources) Generalized [...] Test Name Value Interpretation Reference Range Facility Follow-Upon 08-07-2024 Follow-Up [id number] Liana Lantigua 1980 F Date Provider Department Center 08/07/2024 [id number] LUCIANO Elvis [facility]HE[facility] Pb Heal Family History Family history unknown: Yes Level of Service:80080 [place] OFFICE/OUTPATIENT ESTABLISHED MOD MDM 30 MIN () Reason for Visit and Comments: Follow-up [938434] - 3 week follow up Normal [facility] ANTI-CENTROMERE ANTIBODYon 1 09-11-2023 ANTI-CENTROMERE ANTIBODY Negative Normal Negative [facility] Comment on above: Order Comment: 1:160 homogeneous pattern observed. Performed By: #### L [id number] #### [facility] [address] [place] [address] ANTI-DNA ANTIBODY, DOUBLE-ST RANDEDon 07-11-2024 DSDNA ANTIBODY TITER <1:10 Normal <1:10 [facility] Comment on above: Performed By: #### L [id number] #### [facility] [address] [place] [address] ANTI-SCLERODERMA ANTIBODYon 07-11-2024 SCLERODERMA (SCL-70) AB 1 AU/mL Normal 0-40 [facility] Comment on above: Result Comment: INTE RPRETIVE INFORMATION: Scleroderma (Scl-70) (KARLA) Ab, IgG 29 AU/mL or Less ............. Negative 30 - 40 AU/mL ................ Equivocal 41 AU/mL or Greater .......... Positive The presence of Scl-70 antibodies (also referred to as topoisomerase I, catrachita-I or LINO) is considered diagnostic for systemic sclerosis (SSc). Scl-70 antibodies alone are detected in about 20 percent of SSc patients and are associated with the diffuse form of the disease, which may include specific organ involvement and poor prognosis. Scl-70 antibodies have also been reported in a varying percentage of patients with systemic lupus erythematosus (SLE). Scl-70 (catrachita-1) is a DNA binding protein and anti-DNA/DNA complexes in the sera of SLE patients may bind to catrachita-I, leading to a false-positive result. The presence of Scl-70 antibody in sera may also be due to contamination of recombinant Scl-70 with DNA derived from cellular material used in immunoassays. Strong clinical correlation is recommended if both Scl-70 and dsDNA antibodies are detected. Negative results do not necessarily rule out the presence of SSc. If clinical suspicion remains, consider further testing for centromere, RNA polymerase III and U3-PHARMACY CUSTOMER CARE SPECIALIST, PM/Scl, or Th/To antibodies. Performed By: [facility] [address] [place] [address] Check Embosser: Juan Morocho MD, PhD CLIA Number: [id number] Performed By: #### L [id number] #### [facility] ([facility]) [address] [place] [address] BETA-2 GLYCOPROTEIN ANTIBODY IGG AND IGMon 07-11-2024 BETA 2 GLYCOPROTEIN 1 IGG AB (SGU) IN SERUM 0.6 SGU Normal <=19.9 [facility] Comment on above: Performed By: #### L [id number] #### [facility] ([facility]) [address] [place] [address] BETA 2 GLYCOPROTEIN 1 IGM ANTIBODY (SMU) IN SERUM 78.2 SMU High <=19.9 [facility] Comment on above: Performed By: #### L [id number] #### [facility] ([facility]) [address] [place] [address] C-REACTIVE PROTEINon 024 C REACTIVE PROTEIN (MG/L) IN SER/PLAS 11.7 mg/L High <=5.0 [facility] Comment on above: Result Comment: Test ing performed using a new methodology, turbidimetry. Normal ranges have been updated. Old normal range was <8 mg/L. Performed By: #### L [id number] #### [facility] ([facility]) [address] [place] [address] CARDIOLIPIN ANTIBODY, IGG AN D IGMon 07-11-2024 ANTICARDIOLIPIN IGG ANTIBODY 11.1 GPL Normal <=22.9 [facility] Comment on above: Performed By: #### L [id number] #### [facility] ([facility]) [address] [place] [address] ANTICARDIOLIPIN IGM ANTIBODY 2.5 MPL Normal <10.9 [facility] Comment on above: Performed By: #### L [id number] #### [facility] ([facility]) [address] [place] [address] CREATININE, URINE, RANDOMon 07-11-2024 Creatinine (U) [Mass/Vol] 139.0 mg/dL Normal 26-299 [facility] Comment on above: Performed By: #### L [id number] #### [facility] ([facility]) [address] [place] [address] DRVVTon 07-11-2024 DILUTE MATHEUS VIPER VENOM TIME 1.15 Normal 0-1.2 [facility] Comment on above: Order Comment: Posit kari results should be repeated after 12 weeks to confirm persistence of LA. The presence of DOAC drugs such as apixaban or rivaroxaban, or Vitamin K antagonists, heparin, and acute phase proteins at time of sample collection may interfere with the validity of results. Performed By: #### L [id number] #### [facility] ([facility]) [address] [place] [address] DILUTE MATHEUS VIPER VENOM TIME CONF Normal [facility] Comment on above: Order Comment: Posit kari results should be repeated after 12 weeks to confirm persistence of LA. The presence of DOAC drugs such as apixaban or rivaroxaban, or Vitamin K antagonists, heparin, and acute phase proteins at time of sample collection may interfere with the validity of results. Performed By: #### L [id number] #### [facility] ([facility]) [address] [place] [address] DILUTE MATHEUS VIPER VENOM TIME MIX Normal [facility] Comment on above: Order Comment: Posit kari results should be repeated after 12 weeks to confirm persistence of LA. The presence of DOAC drugs such as apixaban or rivaroxaban, or Vitamin K antagonists, heparin, and acute phase proteins at time of sample collection may interfere with the validity of results. Performed By: #### L [id number] #### [facility] ([facility]) [address] [place] [address] EXTRACTABLE NUCLEAR ANTIGEN ANTIBODIESon 07-11-2024 ANTI SM AB Negative Normal [facility] Comment on above: Performed By: #### L [id number] #### [facility] ([facility]) [address] [place] [address] ANTI SM/ANTIRNP AB Negative Normal [facility] Comment on above: Performed By: #### L [id number] #### [facility] ([facility]) [address] [place] [address] Office Visiton 07-11-2024 Follow-up visit [id number] Liana Lantigua 1980 F Date Provider Department Center 07/11/2024 Anila3-JORGE A HUNTER RHEUM Pb Heal Family History Family history unknown: Yes Level of Service:65243 [place] OFFICE/OUTPATIENT NEW MODERATE MDM 45 MINUTES (GC) Reason for Visit and Comments: Arthritis [[id number]] New Patient [632] Normal [facility] Orders Onlyon 07-11-2024 Orders Only [id number] Liana Lantigua 1980 F Date Provider Department Center 07/11/2024 Steff-NAY JHA [facility] Pb Heal Family History Family history unknown: Yes Normal [facility] PROTEIN, URINE, RANDOMon Protein (U) [Mass/Vol] 9.8 mg/dL Normal [facility] Comment on above: Result Comment: Ther e are no established reference values for random urine specimens. Performed By: #### L [id number] #### [facility] [address] [place] [address] RNA POLYMERASE III ANTIBODY IGGon 07-11-2024 RNA POLYMERASE III ANTIBODY, IGG 25 Units High 0-19 [facility] Comment on above: Result Comment: INTE RPRETIVE INFORMATION: RNA Polymerase III Antibody, IgG 19 Units or less ......Negative 20 - 39 Units .........Weak Positive 40 - 80 Units .........Moderate Positive 81 Units or greater ...Strong Positive The presence of RNA polymerase III IgG antibody, when considered in conjunction with other laboratory and clinical findings, is an aid in the diagnosis of systemic sclerosis (SSc) with increased incidence of skin involvement and renal crisis with the diffuse cutaneous form of SSc. RNA polymerase III IgG antibody occur in about 11-23 percent of SSc patients, and typically in the absence of anti-centromere and anti-Scl-70 antibodies. A negative result indicates no detectable IgG antibodies to the dominant antigen of RNA polymerase III and does not rule out the possibility of SSc. False-positive results may also occur due to non-specific binding of immune complexes. Strong clinical correlation is recommended. If clinical suspicion remains, consider additional testing for other antibodies associated with SSc, including centromere, Scl-70, U3-PHARMACY CUSTOMER CARE SPECIALIST, PM/Scl, or Th/To. Performed By: [facility] [address] [place] [address] Check Embosser: Juan Morocho MD, PhD CLIA Number: [id number] Performed By: #### L [id number] #### [facility] ([facility]) [address] [place] [address] SEDIMENTATION RATEon 024 SEDIMENTATION RATE, ERYTHROCYTE 29 mm/hr High <20 [facility] Comment on above: Performed By: #### L [id number] #### [facility] ([facility]) [address] [place] [address] SJOGRENS SYNDROME ANTIBODIES A AND Bon 07-11-2024 KARLA TO SSA (RO) ANTIBODY Negative Normal Negative [facility] Comment on above: Performed By: #### L [id number] #### [facility] ([facility]) [address] [place] [address] KARLA TO SSB (LA) ANTIBODY Negative Normal Negative [facility] Comment on above: Performed By: #### L [id number] #### [facility] ([facility]) [address] [place] [address] URINALYSISon 07-11-2024 BILIRUBIN, TOTAL PRESENCE IN URINE Negative Normal Negative [facility] Comment on above: Order Comment: Micro scopics not performed on urines with negative chemical reactions unless requested on original order. Performed By: #### L [id number] #### [facility] [address] [place] [address] Clarity (U) Clear Normal Clear [facility] Comment on above: Order Comment: Micro scopics not performed on urines with negative chemical reactions unless requested on original order. Performed By: #### L [id number] #### [facility] [address] [place] [address] Color (U) Yellow Normal Colorless, Yellow, Light-Yellow [facility] Comment on above: Order Comment: Micro scopics not performed on urines with negative chemical reactions unless requested on original order. Performed By: #### L [id number] #### [facility] ([facility]) [address] [place] [address] GLUCOSE (MG/DL) IN URINE Normal Normal Normal [facility] Comment on above: Order Comment: Micro scopics not performed on urines with negative chemical reactions unless requested on original order. Performed By: #### L [id number] #### [facility] ([facility]) [address] [place] [address] HEMOGLOBIN PRESENCE IN URINE Negative Normal Negative [facility] Comment on above: Order Comment: Micro scopics not performed on urines with negative chemical reactions unless requested on original order. Performed By: #### L [id number] #### [facility] ([facility]) [address] [place] [address] Ketones Ql (U) 40 mg/dL Abnormal Negative [facility] Comment on above: Order Comment: Micro scopics not performed on urines with negative chemical reactions unless requested on original order. Performed By: #### L [id number] #### [facility] ([facility]) [address] [place] [address] LEUKOCYTE ESTERASE PRESENCE IN URINE BY TEST STRIP Negative Normal Negative [facility] Comment on above: Order Comment: Micro scopics not performed on urines with negative chemical reactions unless requested on original order. Performed By: #### L [id number] #### [facility] ([facility]) [address] [place] [address] NITRITE PRESENCE IN URINE Negative Normal Negative [facility] Comment on above: Order Comment: Micro scopics not performed on urines with negative chemical reactions unless requested on original order. Performed By: #### L [id number] #### [facility] ([facility]) [address] [place] [address] pH (U) 5.5 [pH] Normal 5.0-8.0 [facility] Comment on above: Order Comment: Micro scopics not performed on urines with negative chemical reactions unless requested on original order. Performed By: #### L [id number] #### [facility]) [address] [place] [address] Protein (U) [Mass/Vol] Negative Normal Negative [facility] Comment on above: Order Comment: Micro scopics not performed on urines with negative chemical reactions unless requested on original order. Performed By: #### L [id number] #### [facility] [address] [facility] [address] Specific gravity (U) [Rel density] 1.024 Normal 1.010-1.030 [facility] Comment on above: Order Comment: Micro scopics not performed on urines with negative chemical reactions unless requested on original order. Performed By: #### L [id number] #### [facility] ([facility]) [address] [place] [address] UROBILINOGEN (MG/DL) IN URINE Normal Normal Normal [facility] Comment on above: Order Comment: Micro scopics not performed on urines with negative chemical reactions unless requested on original order. Performed By: #### L [id number] #### [facility] ([facility]) [address] [place] [address] Plastic Surgery Visit Report on 02-15-2024 Plastic Surgery Visit Report [facility] Plastic Reconstructive Surgery [address] [place] [address] OFFICE VISIT Date of Service: 02/15/24 MR#: [id number] Acct: [id number] Name: LIANA LANTIGUA Rep #: [id number] : 1980 Provider: Dr. Liliane white MD Age/Sex: 43/F Location: [facility] Status: Signed Intake Vital Signs 02/15/24 15:04 [...] Note: pt here for breast reduction consult [facility] Medical History (Updated 02/15/24 @ 15:36 by [...] pain. She has pursued physical therapy and administrator health care facility for her back in the past. She [...] after h (more content not included)... Normal [facility] Cytology Cervical or vaginal smear or scraping studyon 08-08-[address] [facility] XR LSPINE W_OBLS AND FLEX_EX Ton 06-16-2022 [...] JJ NIEVES Date: 2022-06-16 07:28 Normal [facility] XR CSPINE OBL FLEX_EXTon XR CSPINE OBL [...] CIARA ROQUE Date: 2022-03-31 15:57 Normal [facility] PREG HCG QUALon 01-26-2022 , QUAL Negative Normal NEGATIVE [facility] Comment on above: Performed By: #### P REG #### [facility] [address] [place] [address] Dr. Linnette Ventura [facility] SARS-CoV-2 (COVID-19) RNA AYAZ+probe Ql (Unsp spec) Not detected Normal NOT DETECTED [facility] Comment on above: Result Comment: When diagnostic [...] for this test is supported by the Fire Information Officer of Health and Human Service's declaration [...] used). Performed By: #### C VDTB #### [facility] [address] [address] [address] Linnette Ventura PAP ACOG PANEL 2: 30 to 65on 01-15-2022 . . Normal [facility] Comment on above: Result Comment: Perf ormed at: WB Performed By: #### A 1C #### [facility] [address] [place] [address] Dr. Linnette Ventura Age Gdln ACOG Testing 30-65 Normal [facility] Comment on above: Performed By: #### A 1C #### [facility] [address] [place] [address] Dr. Linnette Ventura DIAGNOSIS: Comment Normal [facility] Comment on above: Result Comment: NEGA TIVE FOR INTRAEPITHELIAL LESION OR MALIGNANCY. Performed at: WB Performed By: #### A 1C #### [facility] [address] [place] [address] Dr. Linnette Ventura HPV Aptima Negative Normal Negative [facility] Comment on above: Result Comment: This nucleic acid amplification test detects fourteen high-risk HPV types (16,18,31,33,35,39,45,51,52,56,58,59,66,68) without differentiation. Performed at: =G Performed By: #### A 1C #### [facility] [address] [place] [address] Dr. Linnette Ventura Methodology: Comment Normal [facility] Comment on above: Result Comment: This liquid based ThinPrep(R) pap test was screened with the use of an image guided system. Performed at: WB Performed By: #### A 1C #### [facility] [address] [place] [address] Dr. Linnette Ventura Note: Comment Normal [facility] Comment on above: Result Comment: The Pap smear is a screening test designed to aid in the detection of premalignant and malignant conditions of the uterine cervix. It is not a diagnostic procedure and should not be used as the sole means of detecting cervical cancer. Both false-positive and false-negative reports do occur. . Performed at: WB Performed By: #### A 1C #### [facility] [address] [place] [address] Dr. Linnette Ventura Performed by: Comment Normal [facility] Comment on above: Result Comment: Anna Pollard, Gasoline Truck Operator (ASCP) Performed at: WB Performed By: #### A 1C #### [facility] [address] [place] [address] Dr. Linnette Ventura Specimen adequacy: Comment Normal [facility] Comment on above: Result Comment: Sati sfactory for evaluation. Endocervical and/or squamous metaplastic cells (endocervical component) are present. Performed at: WB Performed By: #### A 1C #### [facility] [address] [place] [address] Dr. Linnette Ventura CBC AUTO DIFFon 01-12-2022 BASO # 0.0 103/ul Normal 0.0-0.1 [facility] Comment on above: Performed By: #### C BC #### [facility] [address] [place] [address] Dr. Linnette Ventura Basophils/100 WBC (Bld) 0.5 % Normal 0.2-2.0 [facility] Comment on above: Performed By: #### C BC #### [facility] [address] [place] [address] Dr. Linnette Ventura EO # 0.1 103/ul Normal 0.0-0.7 [facility] [facility] Comment on above: Performed By: #### C BC #### [facility] [address] [place] [address] Dr. Linnette Ventura Eosinophils/100 WBC (Bld) 1.8 % Normal 0.9-7.0 [facility] Comment on above: Performed By: #### C BC #### [facility] [address] [place] [address] Dr. Linnette Ventura Erythrocyte distribution width (RBC) [Ratio] 12.4 % Normal 11.0-15.0 [facility] Comment on above: Performed By: #### C BC #### [facility] [address] [place] [address] Dr. Linnette Ventura Hematocrit (Bld) [Volume fraction] 39.3 % Normal 36.0-48.0 [facility] Comment on above: Performed By: #### C BC #### [facility] [address] [place] [address] Dr. Linnette Ventura Hemoglobin (Bld) [Mass/Vol] 13.2 g/dL Normal 12.0-16.0 [facility] Comment on above: Performed By: #### C BC #### [facility] [address] [place] [address] Dr. Linnette Ventura IG # 0.02 10e3/ul Normal 0.00-0.03 [facility] Comment on above: Performed By: #### C BC #### [facility] [address] [place] [address] Dr. Linnette Ventura IG % 0.4 % Normal 0.0-0.5 [facility] Comment on above: Performed By: #### C BC #### [facility] [address] [place] [address] Dr. Linnette Ventura LYMPH # 1.4 103/ul Normal 1.2-3.8 [facility] Comment on above: Performed By: #### C BC #### [facility] [address] [place] [address] Dr. Linnette Ventura Lymphocytes/100 WBC (Bld) 24.7 % Normal 20.5-60.0 [facility] Comment on above: Performed By: #### C BC #### [facility] [address] [place] [address] Dr. Linnette Ventura MANUAL DIFF REQ NO Normal [facility] Comment on above: Performed By: #### C BC #### [facility] [address] [place] [address] Dr. Linnette Ventura MCH (RBC) [Entitic mass] 31.8 pg Normal 26.7-34.0 [facility] Comment on above: Performed By: #### C BC #### [facility] [address] [place] [address] Dr. Linnette Ventura MCHC (RBC) [Mass/Vol] 33.6 g/dL Normal 29.9-35.2 [facility] Comment on above: Performed By: #### C BC #### [facility] [address] [address] [address] Linnette Ventura MCV (RBC) [Entitic vol] 94.7 fL Normal 81.0-99.0 [facility] Comment on above: Performed By: #### C BC #### [facility] [address] [address] [address] Linnette Ventura MONO # 0.7 103/ul Normal 0.3-0.8 [facility] Comment on above: Performed By: #### C BC #### [facility] [address] [address] [address] Linnette Ventura Monocytes/100 WBC (Bld) 12.2 % Critically high 1.7-12.0 [facility] Comment on above: Performed By: #### C BC #### [facility] [address] [address] [address] Linnette Ventura NEUT # 3.3 103/ul Normal 1.4-6.5 [facility] Comment on above: Performed By: #### C BC #### [facility] [address] [address] [address] Linnette Ventura Neutrophils/100 WBC (Bld) 60.4 % Normal 43.0-75.0 [facility] Comment on above: Performed By: #### C BC #### [facility] [address] [address] [address] Linnette Ventura Platelet mean volume (Bld) [Entitic vol] 8.9 fL Critically low 9.5-13.5 [facility] Comment on above: Performed By: #### C BC #### [facility] [address] [address] [address] Linnette Ventura PLT 310 103/ul Normal 150-450 [facility] Comment on above: Performed By: #### C BC #### [facility] [address] [address] [address] Linnette Ventura RBC 4.15 106/ul Critically low 4.20-5.40 [facility] Comment on above: Performed By: #### C BC #### [facility] [address] [place] [address] Dr. Linnette Ventura WBC 5.5 103/ul Normal 4.0-11.0 [facility] Comment on above: Performed By: #### C BC #### [facility] [address] [place] [address] Dr. Linnette Ventura GLYCOHEMOGLOBIN A1Con 2021 ADA RECOMMENDATION SEE BELOW Normal [facility] Comment on above: Result Comment: ADA RECOMMENDED LIMIT 4.0 - 6.0 ADA THERAPEUTIC TARGET < 7.0 ACTION SUGGESTED > 7.0 Performed By: #### A 1C #### [facility] [address] [place] [address] Dr. Linnette Ventura Glucose [Mass/Vol] 100 mg/dL Normal [facility] Comment on above: Performed By: #### A 1C #### [facility] [address] [place] [address] Dr. Linnette Ventura HbA1c (Bld) [Mass fraction] 5.1 % Normal 4.5-6.2 [facility] Comment on above: Performed By: #### A 1C #### [facility] [address] [place] [address] Dr. Linnette Ventura TSHon 01-12-2022 TSH 0.789 uIU/mL Normal 0.358-3.740 [facility] Comment on above: Performed By: #### T SH #### [facility] [address] [place] [address] Dr. Linnette Ventura PREG HCG QUALon 12-22-2021 , QUAL Negative Normal NEGATIVE [facility] Comment on above: Performed By: #### P REG #### [facility] [address] [place] [address] Dr. Linnette Ventura Covid-19 PCR (CVDTB)on 11-29 SARS-CoV-2 (COVID-19) RNA AYAZ+probe Ql (Unsp spec) Not detected Normal NOT DETECTED [facility] Comment on above: Result Comment: This test is not yet approved or cleared by the [place] FDA. When there are no FDA-approved or cleared tests available, and other criteria are met, FDA can make tests available under an emergency access mechanism called an Emergency Use Authorization (EUA). The EUA for this test is supported by the [place] of Health and Human Service's (HHS's) declaration [...] SARS-CoV-2. Performed By: #### P REG #### [facility] [address] [address] [address] Linnette Ventura PREG HCG QUALon 12-01-2021 , QUAL Negative Normal NEGATIVE [facility] Comment on above: Performed By: #### P REG #### [facility] [address] [place], [place] [address] Dr. Linnette Ventura [facility] PCR [facility]31 SARS-CoV-2 (COVID-19) RNA AYAZ+probe Ql (Unsp spec) Not detected Normal NOT DETECTED [facility] Comment on above: Result Comment: This test is not yet approved or cleared by the [place] FDA. When there are no FDA-approved or cleared tests available, and other criteria are met, FDA can make tests available under an emergency access mechanism called an Emergency Use Authorization (EUA). The EUA for this test is supported by the [place] of Health and Human Service's (HHS's) [...] SARS-CoV-2. Performed By: #### A 1C #### [facility] [address] [address] [address] Linnette Ventura PREG HCG QUALon 09-01-2021 , QUAL Negative Normal NEGATIVE [facility] Comment on above: Performed By: #### P REG #### [facility] [address] [address] [address] Linnette Ventura Covid-19 PCR (CVDTB)on 08-02 SARS-CoV-2 (COVID-19) RNA AYAZ+probe Ql (Unsp spec) Not detected Normal NOT DETECTED [facility] Comment on above: Result Comment: This test is not yet approved or cleared by the [place] FDA. When there are no FDA-approved or cleared tests available, and other criteria are met, FDA can make tests available under an emergency access mechanism called an Emergency Use Authorization (EUA). The EUA for this test is supported by the [place] of Health and Human Service's (HHS's) declaration [...] SARS-CoV-2. Performed By: #### C VDTBH #### [facility] [address] [place], [place] [id number] Dr. Linnette Ventura US CARL DOP LEG LTon 07-28-20 21 US CARL DOP LEG LT Ultrasound venous [...] JJ CARRILLO Date: 2021-07-28 17:24 Normal [facility] PREG HCG QUALon 07-21-2021 , QUAL Negative Normal NEGATIVE [facility] Comment on above: Performed By: #### P REG #### [facility] [address] [address] [address] Linnette Ventura Vital Signs Date Time Vital Sign Value Performing Clinician Faci lity 12-06-2024 10:23-0400 Body mass index (BMI) [Ratio] 34.3 kg/m2 Yadira Kallie DO Work Phone: [facility] 12-06-2024 10:23-0400 Body weight 99.34 kg Yadira Kallie DO Work Phone: [facility] 12-06-2024 10:23-0400 Diastolic blood pressure 72 mm[Hg] Yadira Kallie DO Work Phone: [facility] 12-06-2024 10:23-0400 Systolic blood pressure 128 mm[Hg] Yadira Kallie DO Work Phone: [facility] Healthcare Encounters Encounter Date Encounter Type Care Provider Facility Start: 12-25-2024 End: 12-25-2024 Bamboo flowsheet Yadira Kallie DO Work Phone: [facility] Start: 12-25-2024 End: 12-25-2024 Bamboo flowsheet Yadira Kallie DO Work Phone: [facility] Start: 12-06-2024 End: 12-06-2024 Bamboo flowsheet Yadira Kallie DO Work Phone: [facility] Start: 12-06-2024 End: 12-06-2024 Bamboo flowsheet Yadira Kallie DO Work Phone: [facility] Start: 12-06-2024 End: 12-06-2024 Office outpatient visit 15 minutes Yadira Kallie DO Work Phone: [facility] Comment on above: Pain at surgical inc ision; H/O: hysterectomy; Encounter for weight management Start: 12-06-2024 End: 12-06-2024 ambulatory YADIRA KALLIE Not Available Start: 08-07-2024 End: 08-07-2024 [facility] Start: 07-11-2024 End: 07-11-2024 [facility] Start: 06-12-2024 ambulatory Liliane Taylor Facility [facility] Start: 03-14-2024 End: 03-14-2024 ambulatory ANNA BRADEN Not Available Start: 02-15-2024 End: 02-15-2024 ambulatory Liliane Taylor Facility:[facility] Start: 02-08-2024 End: 02-08-2024 ambulatory YADIRA KALLIE Not Available Start: 01-05-2024 End: 01-05-2024 ambulatory YADIRA KALLIE Not Available Start: 07-01-[address] KAREL CORRAL Facili ty:[facility] Start: 06-15-2022 End: 06-16-[address] WAYNE SOLIMAN Facility:[facility] Start: 04-20-2022 End: 04-21-[address] KAREL CORRAL Facility:[facility] Start: 03-31-2022 End: 04-01-2022 ambulatory ANASTACIA SANCHEZ Facility:[facility] Start: 03-11-2022 End: 03-12-[address] KAREL CORRAL Facility:[facility] Start: 02-25-2022 End: 02-26-[address] KAREL CORRAL Facility:[facility] Start: 01-27-2022 Encounter for preprocedural laboratory examination DR KRAEL CORRAL [facility] Start: 01-26-2022 End: 01-26-[address] KAREL CORRAL Facility:[facility] Start: 01-22-2022 End: 01-23-[address] KAREL CORRAL Facility:[facility] Start: 01-22-2022 End: 01-23-2022 Encounter for preprocedural laboratory examination DR KAREL CORRAL Facility:[facility] Start: 01-12-2022 End: 01-13-[address] YADIRA ARREGUIN Facility:[facility] Start: 01-11-2022 End: 01-11-[address] YADIRA ARREGUIN Facility:[facility] Start: 01-06-2022 End: 01-07-[address] [...] End: 07-21-[address] KAREL CORRAL Facility:[facility] Procedures Date Procedure Procedure Detail Performing Clinician Start: 08-08-2023 Cytp cerv/vag auto t hin layer prep mnl screen Yadira Kallie DO Work Phone: H/O: hysterectomy H/O: hysterectomy Yadira Kallie DO Work Phone: Plan of Treatment Date Care Activity Detail Author Start: 12-25-2024 End: 12-25-2024 Patient encounter procedure [facility] Comment on above: Arrived Start: 12-06-2024 End: 12-06-2025 CT Abdomen and Pelvis WO and W contrast IV CT abdomen pelvis w and wo IV contrast Imaging Routine Pain at surgical incision H/O: hysterectomy Expected: 12/06/2024 (Approximate), Expires: 12/06/2025 [facility] Work Phone: Comment on above: Expected: 12/06/2024 (Approximate), Expires: 12/06/2025 Start: 12-06-2024 End: 12-06-2024 Patient encounter procedure 12/06/2024 9:50 AM EDT Office Visit [facility] [address] [place] [address] Yadira Arreguin DO [address] [place] [address] Arrived [facility] Comment on above: Arrived Payers Date Payer Category Payer Self-pay 2023 [facility] BCBS [id number] 2023 Unknown [id number] 1982 Unknown [id number] 09.16.840.1.354994.3.579.2. 593 1982 Unknown [id number] 09.16.840.1.626101.3.579.2. 593 1982 Unknown [id number] 09.16.840.1.272621.3.579.2. 593 1982 Unknown [id number] 2.16.840.1.657981.3.579.2. 593 1982 Unknown [id number] 2.16.840.1.076262.3.579.2. 593 1982 Unknown [id number] 2.16.840.1.594937.3.579.2. 593 1982 Unknown [id number] 2.16.840.1.852415.3.579.2. 593 1982 Unknown [id number] 2.16.840.1.369579.3.579.2. 593 1982 Unknown [id number] 2..840.1.480037.3.579.2. 593 1982 Unknown [id number] 2..840.1.292297.3.579.2. 593 1982 Unknown [id number] 2..840.1.188538.3.579.2. 593 1982 Unknown [id number] 2..840.1.440544.3.579.2. 593 1982 Unknown [id number] 2..840.1.329245.3.579.2. 593 1982 Unknown [id number] 2.16.840.1.972224.3.579.2. 593 1982 Unknown [id number] 2.16.840.1.653023.3.579.2. 593 1982 Unknown [id number] 2.16.840.1.336132.3.579.2. 593 1982 Unknown [id number] 2.16.840.1.534210.3.579.2. 593 1982 Unknown [id number] 2.16.840.1.794802.3.579.2. 593 1982 Unknown [id number] 2.16.840.1.138197.3.579.2. 593 1982 Unknown [id number] 2.16.840.1.000687.3.579.2. 593 1982 Unknown [id number] 2.16.840.1.832939.3.579.2. 593 1982 Unknown [id number] 2.16.840.1.537140.3.579.2. 593 1982 Unknown [id number] 2.16.840.1.360925.3.579.2. 593 1982 Unknown [id number] 2.16.840.1.235095.3.579.2. 1259 1982 Unknown [id number] 2.16.840.1.888551.3.579.2. 1259 1982 Unknown [id number] 2.16840.1.704296.3.579.2. 1259 1982 Unknown [id number] 2.16840.1.795679.3.579.2. 1259 1959 Unknown [id number] Unknown [id number] 2.16.840.1.364160.3.579.2. 462 Unknown [id number] 2.16840.1.301004.3.579.2. 462 Social History Date Type Detail Facility Start: 01-06-2023 Tobacco smoking stat [facility] Ex-smoker [facility] History of tobacco use Current smoker [facility] History of tobacco use Cigarette Smoker [facility] Start: 01-06-2023 Tobacco use and exposure Smokeless t obacco non-user [facility] Start: 04-06-2023 End: 01-05-2024 History of Social function [facility] Start: 04-06-2023 End: 01-05-2024 Tobacco use panel [facility] Start: 1980 Sex assigned at Not on file [facility] Clinical Notes 08-06-2021 to 12-06-2024 Mya Greenberg LPN - 12/06/2024 9:50 AM EDT Note Date & Type Note Facility 12-06-2024 History of Present illness Narrative Reason for Appointment: Patient ID: Liana Lantigua is a 44 y.o. female who presents for Incisional Pain (Pt present today for an incision check/possible hernia. Pt had a total abdominal hysterectomy on 12/29/2023. ) Patient presents today for Consult appointment. MEDICATIONS Current Outpatient Medications Medication Instructions estradiol (ESTRACE) 0.5 mg, Oral, Daily, Take 1 tablet by mouth for 30 days ibuprofen 800 mg, Oral, 4 times daily pantoprazole (PROTONIX) 40 mg, Oral, Daily phentermine [...] SYSTEMS Review of Systems: Review of Systems Gastrointestinal: Positive for abdominal pain. Genitourinary: Positive for pelvic pain. OBJECTIVE Objective: OBGyn Exam Vitals: Estimated body mass index is 34.3 kg/m as calculated from the following: Height as of 03/14/24: 5' 7 . Weight as of this encounter: 219 lb. BP: 128/72 No LMP recorded (lmp unknown). Patient has had a hysterectomy. ASSESSMENT & PLAN ICD-10-CM 1. Pain at surgical incision L76.82 CT abdomen pelvis w and wo IV contrast CANCELED: POCT urinalysis dipstick manually resulted 2. H/O: hysterectomy Z90.710 CT abdomen pelvis w and wo IV contrast estradiol (Estrace) 0.5 MG tablet CANCELED: POCT urinalysis dipstick manually resulted Patient presents today for abdominal pain. Patient has had pain post operatively and may have a hernia due to lifting items after surgery. Ordered CT scan for patient to have done and patient also desires to have weight management. Metformin sent to patients pharmacy along with Estradiol 0.5mg due to patients complaints of decreased libido. If Estradiol works well, but if patient desires to have increase in medication to improve symptoms further Estradiol can then be increased to 1mg PO daily. Discussed possible Buderer workup in the future if Estradiol does not help. Patient to return to clinic for annual appointment and at that time will initiate Adipex. Patient is already scheduled for Annual. Documented by Mya Greenberg LPN on behalf of: Yadira Arreguin DO documented in this encounter [facility] 08-07-2024 Note Attestation signed by Pro Morales MD at 08/07/2024 8:30 PM I personally saw and examined the patient on the same date of service as resident/fellow . I discussed the findings and therapeutic plan with the resident/fellow . I agree with the documentation, except for any edits/updates below. Teaching Physician's Revisions MRI R Foot The bone marrow signal is without acute fracture or osteonecrosis. No bony erosive or resorptive changes are evident. there is soft tissue T1 and T2 [...] flexor or extensor tendon injury is evident. Discussed these results with the patient this is likely due to mechanical injury/overuse, would recommend orthopedic surgery evaluation and physical therapy, patient reports that she has an appointment with a foot surgeon near where she lives soon, Discussed lab results with the patient positive NISH with unremarkable workup, overall no evidence of autoimmune connective tissue diseases at this point, low positive beta 2 glycoprotein IgM is unlikely to be clinically significant, will repeat next visit [facility] New Patient Visit Subjective Chief Complaint: Follow-up (3 week follow up) Liana Lantigua is an 44 y.o. female presenting to the clinic as a new patient, referred by PCP for the evaluation of rash, arthralgia, and + NISH (06/27/2024: NISH 1:160 speckled pattern, CRP 2.59). On 06/23/2024 in the evening while watching a football game she reported sudden onset sharp pain on her right great toe and medial aspect of her right foot, by the next day it hurt to walk on her foot. She reports PCP gave her an IM steroid shot and Toradol and she noted improvement 2 days after than. She reports she noted swelling and pain at the base of the right great toe, purple color of the toes, exquisitely painful to touch. She reports also she had a scaling/peeling rash on the soles of her bilateral feet occurred on month prior. She reportedly got right foot XR recently, results not available. She reports she eats once a day, eats vegetables, denies excessive quantities of meat. She reports occasional drinking, socially (once every few months). She does take daily THC edibles for back pain (10 mg). She does report Sicca symptoms with dry eyes and ania/gritty sensation in the morning as well as dry mouth. She has chronic low back pain on Ibuprofen 800 mg BID. She recently got 2 Sugar gliders in January 2024, she had a dog that in April, denies any other travel or contact with animal beyond this. She is sexually active with her , monogamous, she is without concerns of STI. PMH of acne, PID, Migraine, eczema, nephrolithiasis, hysterectomy 12/29/2023, 08/07/24: Patient returns to clinic for her 3 week follow-up visit. She continues to have pain in her 1st MTP joint. Most recent labs discussed with the patient. She had an MRI of her right foot that showed tear of the flexor halluses longus tendon as well as bursitis in 1st-3rd MTP. Patient never filled her celecoxib as she never knew it was ready. Feels better. Willing to discuss treatment options with a foot surgeon. Positive labs: 06/27/2024: NISH 1:160 speckled pattern, CRP 2.59, Negative/normal labs: 06/27/2024: RF <10, Uric acid 4.4, CBC w/ diff w/o concerning findings Imaging: no pertinent imaging available Family History: Grandmother- RA, no FH of gout. No other autoimmune diseases or arthritis known in the family. Social: Patient works in [employer] at [employer]. Never smoked tobacco or smokeless, social alcohol (once monthly), and reports daily 10 mg THC edible use, but otherwise denies illicit drug use. Patient is , No history of miscarriages, 1 elective termination. Comprehensive History: Patient Active Problem List Diagnosis Acute postoperative pain Dysmenorrhea Dyspareunia in female Menorrhagia with regular cycle Pelvic pain in female Postop check No past medical history on file. No past surgical history on file. No Known Allergies Social History Socioeconomic History Marital status: Spouse name: None Number of children: None Years of education: None Highest education level: None Occupational History None Tobacco Use Smoking status: Never Smokeless to (more content not included)... [facility] 07-11-2024 Note Attestation signed by Pro Morales MD at 07/11/2024 8:12 PM I personally saw and examined the patient on the same date of service as resident/fellow . I discussed the findings and therapeutic plan with the resident/fellow . I agree with the documentation, except for any edits/updates below. Teaching Physician's Revisions Presents today for evaluation of episode of first MTP pain and swelling, feet rash and dryness, will do further workup as below, [facility] New Patient Visit Subjective Chief Complaint: No chief complaint on file. Liana Lantigua is an 44 y.o. female presenting to the clinic as a new patient, referred by PCP for the evaluation of rash, arthralgia, and + NISH (06/27/2024: NISH 1:160 speckled pattern, CRP 2.59). On 06/23/2024 in the evening while watching a football game she reported sudden onset sharp pain on her right great toe and medial aspect of her right foot, by the next day it hurt to walk on her foot. She reports PCP gave her an IM steroid shot and Toradol and she noted improvement 2 days after than. She reports she noted swelling and pain at the base of the right great toe, purple color of the toes, exquisitely painful to touch. She reports also she had a scaling/peeling rash on the soles of her bilateral feet occurred on month prior. She reportedly got right foot XR recently, results not available. She reports she eats once a day, eats vegetables, denies excessive quantities of meat. She reports occasional drinking, socially (once every few months). She does take daily THC edibles for back pain (10 mg). She does report Sicca symptoms with dry eyes and ania/gritty sensation in the morning as well as dry mouth. She has chronic low back pain on Ibuprofen 800 mg BID. She recently got 2 Sugar gliders in January 2024, she had a dog that in April, denies any other travel or contact with animal beyond this. She is sexually active with her , monogamous, she is without concerns of STI. PMH of acne, PID, Migraine, eczema, nephrolithiasis, hysterectomy 12/29/2023, HPI Positive labs: 06/27/2024: NISH 1:160 speckled pattern, CRP 2.59, Negative/normal labs: 06/27/2024: RF <10, Uric acid 4.4, CBC w/ diff w/o concerning findings Imaging: no pertinent imaging available Family History: Grandmother- RA, no FH of gout. No other autoimmune diseases or arthritis known in the family. Social: Patient works in [employer] at [employer]. Never smoked tobacco or smokeless, social alcohol (once monthly), and reports daily 10 mg THC edible use, but otherwise denies illicit drug use. Patient is , No history of miscarriages, 1 elective termination. Comprehensive History: There is no problem list on file for this patient. No past medical history on file. No past surgical history on file. Not on File Social History Socioeconomic History Marital status: Not on file Spouse name: Not on file Number of children: Not on file Years of education: Not on file Highest education level: Not on file Occupational History Not on file Tobacco Use Smoking status: Not on file Smokeless tobacco: Not on file Substance and Sexual Activity Alcohol use: Not on file Drug use: Not on file Sexual activity: Not on file Other Topics Concern Not on file Social History Narrative Not on file Social Determinants of Health Financial Resource Strain: Not on file Food Insecurity: Not on file Transportation Needs: Not on file Physical Activity: Not on file Stress: Not on file Social Connections: Not on file Intimate Partner Violence: Not on file Housing Stability: Not on file No family history on file. Medication List: No current outpatient medications on file. No current facility-administered medications for this visit. List of current healthcare providers: No care meat team member to display Review of Systems: Review of Systems Constitutional: Negative for appetite change, chills, diaphoresis, fatigue and fever. HENT: Negative for congestion, dental problem and trouble swallowing. Dry mouth Eyes: Negative for pain, discharge, redness and itching. Dry eyes Respiratory: Negative for cough, chest tightness and shortness of breath. Cardiovascular: Negative for chest pain and leg swelling. Gastrointestinal: Negative for abdominal pain, diarrhea, nausea and vomiting. Genitourinary: Negative for dysuria, hematuria and urgency. Musculoskeletal: Positive for arthralgias, back pain and joint swelling. Negative for gait problem. Skin: Positive for color change and rash. Negative for pallor and wound. Neurological: Negative for dizziness, light-headedness and headaches. Hematological: Does not bruise/bleed easily. Psychiatric/Behavioral: Negative for agitation (more content not included)... [facility] 04-20-2022 Note CONSULTATION CONSULTATION DATE: 04/20/2022 CHIEF [...] to proceed. CC: Wayne Soliman M.D. [facility] 03-11-2022 Note CONSULTATION PROCEDURE DATE: 03/11/2022 PROCEDURE [...] that x-ray at her follow up. [facility] 02-25-2022 Note CONSULTATION CONSULTATION DATE: 02/25/2022 HISTORY [...] each site, total of two injections. [facility] 01-06-2022 Note CONSULTATION CONSULTATION DATE: 01/06/2022 This [...] care and would like to move forward. [facility] Signed and Approved by: ANASTACIA SANCHEZ . 01/14/2022 16:04:00 [facility] 12-09-2021 Note CONSULTATION CONSULTATION DATE: 12/09/2021 HISTORY: [...] She will be followed up post procedure. [facility] Signed and Approved by: ANASTACIA SANCHEZ . 12/10/2021 12:52:00 [facility] 10-08-2021 Note CONSULTATION PAIN MANAGEMENT CONSULTATION This [...] by: ANASTACIA SANCHEZ . 10/15/2021 12:38:00 [facility] 08-06-2021 Note The [place], [place] NAME: LIANA JONES DATE OF : MEDICAL REC#: [id number] INTERACTIVE DESIGNER: JAREN CASE ADMIT DATE: 08/06/2021 14:56:00 HOUSE DIRECTOR DATE: 08/10/2021 10:00 DICTATING PHYSICIAN: ANASTACIA SANCHEZ [...] Anastacia Sanchez CNP on 08/16/2021 11:41 PM [facility] Signed and Approved by: ANASTACIA SANCHEZ . 08/16/2021 23:41:00 [facility] Evaluation note Diagnosis Pain at surgical incision H/O: hysterectomy Acquired absence of both cervix and uterus Encounter for weight management documented in this encounter [facility] Summary Purpose Family History No Family History Records FoundNo Family History Records FoundNo Family History Records FoundNo Family History Records Found Advance Directives No Advanced Directives Records FoundNo Advanced Directives Records FoundNo Advanced Directives Records FoundNo Advanced Directives Records Found Additional Source Comments INFORMATION SOURCE (unrecogn ized section and content) DATE CREATED AUTHOR 07/07/[address] [facility] DATE CREATED AUTHOR AUTHOR'S ORGANIZ ATION 06/12/2024 [facility] [place] [facility] DATE CREATED AUTHOR AUTHOR'S ORGANIZ ATION 08/13/2024 [facility] DATE CREATED AUTHOR AUTHOR'S ORGANIZ ATION 12/08/2024 [facility] dical Specialists [facility] Care Teams (unrecognized sec tion and content) Slp Teacher Relationship Specialty Start Date End Date Wayne oSliman MD [address] [place] [address] [phone] PCP - General Family Medicine 01/06/23 Slp Teacher Relationship Specialty Start Date End Date Wayne Soliman MD [address] [place] [address] [phone] PCP - General Family Medicine 01/06/23 Slp Teacher Relationship Specialty Start Date End Date Wayne Soliman MD [address] [place] [address] [phone] PCP - General Family Medicine 01/06/23 Reason for Visit (unrecogniz ed section and content) Reason Comments Incisional Pain Pt present today for an incision check/possible hernia. Pt had a total abdominal hysterectomy on 12/29/2023. FOR RECORDS PERTAINING TO PATIENTS WHO ARE [...] BE BASED ON THE PRIMARY CLINICAL RECORDS. [employer] provides no warranty or guarantee of the accuracy or completeness of information in this document.
[2024-12-28 15:08] LABS: Age Gdln ACOG Testing Note (.); HPV Aptima Negative (Negative); IGP, Aptima HPV, rfx 16/18,45 Note (.)
== END 2024-12-25 19:22 | disposition home or self-care (01) ==
LOC: LAB 19:21
PROVIDERS: PCP Family Medicine; Visit Provider Obstetrics & Gynecology
DX: Z01.419 Encounter for gynecological examination (general) (routine) without abnormal findings (principal)
CPT/HCPCS: 87624; 88175

== ENCOUNTER 2025-01-16 12:43 | Outpatient (OUT) | payer BC, SELFPAY ==
--- OUTSIDE RECORDS SUMMARY | 2024-09-13 09:00 | XMS_ITS ---
Author Organization The [facility] in [place] Address [address] [place] [address] Care Team Providers Care Web Ui Designer Name Role Phone Jose Cruz Soliman Primary Care Provider [phone] Allergies No Known Allergies REASON FOR VISIT [...] 09/13/2024 Active Ketoconazole 2 % 1 application Title I Paraprofessional ally bid for 14 days 09/13/2024 Active [...] Problem Status W/U Status Risk Notes Problem GERD (gastroesopha geal reflux disease) (K21.9) Active confirmed Vital Signs Blood pressure systolic 122 mm Hg 09/13/19 25 Blood pressure diastolic 82 mm Hg 025 Height 67 in 09/13/2024 Weight 210.4 lbs 09/13/2024 BMI 32.95 kg/m2 09/13/2024 Encounters Encounter Location Date Provider Diagnosis [facility] [address] [place] [address] 09/13/2024 Jose Cruz Soliman Tinea pedis B35.3 [...] day(s) 09/13/2024 Ketoconazole 2 % 1 application Title I Paraprofessional ally bid for 14 days 09/13/2024 Terbinafine HCl 250 MG 1 tablet Orally O nce a day for 30 days 09/13/2024 Progress Notes * Joi LANTIGUA LDOB:[birth year] (44 yo F)Acc No.[id number]:09/13/2024 Progress Note Patient: Joi GREENE Provider: Daniel Soliman ([facility])MD :1980 A ge:44 Y S ex:Female Date:09/13/2024 Address:[address] [place], [place] [id number] Check In:12:58 PM ESTCheck O ut:01:30 PM [...] * Active Problem List M19.90 Arthritis Modified On:04/21/2023 Status:confirmed E66.3 Overweight Modified On:04/21/2023 Status:confirmed B07.9 Wart Modified On:04/21/2023 Status:confirmed L30.9 Eczema Modified On:04/21/2023 Status:confirmed M54.30 Sciatic leg pain Modified On:04/21/2023 Status:confirmed K52.9 Gastroenteritis Modified On:04/21/2023 Status:confirmed G43.909 Migraines Modified On:04/21/2023 Status:confirmed M51.26 Herniated lumbar int ervertebral disc Modified On:04/21/2023 Status:confirmed R53.83 Fatigue Modified On:04/21/2023 Status:confirmed L70.0 Cystic acne Modified On:04/21/2023 Status:confirmed N60.19 Fibrocystic breast Modified On:04/21/2023 Status:confirmed N93.8 Dysfunctional uterin e bleeding Modified On:04/21/2023 Status:confirmed N73.9 Pelvic inflammatory disease Modified On:04/21/2023 Status:confirmed L30.8 Eczema craquele Modified On:04/26/2024U Status:confirmed [...] issues. S on(s): alive, Cancer- childhood. D sadier(s): alive.?1 brother(s) . 1 son(s) , 2 [...] Procedure Codes: * Preventive Medicine: Screenings/Counseling: B NC ACTION PLAN Above Normal BMI Follow-up D ietary management education, guidance, and counseling * * Sign off status: Completed Visit Status: C HK (Check Out) true * Provider: Daniel Soliman ([facility])MD Date: 0 09/13/2024 Generated for Aaron copeland/Ashley/eTransmitting on: 0 01/16/2025 12:45 PM EDT History and Physical Notes * [...]
--- OUTSIDE RECORDS SUMMARY | 2024-10-01 09:38 | XMS_ITS ---
Author Organization The [facility] in [place] Address [address] [place] [address] Care Team Providers Care Roller Cleaner Name Role Phone Jose Cruz Soliman Primary Care Provider [phone] REASON FOR VISIT update anxiety Medications Medication SIG (Take, Route, Fr equency, Duration) Notes Start Date End Date Status Mirtazapine 30 MG 1 1/2 tablet at bedt hang Orally Once a day for 30 days 09/13/2024 Active Encounters Encounter Location Date Provider Diagnosis [facility] [address] [place] [address] 10/01/2024 Jose Cruz Soliman Tinea pedis B35. [...] Joi LANTIGUA LDOB:[birth year] (44 yo F)Acc No.[id number]:10/01/2024 Patient: Khris Joi KAPOOR :1980 A ge:44 Y S ex:Female Address:[address] [place] [address] , [place], [address] * Refills Refill Mirtazapine Tablet, 30 MG, Orally, 45, 1 1/2 tablet at bedtime, Once a day, 30 days, Refills=11 * true * Date: Generated for Aaron copeland/Ashley/Rosy on: 0 01/16/2025 12:45 PM EDT
--- OUTSIDE RECORDS SUMMARY | 2024-10-15 11:48 | XMS_ITS ---
Author Organization The [facility] in [place] Address [address] [place] [address] Care Team Providers Care Abalone Diver Name Role Phone Jose Cruz Soliman Primary Care Provider [phone] REASON FOR VISIT anxiety Medications Medication SIG (Take, Route, Frequency, Duration) Notes Start Date End Date Status Abilify 2 MG 1 tablet Orally ever y morning for 30 days 10/15/2024 Active Encounters Encounter Location Date Provider Diagnosis [facility] [address] [place] [address] 10/15/2024 Jose Cruz Soliman Plan Of Treatment Medication Medication Name Sig Start Date Stop Date Notes Abilify 2 MG 1 tablet Orally every morning for 30 days Progress Notes * Joi KHAN LDOB:[birth year] (44 yo F)Acc No.[id number]:10/15/2024 Patient: Khris Joi KAPOOR :1980 A ge:44 Y S ex:Female Address:[address] [place] [address] , [place], [address] * Refills Start Abilify Tablet, 2 MG, Orally, 30, 1 tablet, every morning, 30 days, Refills=11 * true * Date: Generated for Printi ng/Faxing/eTransmitting on: 0 01/16/2025 12:46 PM EDT
--- NOTE | 2025-01-16 | CT_ITS ---
The [address] [address] Patient Name: LIANA KHAN MRN: [id number] date: 1980 Sex: F Assigned Patient Location: CT Current Patient Location: CT Accession/Order Number: [id number] Exam Date: 01/16/2025 14:34 Report Date: 01/16/2025 14:37 At the request of: YADIRA HODGES DO Procedure: CT abdomen pelvis wo/w con CT ABDOMEN AND PELVIS WITH AND WITHOUT INTRAVENOUS CONTRAST: CLINICAL HISTORY: Chronic pain at surgery site. Hysterectomy. COMPARISON: None TECHNIQUE: Spiral images were obtained through the abdomen and pelvis before and after the administration of intravenous contrast. This CT exam was performed using one or more following dose reduction techniques: Automated exposure control, adjustment of the mA and/or kV according to patient size, or use of iterative reconstruction technique. FINDINGS: Lung Bases: [No acute process] Organs:Hepatic steatosis. Gallbladder has been removed. Pancreas spleen and adrenal glands all appear unremarkable. No enhancing renal mass or hydronephrosis. Cysts right kidney. Abdominal aorta appears normal in caliber.[ GI: Stomach is grossly unremarkable. Small bowel appears nondilated. No acute colonic abnormality.[ Pelvis:[Uterus has been removed. Urinary bladder is grossly unremarkable. 3.5 cm left ovarian cyst.] Peritoneum/Retroperitoneum:No free air or free fluid or lymphadenopathy.[ Abd wall/Bones:Abdominal wall demonstrates post surgical changes. No fluid collection is seen. Osseous structures demonstrate degenerative change.[ CT/CT abdomen pelvis wo/w con IMPRESSION: No acute process particularly involving the anterior abdominal wall. No fluid collection to suggest abscess. Impression dictated by: Tree Tyler Jr.OJulio 01/16/2025 2:37 PM Dictation Location: [place] [address] Electronically authenticated by: [id number] Y Date: 01/16/2025 14:37
--- OUTSIDE RECORDS SUMMARY | 2025-01-16 12:45 | XMS_ITS | Encounter Summary ---
Author Organization [facility] Address [address] [facility] [place] [address] Care Team Providers Care Organ Grinder Name Role Phone Aidan Soliman MD Primary Care Provider [phone] Encounter Details Date Type Department Care Team (Late st Contact Info) Description 01/14/[address] [facility] OB [address] [facility] [place] [address] Melody Summers MA Social History Tobacco Use Types Packs/Day Years [...] 01/21/2025 4:00 PM EDT Office Visit [facility] OB Alex[address] [facility] [place] [address] Anna Quarles PA [address] [place] [address] [place], [place] [id number] 01/02/2026 10:00 AM EDT Office [facility] OB [address] [facility] [place] [address] John Arreguin DO [address] [place], [place] [address] [address] documented as of this encounter Procedures Procedure Name Priority Date/Time Associated Diagnosis Comments PAP SMEAR Routine 12/25/2024 12:00 AM EDT documented in this encounter Results * Pap Smear (12/25/2024 12:00 AM EDT) Swab Cervical swab / Unknown us John Arreguin DO LAB CYTOLOGY ORDERABLES Final Re sult EXTERNAL LAB documented in this encounter Visit Diagnoses Not on filedocumented in this encounter Care Teams Organ Grinder Relationship Specialty Start Date End Date Aidan Soliman MD [address] [place] [address] PCP - General Family Medicine 01/06/23 documented as of this encounter
--- OUTSIDE RECORDS SUMMARY | 2025-01-16 12:45 | XMS_ITS | Encounter Summary ---
Author Organization [facility] Address [address] [place] [address] Care Team Providers Care Financial Secretary Name Role Phone Aidan Soliman MD Primary Care Provider [phone] Encounter Details Date Type Department Care Team (Late st Contact Info) Description 02/22/2024 Abstract [facility] OB [address] [place] [address] Tawny Ruelas LPN [address] [place] [id number] Social History Tobacco Use Types Packs/Day Years [...] 01/21/2025 4:00 PM EDT Office Visit [facility] OB [address] [place] [address] Anna Quarles PA [address] [facility] [address] [place], [facility]11 01/02/2026 10:00 AM EDT Office Visit [facility] OB [address] [place] [address] John Arreguin DO [address] [facility] [address] [place], [place] [phone] documented as of this encounter Visit Diagnoses Not on filedocumented in this encounter Care Teams Financial Secretary Relationship Specialty Start Date End Date Aidan Soliman MD [address] [place] [address] PCP - General Family Medicine 01/06/23 documented as of this encounter
--- OUTSIDE RECORDS SUMMARY | 2025-01-16 12:46 | XMS_ITS | Referral Summary ---
Author Organization [facility] Address [address] [place] [address] Care Team Providers Care Feature Writer Name Role Phone Unavailable Primary Care Provider Unavailabl e Allergies No known active allergies Medications HYDROcodone-acet aminophen (Minatare) 5-325 mg tablet take 1 tablet by mouth every 6 hours if needed for pain 4 Active oxyCODONE-acetam inophen (Percocet) 5-325 mg tablet Take 1 tablet by mouth every 6 (six) hours. 4 Active phentermine (Adipex-P) 37.5 mg tablet TAKE 1 TABLET BY MOUTH IN THE MORNING BEFORE MEALS Active Laxative, bisacodyl, 10 mg suppository unwrap and insert 1 suppository rectally once daily 4 Active pantoprazole (ProtoNix) 40 mg EC tablet Take 40 mg by mouth in the morning. Active fluocinonide (Lidex) 0.05 % gel APPLY TO THE AFFECTED AREA(S) TWICE DAILY 4 Active Active Problems Problem Noted Date Diagnosed [...] Recorded Patient Health Questionnaire-2 Score 0 08/07/2024 Comments Unknown Sex and Gender Information Value Date Recorded Sex Assigned at Not on file Legal Sex Female 10:24 AM EST Gender Identity Not on file Sexual Orientation [...] Info) Description 03/13/2025 3:45 PM EDT Follow-Up [facility] Rheumatology [address] [place] [phone] Pro Morales MD [address] [facility] [place] [address] Insurance [facility] Member Subscriber Plan / Payer (Ef fective 2023-Present) Name:Joi Lantigua Member ID:[id number] Relation to Subscriber:Self Name:Joi Lantigua Subscriber ID:[id number] Payer ID:[id number] (NAIC) Type:Not on file Address: [facility] [id number] [place] [address]
--- OUTSIDE RECORDS SUMMARY | 2025-01-16 12:46 | XMS_ITS | Encounter Summary ---
Author Organization [facility] Address [address] [facility] [place] [address] Care Team Providers Care Anime Designer Name Role Phone Aidan Soliman MD Primary Care Provider [phone] Encounter Details Date Type Department Care Team (Late st Contact Info) Description 12/29/2023 Abstract [facility] OB [address] [place] [address] John Arreguin [address] [place], [id number] Social History Tobacco Use Types Packs/Day Years [...] 01/21/2025 4:00 PM EDT Office Visit [facility] OB [address] [place] [address] [place] [address] Anna Quarles PA [address] [place] [address] Dr [place], [id number] 01/02/2026 10:00 AM EDT Office Visit [facility] [address] [place] [address] John Arreguin DO [address] [place], [place] [address] [place] [address] documented as of this encounter Visit Diagnoses Not on filedocumented in this encounter Care Teams Anime Designer Relationship Specialty Start Date End Date Aidan Soliman MD [address] [place] [address] PCP - General Family Medicine 01/06/23 documented as of this encounter
--- OUTSIDE RECORDS SUMMARY | 2025-01-16 12:46 | XMS_ITS | Encounter Summary ---
Author Organization [facility] Address [address] [facility] [place] [address] Care Team Providers Care Supervisor Electron Tube Processing Name Role Phone Aidan Soliman MD Primary Care Provider [phone] Encounter Details Date Type Department Care Team (Late st Contact Info) Description 02/03/2023 Abstract [facility] OB [address] [facility] [place] [phone] Anna Quarles PA [address] [place] [address] Dr [place], [facility]11 Social History Tobacco Use Types Packs/Day Years [...] Description 01/21/2025 4:00 PM EDT Office Visit [facility] OB [address] [facility] [place] [place] [address] Anna Quarles PA [address] [place] [address] Dr [place], [facility] 01/02/2026 10:00 AM EDT Office Visit [facility] OB [address] [place] [address] John Arreguin DO [address] [place] [address] Dr [place], [place] [phone] documented as of this encounter Visit Diagnoses Not on filedocumented in this encounter Care Teams Supervisor Electron Tube Processing Relationship Specialty Start Date End Date Aidan Soliman MD [address] [place] [phone] PCP - General Family Medicine 01/06/23 documented as of this encounter
--- OUTSIDE RECORDS SUMMARY | 2025-01-16 12:46 | XMS_ITS | Clinical Summary ---
Author Organization [facility] Healthcare Address [address] [place] [address] Care Team Providers Care Bottling Line Operator Name Role Phone Aidan Soliman MD Primary Care Provider [phone] Allergies No known active allergies Medications ibuprofen [...] chew, or split. 30 tablet 11 5 Active estradiol (Estrace) 0.1 MG/GM vaginal creamIndications [...] Encounters Date Type Department Care Team Description 01/14/2025 Orders Only [facility] [place] [address] [place] [phone] Melody Summers MA 12/28/2024 Telephone [facility] [place] [address] Mya Greenberg LPN 12/25/2024 10:30 AM EDT Office Visit [facility] [place] [address] John Arreguin DO Well woman exam with routine gynecological exam; Breast cancer screening by mammogram; Dyspareunia in female; H/O: hysterectomy; Encounter for weight management 12/25/2024 Clinisync Result Encounter [facility] External Department Unsolicited John Arreguin DO 12/25/2024 Bamboo flowsheet [facility] [place] [address] John Arreguin DO 12/06/2024 9:50 AM EDT Office Visit [facility] OB [address] [facility] [place] [address] John Arreguin DO Pain at surgical incision; H/O: hysterectomy; Encounter for weight management 12/06/2024 Bamboo flowsheet [facility] OB [address] [facility] [place] [address] John Arreguin DO from Last 3 Months Social [...] 01/21/2025 4:00 PM EDT Office Visit [facility] OB [address] [place] [address] [place] [address] Anna Quarles PA [address] [facility] [place] [address] 01/02/2026 10:00 AM EDT Office Visit [facility] OB [address] [place] [address] [place] [address] John Arreguin DO [address] [facility] [place] [address] Procedures Procedure Name Priority Date/Time Associated Diagnosis Comments IGP,APTIMA HPV,AGE GDLN Routine 12/25/2024 10:36 AM EDT PAP SMEAR Routine 12/25/2024 12:00 AM EDT from Last 3 Months Results * IGP,APTIMA HPV,AGE GDLN (12/25/2024 10:36 AM EDT) AGE GDLN ACOG TESTING Note . [facility] Comment: TESTS RESULT FLAG UNITS REF RANGE LAB Clinician Provided Cytology Information Source.............Vagina No. of containers..01 ThinPrep Vial Binh VICENTE Sarita... 30 01 FLAG LEGEND: L-Low Normal,H-High Normal,LL-Alert Low,HH-Alert High <-Panic Low,>-Panic High,A-Abnormal,AA-Critical Abnormal Performed at: 01 =G [facility] [place] [address] Ml Walsh MD, IGP, APTIMA HPV, RFX 16/18,45 Note . [facility] Comment: TESTS RESULT FLAG UNITS REF RANGE LAB DIAGNOSIS: 02 NEGATIVE FOR INTRAEPITHELIAL LESION OR MALIGNANCY. Specimen adequacy: 02 Satisfactory for evaluation. No endocervical component is identified. Performed by: Simone Maxwell Fire Controlman ([facility]) . 02 Note: Note 02 The Pap smear is a screening test designed to aid in the detection of premalignant and malignant conditions of the uterine cervix. It is not a diagnostic procedure and should not be used as the sole means of detecting cervical cancer. Both false-positive and false-negative reports do occur. Test Methodology: Note 02 This liquid based ThinPrep(R) pap test was screened with the use of an image guided system. HPV Genotype Reflex Note 02 Criteria not met, HPV Genotype not performed. FLAG LEGEND: L-Low Normal,H-High Normal,LL-Alert Low,HH-Alert High <-Panic Low,>-Panic High,A-Abnormal,AA-Critical Abnormal Performed at: [address] [place] [address], [place] [address] Ml Walsh MD, HPV APTIMA Negative Negative [facility] Comment: This nucleic acid amplification test detects fourteen high- risk HPV types (16,18,31,33,35,39,45,51,52,56,58,59,66,68) without differentiation. Performed at: = - [address] [id number] Meter Tester: Ml Walsh MD, Phone: [phone] Performed at: [address] [id number] Meter Tester: Ml Walsh MD, Phone: [phone] 12/25/2024 10:3 6 AM EDT 12/25/2024 9:54 PM EDT Narrative [facility] - 12/28/2024 3:08 PM EDT SPATULA-ALONE VAGINA us John Kallie DO LAB BLOOD ORDERABLES Final Resul t [facility] * Pap Smear (12/25/2024 12:00 AM EDT) Swab Cervical swab / Unknown us John Kallie DO LAB CYTOLOGY ORDERABLES Final Re sult EXTERNAL LAB from Last [address] [place] [address] Care Teams Bottling Line Operator Relationship Specialty Start Date End Date Aidan Soliman MD [address] [place] [address] PCP - General Family Medicine 01/06/23
--- OUTSIDE RECORDS SUMMARY | 2025-01-16 12:46 | XMS_ITS | Encounter Summary ---
Author Organization [facility] Address [address] [facility] [place] [address] Care Team Providers Care Vortex Operator Name Role Phone Aidan Soliman MD Primary Care Provider [phone] Encounter Details Date Type Department Care Team (Late st Contact Info) Description 12/29/[address] [facility] OB [address] [place] [address] John Arreguin [address] [place], [facility]11 Social History Tobacco Use Types Packs/Day [...] PM EDT Office Visit [facility] OB [address] [place] [address] [place] [address] Anna Quarles PA [address] [place] [address] Dr [place], [facility] 01/02/2026 10:00 AM EDT Office Visit [facility] [address] [place] [address] John Arreguin DO [address] [place], [place] [address] [place] [address] documented as of this encounter Visit Diagnoses Not on filedocumented in this encounter Care Teams Vortex Operator Relationship Specialty Start Date End Date Aidan Soliman MD [address] [place] [address] PCP - General Family Medicine 01/06/23 documented as of this encounter
--- OUTSIDE RECORDS SUMMARY | 2025-01-16 12:46 | XMS_ITS | Patient Health Record ---
Author Organization [facility] [place] Address [address] [place] [address] Care Team Providers Care Technician'S Helper Name Role Phone Janny Jose Cruz Primary Care Provider Beni Smith [phone] Allergies No Known Allergies Results Component Value Reference Range Notes XR FOOT RT 2V Reviewed date:07/01/2024 12:20:24 PM Interpretation: Performing Lab: Notes/Report: Source Facility: [place] [address] XRay Report Signed Patient: LIANA LANTIGUA MR#: [id number] : 1980 Acct:[id number] Age/Sex: 44 / F ADM Date: 06/27/24 Loc: RAD Attending Dr: Wayne Thompson M.D. Ordering Physician: Wayne Thompson M.D. Date of Service: 06/27/24 Procedure(s): XR foot RT 2V Accession Number(s): [id number] cc: Wayne Thompson M.D. [place] [address] Patient Name: LIANA LANTIGUA MRN: [id number] date: 1980 Sex: F Assigned Patient Location: RAD Current Patient Location: Accession/Order Number: [id number] Exam Date: 06/27/2024 14:50 Report Date: 07/01/2024 [...] Signed By: 07/01/24 1203 DD/ 1200 TD/TT: Practice Coordinator: [place] [address] XRay Report Signed Patient: MAXIMO LANTIGUA MR#: [id number] : 1980 Acct:[id number] Age/Sex: 44 / F ADM Date: 06/27/24 Loc: [facility] Attending Dr: Helga Thompson M.D. Ordering Physician: Wayne Thompson M.D. Date of Service: 06/27/24 Procedure(s): XR ramin t RT 2V Accession Number(s): [id number] cc: Wayne Thompson M.D. [place] [id number] Patient Name: LIANA LANTIGUA MRN: [id number] date: 1980 Sex: F Assigned Patient Location: [facility] Current Patient Location: Accession/Order Number: [id number] Exam Date: 14:50 Report Date: 07/01/2024 12:00 [...] Signed By: 07/01/24 1203 DD/ 1200 TD/TT: Practice Coordinator: Julian CAMPBELL HPV,Age Gdln Reviewed date:12/30/2024 04:18:48 PM Interpretation: Performing Lab: Notes/Report: SPATULA-ALONE VAGINA [facility] , Age Gdln ACOG Testing Note . <-Panic Low,>-Panic High,A-Abnormal,AA-Crit ical Abnormal Ml Walsh MD, L-Low Normal,H-High Normal,LL-Alert Low,HH-Alert High TESTS RESULT FLAG UNITS REF RANGE LAB Performed at: Source.............Pat garrison Clinician Provided Cytology Information No. of containers..01 ThinPrep Vial Age Diane ACOG Sarita... 30-65 01 FLAG LEGEND: 01 =G [facility] [address] [address] [place] [address] IGP, Aptima HPV, rfx 16/18,45 Note . This liquid based ThinPrep(R) pap test was screened with the use of an image guided system. Ml Walsh MD, Satisfactory for evaluation. No endocervical component is identified. L-Low Normal,H-High Normal,LL-Alert Low,HH-Alert High <-Panic Low,>-Panic High,A-Abnormal,AA-Crit ical Abnormal TESTS RESULT FLAG UNITS REF RANGE LAB DIAGNOSIS: 02 Criteria not met, HPV Genotype not performed. . 02 uterine cervix. It is not a diagnostic procedure and Liana Maxwell, Nurse Specialist (ASCP) Performed at: [address] [place] [place] [address] Specimen adequacy: 02 Note: Note 02 02 [facility] NEGATIVE FOR INTRAEPITHELIAL LESION OR MALIGNANCY. cancer. Both false-positive and false-negative reports do HPV Genotype Reflex Note 02 The Pap smear is a screening test designed to aid in the should not be used as the sole means of detecting cervical detection of premalignant and malignant conditions of the occur. Performed by: 02 FLAG LEGEND: Test Methodology: Note 02 HPV Aptima Negative Negative [address] [facility], [place] [id number] Information Security Manager: Ml Walsh MD, Phone: [phone] risk HPV types (16,18,31,33,35,39,45,5 1,52,56,58,59,66,68) without differentiation. Performed at: [address] [id number] This nucleic acid amplification test detects fourteen high- Information Security Manager: Ml Walsh MD, Phone: [phone] Performed at: [facility] Performing Lab: see note [facility] Antistreptolysin O Ab Reviewed date:06/27/2024 05:28:01 PM Interpretation: Performing Lab: Notes/Report: [facility] , Antistreptolysin O Ab 66.7 0.0-200.0 IU/mL Performed at: [facility] Information Security Manager: Arvind Garsia PhD, Phone: [phone] [address] [place], [place] [id number] Performing Lab: see note [facility] RHEUMATOID FACTOR Reviewed date:06/27/2024 05:28:01 PM Interpretation: Performing Lab: Notes/Report: [facility] , Rheumatoid Factor (RF) <10.0 <14.0 IU/mL Performing Lab: see note [facility] LB NISH by IFA Reviewed date:06/27/2024 05:28:01 PM Interpretation: Performing Lab: Notes/Report: [facility] , Antinuclear Antibodies, IFA Positive . Positive >1:80 Borderline 1:80 Negative <1:80 Homogeneous Pattern TNP . Nucleolar Pattern TNP . Speckled Pattern 1:160 . ICAP nomenclature: AC-2,4,5,29 Dense Fine Speckled pattern is noted. This pattern suggests in systemic autoimmune rheumatic diseases. the presence of DFS70 antibody which has a low prevalence Centromere Pattern TNP . Spindle Apparatus Pattern TNP . Nuclear Membrane Pattern TNP . Midbody Pattern TNP . Nuclear Dot Pattern TNP . PCNA Pattern TNP . Centriole Pattern TNP . Note: Comment . Myositis Overlap Syndrome, Systemic Systemic Lupus Erythematosus, Chronic Nucleolar Systemic Sclerosis, Scleroderma-Autoimmune Autoimmune hepatitis, Juvenile Idiopathic Erythematosus, Subacute Cutaneous Lupus, Rheumatic Disease, Autoimmune Cytopenias, Nuclear Dot Primary Biliary Cholangitis Information Security Manager: Arvind Garsia PhD, Phone: [phone] Erythematosus-Scleroder ma-Autoimmune Arthritis Pattern Potential Disease Association Myositis Overlap Syndrome, Sjogren Autoimmune Rheumatic Disease, Syndrome, Raynaud phenomenon, Pulmonary Nuclear Primary Biliary Cholangitis, Autoimmune Centromere Scleroderma-CREST, Limited Cutaneous SSc, Linear Scleroderma, Antiphospholipid Syndrome Lupus, Congenital Heart Block, Mixed Connective Tissue Disease, Rheumatic Disease, Cancer Homogeneous Systemic Lupus Erythematosus, Drug Induced Speckled Sjogren Syndrome, Systemic Lupus Scleroderma-diffuse, Scleroderma-Autoimmune Membrane Hepatitis/Liver disease, Systemic Autoimmune Undifferentiated Connective Tissue Disease [address], [place], [place] [id number] Myositis Overlap Syndrome, Systemic Lupus Arterial Hypertension, Systemic Autoimmune Raynaud's Phenomenon, Primary Biliary Cholangitis [facility] Performing Lab: see note - [facility] LB CBC AUTO DIFF Reviewed date:06/26/2024 02:30:10 PM Interpretation: Performing Lab: Notes/Report: [facility] , White Blood Count 6.5 4.0-11.0 [...] 3/uL Performing Lab: see note ML - [facility] LB URIC ACID SERUM Reviewed date:06/26/2024 02:30:10 PM Interpretation: Performing Lab: Notes/Report: [facility] , Uric Acid 4.4 2.6-6.0 mg/dL Performing Lab: see note ML - [facility] LB CRP Reviewed date:06/26/2024 02:30:10 PM Interpretation: Performing Lab: Notes/Report: [facility] , C Reactive Protein 2.59 <=0.50 mg/dL Performing Lab: see note ML - [facility] LB MR foot RT wo con Reviewed date:08/05/2024 05:32:28 PM Interpretation: Performing Lab: Notes/Report: Source Facility: [place] [address] [place] [address] Magnetic Resonance Report Signed Patient: LIANA LANTIGUA MR#: [id number] : 1980 Acct:[id number] Age/Sex: 44 / F ADM Date: 07/30/24 Loc: MRI Attending Dr: Wayne Thompson M.D. Ordering Physician: Wayne Thompson M.D. Date of Service: 07/30/24 Procedure(s): MR foot RT wo con Accession Number(s): [id number] cc: Wayne Thompson M.D. [place] [address] Patient Name: LIANA LANTIGUA MRN: [id number] date: 1980 Sex: F Assigned Patient Location: MRI Current Patient Location: Accession/Order Number: [id number] Exam Date: 07/30/2024 15:30 Report Date: 08/02/2024 [...] Signed By: 08/02/24 1224 DD/ 1221 TD/TT: Practice Coordinator: [place] [address] Magnetic Resonance Report Signed Patient: MAXIMO LANTIGUA MR#: [id number] : 1980 Acct:[id number] Age/Sex: 44 / F ADM Date: 07/30/24 Loc: MRI Attending Dr: Helga Thompson M.D. Ordering Physician: Wayne Thompson M.D. Date of Service: 07/30/24 Procedure(s): MR ramin t RT wo con Accession Number(s): [id number] cc: Wayne Thompson M.D. [place] [address] Patient Name: LIANA LANTIGUA MRN: [id number] date: 1980 Sex: F Assigned Patient Location: MRI Current Patient Location: Accession/Order Number: [id number] Exam Date: 15:30 Report Date: 08/02/2024 12:21 [...] Signed By: 08/02/24 1224 DD/ 1221 TD/TT: Practice Coordinator: Reason For Referral Diagnosis 1 Arthritis (M19.90) Referral Organization [facility] Referring Provider First Name Jose Cruz Referring Provider Last Name Janny Referring Provider Speciality [facility] karolina Referred Provider Madyson Quick Referred Provider Specialty Rheumatology Referral Priority Routine Medications Medication SIG (Take, Route, Frequency, Duration) Notes Start Date End Date Status Mirtazapine 30 MG 1 1/2 tablet at bedt hang Orally Once a day for 30 days 09/13/2024 Active Ketoconazole 2 % 1 application [employer] Clerk ally bid for 14 days 09/13/2024 Active [...] Status W/U Status Risk Notes Problem Overweight (552702458) Overweight (E66.3) Active confirmed Problem Fatigue (65585912) Fatigue (R53.83) Active conf irmed Problem Wart (55058076) Wart (B07.9) Active confirmed Problem Gastroesophageal reflux disease (637083008) GERD (gastroesophageal reflux disease) (K21.9) Active confirmed Problem Arthritis (3352320) Arthritis (M19.90) Active c onfirmed Problem Eczema (55589643) Eczema (L30.9) Active confirm ed Problem migraine (disorder) (39746161) Migraines (G43.909) Active confirmed Problem Sciatica (27087198) Sciatic leg pain (M54.30) Active confirmed Problem Gastroenteritis (58776140) Gastroenteritis (K52.9) Active confirmed Problem Fibrocystic breast changes (76394771) Fibrocystic breast (N60.19) Active confirmed Problem Eczema craquele (194034538) 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) Active confirmed Problem Dysfunctional uterine bleeding (05787474109465) Dysfunctional uterine bleeding (N93.8) Active confirmed Problem Cystic acne (43508981) Cystic acne (L70.0) Active confirmed Problem Displacement of lumbar intervertebral disc without myelopathy (20020507) Herniated lumbar intervertebral disc (M51.26) Active confirmed Problem Pelvic inflammatory disease () Pelvic inflammatory disease (N73.9) Active confirmed Vital Signs Blood pressure diastolic 82 mm Hg 09/13/2024 Height 67 in 09/13/2024 Blood pressure systolic 122 mm Hg 09/13/2024 Weight 210.4 lbs 09/13/2024 BMI 32.95 kg/m2 09/13/2024 Encounters Encounter Location Date Provider Diagnosis [facility] [address] [place] [address] 03/14/2024 Jose Cruz Hoy [facility] [address] [place] [address] 04/30/2024 Jose Cruz Hoy Eczema craquele L30. 8 [facility] [address] [place] [address] 04/30/2024 Jose Cruz Hoy [facility] [address] [place] [address] 06/26/2024 Jose Cruz Hoy Right foot pain M79.671 [facility] [address] [place] [address] 06/27/2024 Jose Cruz Hoy [facility] [address] [place] [address] 07/01/2024 Jose Cruz Hoy Soft tissue injury T14.90XA and Foot pain, right M79.671 [facility] [address] [place] [address] 07/09/2024 Jose Cruz Hoy Arthritis M19.90 [facility] [address] [facility] [address] 08/05/2024 Jose Cruz Hoy [facility] [address] [place] [address] 10/01/2024 Jose Cruz Hoy Tinea pedis B35.3 [facility] [address] [place] [address] 10/15/2024 Jose Cruz Hoy [facility] [address] [place] [address] 04/26/2024 Jose Cruz Hoy Eczema craquele L30. 8 [facility] [address] [place] [address] 06/25/2024 Jose Cruz Hoy Arthritis M19.90 [facility] [address] [place] [address] 09/13/2024 Jose Cruz Hoy Tinea pedis B35.3 [...] Right foot pain (ICD-10 - M79.671) 07/01/2024 Soft tissue injury (ICD-10 - T14.90XA) 07/01/2024 Foot pain, right (ICD-10 - M79.671) 07/09/2024 Arthritis (ICD-10 - M19.90) 10/01/2024 Tinea [...] ACCESS PPO PLUS LOCAL PLAN [address] [place] [address] [id number] Liana Lantigua Self - patient is the [...]
--- OUTSIDE RECORDS SUMMARY | 2025-01-16 12:46 | XMS_ITS | Encounter Summary ---
Author Organization [facility] Address [address] [facility] [place] [address] Care Team Providers Care Barratte Operator Name Role Phone Aidan Soliman MD Primary Care Provider [phone] Encounter Details Date Type Department Care Team (Late st Contact Info) Description 01/03/2024 Abstract [facility] [address] [place] [address] Karla Dominguez LPN [address] [facility] [place] [id number] Social History Tobacco Use Types Packs/Day Years [...] 01/21/2025 4:00 PM EDT Office Visit [facility] [address] [place] [address] Anna Quarles PA [address] [place], [facility] 01/02/2026 10:00 AM EDT Office Visit [facility] [address] [place] [address] John Arreguin DO [address] [place] [address] documented as of this encounter Visit Diagnoses Not on filedocumented in this encounter Care Teams Barratte Operator Relationship Specialty Start Date End Date Aidan Soliman MD [address] [place] [address] PCP - General Family Medicine 01/06/23 documented as of this encounter
--- OUTSIDE RECORDS SUMMARY | 2025-01-16 12:46 | XMS_ITS | Clinical Summary ---
Author Organization [facility] Address [address] [place] [address] Care Team Providers Care Hydraulic Pile Hammer Operator Name Role Phone Unavailable Primary Care Provider Unavailabl e Allergies No known active allergies Medications HYDROcodone-acet aminophen ([place]) 5-325 mg tablet take 1 tablet by [...] Info) Description 03/13/2025 3:45 PM EDT Follow-Up [facility] [address] [place] [address] Pro Morales MD [address] [place] [address] Health Maintenance Due Date Last Done Comments [...] on patient's age to complete this topic Insurance [facility] Member Subscriber Plan / Payer (Ef fective 2023-Present) Name:Joi Lantigua Member ID:[id number] Relation to Subscriber:Self Name:Joi Lantigua Subscriber ID:[id number] Payer ID:[id number] (NAIC) Type:Not on file Address: [address] [place] [id number]
== END 2025-01-16 12:44 | disposition home or self-care (01) ==
LOC: CT 12:43
PROVIDERS: PCP Family Medicine; Visit Provider Obstetrics & Gynecology
DX: L76.82 Other postprocedural complications of skin and subcutaneous tissue (principal); Z90.710 Acquired absence of both cervix and uterus
CPT/HCPCS: 74178; Q9967